=== PATIENT | female | born 1940 | race Caucasian/White ===

== ENCOUNTER → 2017-04-30 | Outpatient (CLI) | payer MEDICARE ==
--- NOTE | 2017-04-30 19:14 | CT ---
EXAMINATION TYPE: CT brain wo con DATE OF EXAM: 04/30/2017 COMPARISON: 01/21/2016 HISTORY: Follow up CVA. CT DLP: 1118 mGycm Automated exposure control for dose reduction was used. FINDINGS: Calvarium intact. No acute hemorrhage. Intracranial atherosclerotic changes are noted. Persistent diffuse abnormal attenuation throughout the right cerebellum. This may be related to previ ous ischemia or a less likely consideration would be an arachnoid cyst. Findings are stable. Nonspecific white matter changes are seen bilaterally. Area of low attenuation in the left occipital parietal junction is seen suggestive of additional focal area of ischemia. IMPRESSION: 1. Nonspecific white matter changes most typical remote microvascular ischemia. 2. Remote infarct involving the left occipital parietal junction and right cerebellum suspected. Arac hnoid cyst less likely consideration regard to the right cerebellar hemisphere. Follow-up with MRI co uld BE obtained as clinically warranted.
== END | disposition home or self-care (01) ==
LOC: RADCTMAIN 17:40
PROVIDERS: ATTEND Family Medicine
DX: G93.0 Cerebral cysts (principal); R90.89 Other abnormal findings on diagnostic imaging of central nervous system
CPT/HCPCS: 70450

== ENCOUNTER → 2017-07-23 | Outpatient (CLI) | payer MEDICARE ==
[~2017-07-23] MED LIST: REGADENOSON 0.4 MG/5 ML SYRINGE IV ONE
--- NOTE | 2017-07-23 09:20 | US ---
EXAMINATION TYPE: US carotid duplex BILAT DATE OF EXAM: 07/23/2017 COMPARISON: NONE CLINICAL HISTORY: I10.0 hypertension. Stroke EXAM MEASUREMENTS: RIGHT: Peak Systolic Velocity (PSV) cm/sec ----- Right CCA: 57.5 ----- Right ICA: 71.5 ----- Right ECA: 68.5 ICA/CCA ratio: 1.2 RIGHT: End Diastole cm/sec ----- Right CCA: 17.6 ----- Right ICA: 23.9 ----- Right ECA: 12.4 LEFT: Peak Systolic Velocity (PSV) cm/sec ----- Left CCA: 44.2 ----- Left ICA: 98.0 ----- Left ECA: 47.9 ICA/CCA ratio: 2.2 LEFT: End Diastole cm/sec ----- Left CCA: 17.6 ----- Left ICA: 28.4 ----- Left ECA: 8.6 VERTEBRALS (direction of flow): Right Vertebral: Antegrade Left Vertebral: Antegrade Rhythm: Normal Technically difficult study due to patient heavy breathing Bilateral intimal thickening, no elevated velocities but left ICA/CCA ratio of 2.2. This is likely du e to the slightly low velocity within the left common carotid artery. IMPRESSION: Mild degree of grayscale atheromatous plaquing with no sonographically evident hemodynam ically significant stenosis within either visualized carotid arterial system.
--- NOTE | 2017-07-23 15:59 | NM ---
EXAMINATION TYPE: NM stress lexiscan cardiolite DATE OF EXAM: 07/23/2017 COMPARISON: NONE HISTORY: Hypertension, chest pain, dizziness TECHNIQUE: After the intravenous administration of 10.61 mCi Tc 99m Sestamibi - Cardiolite resting S PECT images acquired 50 minutes post injection. The patient received 0.4mg Lexiscan, 25 mCi Tc 99m Sestamibi - Stress images obtained 30 minutes post injection FINDINGS: No fixed or reversible perfusion defects are evident. Polar maps suggests an apex defect wh ich is not identified on the SPECT images. Ejection fraction is 71% which is normal. Gated wall motion appears normal IMPRESSION: 1. No stress-induced ischemic changes.
--- NOTE | 2017-07-24 11:34 | EST ---
EXERCISE STRESS DATE OF SERVICE: 07/23/2017 TYPE OF REPORT: Lexiscan Cardiolite INDICATIONS: Chest pain. BASELINE HEART RATE: 61 BASELINE BLOOD PRESSURE: 125/77 MAXIMUM HEART RATE: 75 MAXIMUM BLOOD PRESSURE: 140/81 85% MPHR 124 100% MPHR 146 METs MAX STAGE REACHED: TOTAL EXERCISE TIME: CLINICAL INFORMATION: RESULTS: Patient was given Lexiscan injection over a period of 15 seconds. Peak heart rate of 75, was achieved. Maximum blood pressure 140/81 mmHg was noted. The resting EKG shows normal sinus rhythm with normal WA interval and QRS duration and normal ST-T waves. No ST-segment depression suggestive of ischemia is noted. The results of the nuclear study will follow. MMODL / IJN: [id number] /
== END | disposition home or self-care (01) ==
LOC: RADUSWWP 08:04
PROVIDERS: ATTEND Family Medicine
DX: I65.23 Occlusion and stenosis of bilateral carotid arteries (principal); I10 Essential (primary) hypertension
CPT/HCPCS: 93017; 93880; 78452; A9500; J2785

== ENCOUNTER 2017-09-02 12:20 | Emergency (ER) | payer MEDICARE ==
[2017-09-02 12:34] VITALS: TEMP 98.3
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
--- NOTE | 2017-09-02 13:38 | XR ---
EXAMINATION TYPE: XR knee complete RT DATE OF EXAM: 09/02/2017 CLINICAL HISTORY: Right knee pain after fall TECHNIQUE: Three views of the right knee are obtained. COMPARISON: None. FINDINGS: There is no acute fracture/dislocation evident in right knee. The tri-compartment joint s paces are symmetric. Very small marginal osteophytes are seen of the distal femoral condyles. No susp icious osseous lesion. Incidentally noted fabella. The overlying soft tissue appears unremarkable. IMPRESSION: There is no acute fracture or dislocation in the right knee.
--- NOTE | 2017-09-02 13:51 | CT ---
EXAMINATION TYPE: CT brain gypsy wo con DATE OF EXAM: 09/02/2017 COMPARISON: Brain 04/30/2017 HISTORY: 76-year-old female with Fall, head and shoulder injury CT DLP: Head (1716.60) and Body (358.90) mGycm Automated exposure control for dose reduction was used. Technique: Examination of the head was done in axial plane without intravenous contrast. Coronal and sagittal reconstructions performed. CT of the cervical spine was obtained in axial plane without intravenous injection of contrast mater ial. Coronal and sagittal reformatted images were obtained from the axial views for evaluation of f ractures, spinal alignment and canal. FINDINGS: Head: There is no evidence of acute intracranial hemorrhage, acute ischemic changes, mass, mass-effect, or extra-axial fluid collection. There is no effacement of cerebral sulci or basal subarachnoid cister ns. There is no hydrocephalus. There is no midline shift. Ivan-white matter distinction is preserv ed. Stable CSF space inferior right cerebellar hemisphere and small area of encephalomalacia posterior le ft occipital lobe. Stable moderate to severe patchy white matter hypodensities in both cerebral hemispheres. Mastoid air cells well pneumatized. Orbits and globes appear intact. No calvarial fracture seen. Cervical spine: No craniocervical junction abnormality, predental space widening, or prevertebral soft tissue swellin g. Reversal of the normal cervical lordosis with moderate disc/endplate degenerative change mid to lower cervical spine. Facet and uncovertebral joint arthropathy is present with grade 1 retrolisthesis at C5-C6 and grade 1 anterolisthesis at C7-T1 and T1-T2. Discussed by complexes at C4-C5 and C5-C6 mildly narrowing the spinal canal encroaching onto the left paracentral region. Variable mild to moderate neuroforaminal narrowing mid to lower cervical spine. No acute fracture seen. Degenerative changes at the TMJs. Sagittal and coronal reformatted images confirm above findings. COMBINED IMPRESSION: Head: 1. No acute intracranial abnormality seen. 2. Stable old infarct posterior left occipital lobe and large CSF space inferior right cerebellar hem isphere either due to old PICA infarct or underlying arachnoid cyst with the former being favored. Mo derate to severe patchy white matter changes are also unchanged and likely relate to chronic small ve ssel ischemic disease. Cervical spine: 3. No acute fracture of the cervical spine. Moderate spondylotic change with reversal of the normal c ervical lordosis. Degenerative grade 1 spondylolisthesis at a few levels.
--- NOTE | 2017-09-02 13:56 | CT ---
EXAMINATION TYPE: CT facial bones wo con DATE OF EXAM: 09/02/2017 COMPARISON: None HISTORY: 76-year-old female with pain after fall, head and shoulder injury TECHNIQUE: Contiguous axial scanning of the facial bones without IV contrast. Coronal reconstructions performed. CT DLP: Head (1716.60) and Body (358.90) mGycm Automated exposure control for dose reduction was used. FINDINGS: There is mild contusion along the left frontal region. Orbits and globes appear intact. Leftward nasal septal deviation. No nasal bone fracture. The zygomat ic arches and pterygoid plates remain intact. The inferior most aspects of the maxillary are outside the field of view and a greater portion includ ed after a rescan from the mid orbits down. Degenerative changes at the TMJs IMPRESSION: NO ACUTE FACIAL BONE FRACTURE SEEN. MILD LEFT FRONTAL SCALP CONTUSION.
--- NOTE | 2017-09-02 14:06 | XR ---
EXAMINATION TYPE: XR shoulder complete RT DATE OF EXAM: 09/02/2017 CLINICAL HISTORY: Fall with subsequent right shoulder pain TECHNIQUE: Three views of the right shoulder are obtained. COMPARISON: None. FINDINGS: There is no acute fracture/dislocation evident in the right shoulder. The acromioclavicul ar and glenohumeral joint spaces appear within normal limits. The visualized ribs are intact and unr emarkable. Multiple metallic densities are seen external to the patient. IMPRESSION: There is no acute fracture or dislocation in the right shoulder.
[2017-09-02 14:43] VITALS: BP 128/74; PULSE 74; RESP 16
== END 2017-09-02 14:40 | disposition home or self-care (01) ==
LOC: EC 12:20
DX: S43.401A Unspecified sprain of right shoulder joint, initial encounter (principal); S00.12XA Contusion of left eyelid and periocular area, initial encounter; S80.01XA Contusion of right knee, initial encounter; M25.511 Pain in right shoulder; R90.82 White matter disease, unspecified; M47.812 Spondylosis without myelopathy or radiculopathy, cervical region; M43.8X2 Other specified deforming dorsopathies, cervical region; E78.5 Hyperlipidemia, unspecified; E07.9 Disorder of thyroid, unspecified; F41.9 Anxiety disorder, unspecified; Z79.02 Long term (current) use of antithrombotics/antiplatelets; Z79.899 Other long term (current) drug therapy; Z86.718 Personal history of other venous thrombosis and embolism; W18.09XA Striking against other object with subsequent fall, initial encounter; Y92.015 Private garage of single-family (private) house as the place of occurrence of the external cause
CPT/HCPCS: 70450; 70486; 72125; 99284

== ENCOUNTER → 2018-07-21 | Outpatient (CLI) | payer MEDICARE ==
--- NOTE | 2018-07-21 14:32 | US ---
EXAMINATION TYPE: US carotid duplex BILAT DATE OF EXAM: 07/21/2018 COMPARISON: NONE CLINICAL HISTORY: In10 hypertension. h/o stroke, hypertension EXAM MEASUREMENTS: RIGHT: Peak Systolic Velocity (PSV) cm/sec ----- Right CCA: 99.3 ----- Right ICA: 65.1 ----- Right ECA: 109.5 ICA/CCA ratio: 0.7 RIGHT: End Diastole cm/sec ----- Right CCA: 22.3 ----- Right ICA: 14.5 ----- Right ECA: 25.4 LEFT: Peak Systolic Velocity (PSV) cm/sec ----- Left CCA: 57.9 ----- Left ICA: 69.0 ----- Left ECA: 11.7 ICA/CCA ratio: 1.2 LEFT: End Diastole cm/sec ----- Left CCA: 16.6 ----- Left ICA: 27.3 ----- Left ECA: 11.7 VERTEBRALS (direction of flow): Right Vertebral: Antegrade Left Vertebral: Antegrade Rhythm: Normal Challenging study due to heavy breathing. Mild heterogeneous plaque seen with no significant stenosis . IMPRESSION: Mild degree of grayscale atheromatous plaquing with no sonographically evident hemodynam ically significant stenosis within either visualized carotid arterial system. Criteria for Assigning % of Stenosis / Diameter reduction (Estimation based on the indirect measurements of the internal carotid artery velocities (ICA PSV). 1. Normal (no stenosis)=ICA PSV < 125 cm/s: ratio < 2.0: ICA EDV<40 cm/s. 2. Less than 50% stenosis=ICA PSV < 125 cm/s: ratio < 2.0: ICA EDV<40 cm/s. 3. 50 to 69% stenosis=ICA PSV of 125 to 230 cm/s: ration 2.0 ? 4.0: ICA EDV 40-100 cm/s. 4. Greater than 70% stenosis to near occlusion= ICA PSV > 230 cm/s: ratio > 4.0: ICA EDV > 100 cm/s. 5. Near occlusion= ICA PSV velocities may be low or undetectable: variable ratio and ICA EDV. 6. Total occlusion=unable to detect flow.
--- NOTE | 2018-07-21 19:08 | ECHOF ---
Referral Reason:In10 hypertension MEASUREMENTS -------- HEIGHT: 165.1 cm WEIGHT: 73.0 kg BP: IVSd: 0.9 cm (0.6 - 1.1) LVIDd: 4.1 cm (3.9 - 5.3) LVPWd: 1.0 cm (0.6 - 1.1) IVSs: 1.3 cm LVIDs: 2.8 cm LVPWs: 1.6 cm LAESV Index (A-L): 23.99 ml/m Ao Diam: 3.5 cm (2.0 - 3.7) AV Cusp: 2.7 cm (1.5 - 2.6) LA Diam: 2.1 cm (2.7 - 3.8) MV EXCURSION: 21.866 mm (> 18.000) MV EF SLOPE: 108 mm/s (70 - 150) EPSS: 1.7 cm MV E Bradly: 0.93 m/s MV DecT: 159 ms MV A Bradly: 1.01 m/s MV E/A Ratio: 0.92 AV maxP.04 mmHg AV meanP.82 mmHg AR PHT: 485 ms RAP: 15.00 mmHg RVSP: 35.19 mmHg FINDINGS -------- Sinus rhythm. This was a technically good study. The left ventricular size is normal. Left ventricular wall thickness is normal. Overall left vent ricular systolic function is low-normal with, an EF between 50 - 55 %. The right ventricle is normal in size. Normal LA size by volume 22+/-6 ml/m2. The right atrial size is normal. Interatrial and interventricular septum intact. Aortic valve is trileaflet and is mildly thickened. There is mild aortic valve sclerosis. There i s moderate aortic regurgitation. Peak/mean gradient across the Aortic Valve is 12.04mmHg / 4.82mmHg . The mitral valve leaflets are mildly thickened. Mild mitral annular calcification present. Mild m itral regurgitation is present. Mild tricuspid regurgitation present. There is no evidence of pulmonary hypertension. The right v entricular systolic pressure, as measured by Doppler, is 35.19mmHg. There is no pulmonic regurgitation present. The aortic root size is normal. The inferior vena cava is mildly dilated. There is no pericardial effusion. CONCLUSIONS -------- 1. Sinus rhythm. 2. This was a technically good study. 3. The left ventricular size is normal. 4. Left ventricular wall thickness is normal. 5. Overall left ventricular systolic function is low-normal with, an EF between 50 - 55 %. 6. The right ventricle is normal in size. 7. Normal LA size by volume 22+/-6 ml/m2. 8. The right atrial size is normal. 9. Interatrial and interventricular septum intact. 10. Aortic valve is trileaflet and is mildly thickened. 11. There is mild aortic valve sclerosis. 12. There is moderate aortic regurgitation. 13. Peak/mean gradient across the Aortic Valve is 12.04mmHg / 4.82mmHg. 14. The mitral valve leaflets are mildly thickened. 15. Mild mitral annular calcification present. 16. Mild mitral regurgitation is present. 17. Mild tricuspid regurgitation present. 18. There is no evidence of pulmonary hypertension. 19. The right ventricular systolic pressure, as measured by Doppler, is 35.19mmHg. 20. There is no pulmonic regurgitation present. 21. The aortic root size is normal. 22. The inferior vena cava is mildly dilated. 23. There is no pericardial effusion. DISASTER RECOVERY ANALYST: Nancy Greer RDCS
== END | disposition home or self-care (01) ==
LOC: RADECHMAIN 13:17
PROVIDERS: ATTEND Family Medicine
DX: I65.23 Occlusion and stenosis of bilateral carotid arteries (principal); I10 Essential (primary) hypertension
CPT/HCPCS: 93306; 93880

== ENCOUNTER 2018-07-27 08:23 | Day surgery (SDC) | payer MEDICARE ==
[2018-07-22 09:12] VITALS: BMI 26.8
[~2018-07-27 08:23] MED LIST changes: +LACTATED RINGERS 1,000 ML IV SCH; +LIDOCAINE 1% 20 ML VIAL (10MG/ML) FOR IV START INTRADERMA PRN; -REGADENOSON 0.4 MG/5 ML SYRINGE IV ONE; +TETRACAINE 0.5% OPHTH (PF) DROPS 4 ML BTL OP ONE
[2018-07-27 09:00] VITALS: TEMP 98.1
[2018-07-27] MEDS: PILOCARPINE 2% OPHTH DROPS 15 ML BTL OP ONE ×3 (09:08→09:28)
[2018-07-27] MEDS ORDERED: MIDAZOLAM 2 MG/2 ML VIAL ONE (09:53)
[2018-07-27] MEDS ORDERED: fentaNYL (PF) 50 MCG/ML 2 ML AMP ONE (09:53)
[2018-07-27] MEDS ORDERED: BALANCED SALT IRRIG SOLN COMB2 15 ML IRRIG.SOLN INTRAOCULA ONE (10:11)
[2018-07-27] MEDS ORDERED: BALANCED SALT IRRIG SOLN COMB2 500 ML IRRIGATION ONE (10:12)
[2018-07-27] MEDS ORDERED: TRYPAN BLUE 0.06% SYRINGE 0.5 ML SYRINGE INTRAOCULA ONE (10:12)
[2018-07-27] MEDS ORDERED: ATROPINE OPHTH SOLN 1% 2 ML BTL RIGHT EYE ONE (10:19)
[2018-07-27] MEDS ORDERED: TIMOLOL 0.5% OPHTH SOLN (PF) 0.2 ML DROPERETTE RIGHT EYE ONE (10:20)
[2018-07-27] MEDS ORDERED: LIDOCAINE 1% (PF) 10 MG/ML (30 ML SDV) INTRAARTIC ONE (10:20)
[2018-07-27] MEDS ORDERED: MOXIFLOXACIN HCL 0.5% DROPS 3 ML BTL RIGHT EYE ONE (10:22)
--- NOTE | 2018-07-27 11:08 | P.OP ---
Date of Procedure: 07/27/18 Preoperative Diagnosis: Fuch's dystrophy Postoperative Diagnosis: same Procedure(s) Performed: DMEK Implants: none Anesthesia: MAC Surgeon: Adama Toribio Estimated Blood Loss (ml): 0 Pathology: other Condition: stable Disposition: same day Indications for Procedure: blurring vision Operative Findings: No complications
[2018-07-27 11:30] VITALS: RESP 16
[2018-07-27 12:30] VITALS: BP 153/84; PULSE 66
--- NOTE | 2018-07-27 15:20 | OP ---
OPERATIVE REPORT DATE OF SURGERY: 07/27/2018 PROCEDURE: Descemet's membrane and endothelial keratoplasty of the right eye. 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 SURGEON: Dr. Adama Toribio. ANESTHESIA: Topical. ESTIMATED BLOOD LOSS: None. SPECIMEN TAKEN: None. After obtaining the appropriate consent, the patient was brought to the operating room. There she was placed under cardiac monitoring, prepped and draped in the usual sterile manner. She was approached from her right temporal side and 4 paracenteses were placed in each of the diagonal quadrants with an MVR blade. This was followed by installation of lidocaine MPF 50-50 mix with balanced salt solution into the anterior chamber. Once this was accomplished, Tri san blue was used to stain the tissues of the anterior chamber and was left in place for 3 minutes. Once irrigated away. The anterior chamber was then stabilized with Amvisc, an 8 mm keratome was placed on the patient's cornea and lightly indented into the epithelium. Gentian eduardo was then used to outline the layton of this ring. At the 9 o'clock position a 2.5 mm keratome was used to create a self-sealing corneal flap incision which was enlarged slightly to accommodate a Razo tube opening. A Abound Solarskey hook was introduced into the anterior chamber and used in the outline and placed on the patient's corneal epithelium. A quartz valley was identified using the Descemet's stripper. The epithelium from the center area of the cornea was removed in its entirety. Once the tissue was removed, all the remaining viscoelastic was removed under irrigation aspiration, leaving behind nothing more than balanced salt solution in the patient's anterior chamber. The anterior chamber was deflated slightly to accommodate the donor tissue. The donor tissue as identified as [id number], the [id number]. As cornea an ophthalmology yes, lamellar posterior layer only. This was brought to the field after removal from its transport container and prepared for patient delivery. The tissue was delivered without any problem into the patient's anterior chamber and a temporal incision was closed in a single 10-0 nylon suture. Once the incision was closed, the tissue was manipulated to orient it in the correct anterior-posterior orientation. An "S" layton had been placed on the donor tissue which helped identify the proper orientation. Once the tissue was reasonably well centered, a small amount of air was used to buoy it against the patient's corneal stroma with a little bit of minor manipulation to further center the donor tissue. Once this was accomplished, a 20% SF6 was injected into the patient's anterior chamber, which was left in place for approximately 20 minutes. The patient remained capable of seeing light through the entire hypertensive phase of the procedure and at the end of the 20 minutes time, a small amount of SF 6 was removed and balanced salt solution was used to replace it leaving the eye approximately 40% filled with SF6 gas. The patient was then returned to the recovery area where she remained supine for an additional hour and a half. At the end of that time, she was examined under slit lamp, corneal tissue appeared to be in good position. The patient was comfortable and was then sent to be released from recovery to home. There were no complications from this procedure. She tolerated the procedure well. ERIKA / KT: [id number] /
== END 2018-07-27 13:03 | disposition home or self-care (01) ==
LOC: OR 08:23
PROVIDERS: ATTEND Ophthalmology
DX: H18.51 Endothelial corneal dystrophy (principal); H26.492 Other secondary cataract, left eye; Z98.42 Cataract extraction status, left eye; Z98.41 Cataract extraction status, right eye; Z94.7 Corneal transplant status; Z96.1 Presence of intraocular lens; I11.9 Hypertensive heart disease without heart failure; E07.9 Disorder of thyroid, unspecified; Z87.891 Personal history of nicotine dependence; E78.5 Hyperlipidemia, unspecified; I69.393 Ataxia following cerebral infarction; M19.90 Unspecified osteoarthritis, unspecified site; J45.909 Unspecified asthma, uncomplicated; Z79.02 Long term (current) use of antithrombotics/antiplatelets; Z79.890 Hormone replacement therapy; Z79.899 Other long term (current) drug therapy
CPT/HCPCS: 87070; 87205; 87075; 65756; 65757; V2785; J2250; J2001; J3010

== ENCOUNTER → 2018-10-04 | Outpatient (CLI) | payer MEDICARE ==
--- NOTE | 2018-10-05 10:34 | MR ---
EXAMINATION TYPE: MR brain wo/w con DATE OF EXAM: 10/04/2018 COMPARISON: CT brain 09/02/2017 HISTORY: 77-year-old female CVA, dizziness, bilateral arm tingling TECHNIQUE: Fast brain protocol was utilized as the patient was having difficulty holding still. Mult iplanar, multisequence images of the brain and brainstem is performed without and with IV contrast, u tilizing 7.5 mL intravenous Gadavist . Diffusion-weighted imaging is performed. FINDINGS: Absence of the inferior left cerebellar hemisphere suspected be secondary to prior large infarct. Diffusion weighted images demonstrate no evidence of a recent infarct or other diffusion abnormality. There is no extra-axial fluid collection collection. Mild generalized supratentorial volume loss. T2/FLAIR weighted sequences show severe patchy burden of right white matter change in both cerebral h emispheres located within the subcortical, deep, and periventricular region of both cerebral hemisphe res. Additional T2 bright gliosis is present along the encephalomalacia margin in the right cerebella r hemisphere. The ventricular system and cisternal spaces are normal in size and appearance. The brain volume is a ge appropriate. Midline structures demonstrate normal morphology. The craniocervical junction appears within normal limits. Post contrast images demonstrate no abnormal enhancement. The dural venous sinuses appear patent. The visualized sinuses are clear and the globes are intact. Leftward nasal septal deviation. IMPRESSION: 1. Absence/encephalomalacia involving the inferior aspect of the right cerebellar hemisphere suggesti ng prior large infarct. Clinically correlate. 2. Extensive patchy T2 bright white matter change suggesting severe burden of chronic small vessel is chemic disease. 3. No acute intracranial abnormality seen. 4. No enhancing lesions.
== END | disposition home or self-care (01) ==
LOC: RADMRIMAIN 13:56
PROVIDERS: ATTEND Family Medicine
DX: G93.89 Other specified disorders of brain (principal); I67.9 Cerebrovascular disease, unspecified
CPT/HCPCS: 70553; A9585

== ENCOUNTER 2019-09-04 16:03 | Inpatient (IN) | payer MEDICARE ==
[2019-09-04] MEDS ORDERED: hydrALAZINE HCL 20 MG/ML 1 ML VIAL IVP PRN (18:24)
[2019-09-04] MEDS ORDERED: MECLIZINE 25 MG TAB PO PRN (18:26)
[2019-09-04 19:16] LABS: ALT 14 U/L (4-34); AST 25 U/L (14-36); African American GFR (CKD) >90 (>60 ml/min/1.73 sqM); Albumin 4.2 g/dL (3.5-5.0); Alkaline Phosphatase 42 U/L (38-126); Anion Gap 9 mmol/L; Blood Urea Nitrogen 14 mg/dL (7-17); Carbon Dioxide 28 mmol/L (22-30); Chloride 104 mmol/L (98-107); Glucose 104 mg/dL (74-99); Non-African American GFR(CKD) 82 (>60 ml/min/1.73 sqM); Potassium 3.5 mmol/L (3.5-5.1); Sodium 141 mmol/L (137-145); Total Bilirubin 0.4 mg/dL (0.2-1.3); Total Protein 6.6 g/dL (6.3-8.2)
[2019-09-04 19:26] LABS: Basophils # (A) 0.1 k/uL (0-0.2); Basophils % (A) 1 %; Eosinophils # (A) 0.2 k/uL (0-0.7); Eosinophils % (A) 2 %; HCT 36.9 % (34.0-46.0); HGB 12.1 gm/dL (11.4-16.0); Lymphocytes # (A) 1.8 k/uL (1.0-4.8); Lymphocytes % (A) 22 %; MCH 28.5 pg (25.0-35.0); MCHC 32.9 g/dL (31.0-37.0); MCV 86.6 fL (80.0-100.0); Mean Platelet Volume 8.2; Monocytes # (A) 0.5 k/uL (0-1.0); Monocytes % (A) 6 %; Neutrophils # (A) 5.8 k/uL (1.3-7.7); Neutrophils % (A) 68 %; Platelet Count 248 k/uL (150-450); RBC 4.25 m/uL (3.80-5.40); RDW 14.5 % (11.5-15.5); WBC 8.5 k/uL (3.8-10.6)
[2019-09-04 20:20] LABS: Appearance,Urine Clear (Clear); Bilirubin,Urine Negative (Negative); Blood,Urine Negative (Negative); Color,Urine Yellow; Glucose,Urine (UA) Negative (Negative); Ketones,Urine Negative (Negative); Leukocyte Esterase,Urine Moderate (Negative); Mucus,Urine Few /hpf; Nitrite,Urine Negative (Negative); PH, Urine 5.5 (5.0-8.0); Protein,Urine Negative (Negative); RBC,Urine 2 /hpf (0-5); Specific Gravity,Urine 1.014 (1.001-1.035); Urobilinogen,Urine <2.0 mg/dL (<2.0); WBC,Urine 12 /hpf (0-5)
[2019-09-04] MEDS ORDERED: ACETAMINOPHEN TAB 325 MG TAB PO STA (20:40)
[2019-09-05 04:12] LABS: Hemoglobin A1C 5.8 % (4.0-6.0)
[2019-09-05] MEDS ORDERED: ACETAMINOPHEN TAB 325 MG TAB PO STA ×2 (05:12→15:44)
[2019-09-05] MEDS: LEVOTHYROXINE 75 MCG TAB PO SCH (06:34)
[2019-09-05 06:52] LABS: Basophils % (A) 1 %; Eosinophils # (A) 0.2 k/uL (0-0.7); Eosinophils % (A) 2 %; HCT 35.3 % (34.0-46.0); HGB 11.5 gm/dL (11.4-16.0); Lymphocytes # (A) 1.7 k/uL (1.0-4.8); Lymphocytes % (A) 22 %; MCH 28.2 pg (25.0-35.0); MCHC 32.6 g/dL (31.0-37.0); MCV 86.6 fL (80.0-100.0); Mean Platelet Volume 8.4; Monocytes # (A) 0.5 k/uL (0-1.0); Monocytes % (A) 6 %; Neutrophils # (A) 5.2 k/uL (1.3-7.7); Neutrophils % (A) 67 %; Platelet Count 235 k/uL (150-450); RBC 4.08 m/uL (3.80-5.40); RDW 14.5 % (11.5-15.5); WBC 7.8 k/uL (3.8-10.6)
[2019-09-05 07:02] LABS: ALT 13 U/L (4-34); AST 24 U/L (14-36); African American GFR (CKD) >90 (>60 ml/min/1.73 sqM); Albumin 3.7 g/dL (3.5-5.0); Alkaline Phosphatase 43 U/L (38-126); Anion Gap 5 mmol/L; Blood Urea Nitrogen 12 mg/dL (7-17); Calcium 8.8 mg/dL (8.4-10.2); Carbon Dioxide 28 mmol/L (22-30); Chloride 105 mmol/L (98-107); Glucose 95 mg/dL (74-99); Non-African American GFR(CKD) 84 (>60 ml/min/1.73 sqM); Potassium 3.5 mmol/L (3.5-5.1); Sodium 138 mmol/L (137-145); Total Bilirubin 0.5 mg/dL (0.2-1.3); Total Protein 6.2 g/dL (6.3-8.2)
[2019-09-05] MEDS: FENOFIBRATE 160 MG TAB PO SCH (08:06)
[2019-09-05] MEDS: ASPIRIN 81 MG PO SCH (08:06)
[2019-09-05] MEDS: CITALOPRAM HYDROBROMIDE 20 MG TAB PO SCH (08:06)
[2019-09-05] MEDS: ATORVASTATIN 10 MG TAB PO SCH (08:06)
[2019-09-05] MEDS: DILTIAZEM CD 240 MG CAP.ER.24H PO SCH (08:06)
[2019-09-05] MEDS ORDERED: CLOPIDOGREL 75 MG TAB PO SCH (09:00)
--- NOTE | 2019-09-05 09:20 | MR ---
EXAMINATION TYPE: MR brain wo/w con DATE OF EXAM: 09/05/2019 COMPARISON: 10/04/2018 HISTORY: cva/tia, Headaches, Preasure in head behind eyes, hx of prior stroke TECHNIQUE: Multiplanar, multisequence images of the brain and brainstem is performed without and with IV contras t, utilizing 7.5 mL intravenous Gadavist . FINDINGS: Diffusion weighted images demonstrate a 5 mm area of high signal in the left occipital lobe image 11. No remaining areas of abnormal signal on diffusion. There is mild generalized degenerative change with diffuse confluent and numerous focal areas of abno rmal signal throughout the white matter bilaterally a pattern most typical remote ischemia. Abnormal signal noted in the left occipital lobe and within the right cerebellum compatible with previous infa rction and encephalomalacia. No midline shift or mass effect. No enhancing mass. Midline structures demonstrate normal morphology. The craniocervical junction appears within normal limits. Post contrast images demonstrate no abnormal enhancement. The dural venous sinuses appear pa tent. Changes of chronic sinusitis and nasal septal deviation noted. Orbits are symmetric. There is s ome ectasia of the optic nerve which is a nonspecific finding. IMPRESSION: 1. Findings are compatible with a small and left occipital lobe 5 mm area of acute to subacute ischem ia left occipital lobe. 2. Degenerative and diffuse nonspecific white matter changes most typical remote ischemia. 3. Remote areas of infarction
--- NOTE | 2019-09-05 11:58 | P.CRDCN ---
History of Present Illness History of present illness: HISTORY OF PRESENTING ILLNESS This is a pleasant 78-year-old female past medical history significant for hypertension, dyslipidemia and prior CVA. 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 She used to see Dr. Sloan last visit was 2013. We have been asked to see in consultation for hypertension. She was sent in as a direct admit from her primary care physician secondary to persistent headache and elevated blood pressures. She states she has a full sensation in her face. She had been attributing this to sinus congestion. Her primary care physician attempted to initiate losartan however she states she cannot tolerate. She tried taking that on 3 separate occasions and a cause significant tremors. She denies symptoms of chest pain, shortness of breath, dizziness or palpitations. She underwent an MRI this mo rning revealing small left occipital lobe 5 mm area of acute to subacute ischemia. Blood pressure on arrival was 172/75 and 168/92. Repeat this morning 135/76 with a heart rate of 65. She underwent an echocardiogram July 2018 revealing preserved LV systolic function with ejection fraction 50-55% with mild aortic stenosis with a mean gradient of 4 mmHg. Lexiscan stress test performed in 2017 was negative for stress-induced reversible ischemia. Currently maintained on aspirin 81 mg daily, Plavix 75 mg daily, diltiazem 240 mg daily, chlorthalidone 25 mg every other day and rosuvastatin 5 mg daily. No acute EKG changes. REVIEW OF SYSTEMS At the time of my exam: CONSTITUTIONAL: Denies fever or chills. CARDIOVASCULAR: Denies chest pain, shortness of breath, orthopnea, PND or palpitations. RESPIRATORY: Denies cough. GASTROINTESTINAL: Denies abdominal pain, diarrhea, constipation, nausea or vomiting. MUSCULOSKELETAL: Denies myalgias. NEUROLOGIC: Denies numbness, tingling or weakness. ENDOCRINE: Denies fatigue, weight change, polydipsia or polyurina. GENITOURINARY: Denies burning, hematuria or urgency with micturation. HEMATOLOGIC: Denies history of anemia or bleeding. PHYSICAL EXAMINATION CONSTITUTIONAL: No apparent distress. HEENT: Head is normocephalic. Pupils are equal, round. Sclerae anicteric. Mucous membranes of the mouth are moist. No JVD. No carotid bruit. CHEST EXAMINATION: Lungs are clear to auscultation. No chest wall tenderness is noted on palpation or with deep breathing. HEART EXAMINATION: Regular rate and rhythm. S1, S2 heard. No murmurs, gallops or rub. ABDOMEN: Soft, nontender. Positive bowel sounds. EXTREMITIES: 2+ peripheral pulses, no lower extremity edema and no calf tenderness. NEUROLOGIC EXAMINATION: Patient is awake, alert and oriented x3. ASSESSMENT Possible subacute intracranial infarct awaiting neurology evaluation Hypertension Dyslipidemia PLAN Continue current medical regimen. Await neurologic evaluation. Blood pressures this morning were well-controlled with no changes to her medication profile. Thank you kindly for this consultation. Nurse Practitioner note has been reviewed, I agree with a documented findings and plan of care. Patient was seen and examined. Past Medical History Past Medical History: CVA/TIA, Hyperlipidemia, Hypertension, Osteoarthritis (OA), Thyroid Disorder Additional Past Medical History / Comment(s): EGD History of Any Multi-Drug Resistant Organisms: None Reported Past Surgical History: Cholecystectomy, Tubal Ligation Additional Past Surgical History / Comment(s): LEFT KNEE SURGERY Past Anesthesia/Blood Transfusion Reactions: Blood Transfusion Reaction, Motion Sickness Additional Past Anesthesia/Blood Transfusion Reaction / Comment(s): "'LOSS OF CONSCIOUSNESS WITH A BLODD TRANSFUSION REACTION -CAN TAKE PLASMA SHOTS" PER PATIENT Past Psychological History: Anxiety Smoking Status: Former smoker Past Alcohol Use History: Rare Additional Past Alcohol Use History / Comment(s): STARTED SMOKING AT AGE 15 QUIT AT AGE 54 SMOKED 1PPD Past Drug Use History: None Reported - Past Family History Mother Family Medical History: Blood Disorder, CVA/TIA, Hypertension, Myocardial Infarction (OR) Additional Family Medical History / Comment(s): MASSIVE OR Father Family Medical History: Cancer Additional Family Medical History / Comment(s): COLON CA Medications and Allergies Home Medications Medication Instructions Recorded Confirmed Type Clopidogrel [Plavix] 75 mg PO DAILY 09/04/15 09/04/19 History Levothyroxine Sodium [Synthroid] 75 mcg PO DAILY 09/04/15 09/04/19 History Citalopram Hydrobromide [CeleXA] 20 mg PO DAILY 09/02/17 09/04/19 History Diltiazem HCl [Diltiazem ER] 240 mg PO DAILY 09/02/17 09/04/19 History Fenofibrate 160 mg PO DAILY 09/02/17 09/04/19 History Aspirin EC [Ecotrin Low Dose] 81 mg PO DAILY 07/22/18 09/04/19 History Chlorthalidone [Hygroton] 25 mg PO Q48H 09/04/19 09/04/19 History Meclizine [Antivert] 25 mg PO DAILY PRN 09/04/19 09/04/19 History Rosuvastatin Calcium 5 mg PO DAILY 09/04/19 09/04/19 History Allergies Allergy/AdvReac Type Severity Reaction Status Date / Time losartan AdvReac shaking Verified 09/04/19 16:55 hands/headache Physical Exam Vitals: Vital Signs Temp Pulse Pulse Resp BP Pulse Ox 09/05/19 09:35 97.8 F 73 16 166/97 09/05/19 07:34 98.1 F 65 18 135/76 95 09/05/19 04:30 97.8 F 67 16 137/68 93 L 09/05/19 04:00 67 16 09/04/19 23:30 67 16 09/04/19 22:30 98.7 F 66 15 147/86 95 09/04/19 19:35 98.7 F 67 16 167/87 95 09/04/19 19:30 67 16 09/04/19 17:27 66 168/92 09/04/19 16:55 98.1 F 79 18 172/75 97 Intake and Output 09/04/19 09/05/19 09/05/19 22:59 06:59 14:59 Intake Total 240 Balance 240 Intake: Oral 240 Other: # Voids 1 1 1 Weight 75.5 kg Results 09/05/19 06:20 09/05/19 06:20 Cardiac Enzymes 09/04/19 09/04/19 09/05/19 Range/Units 18:44 18:44 00:35 AST 25 (14-36) U/L Troponin I <0.012 <0.012 (0.000-0.034) ng/mL 09/05/19 09/05/19 Range/Units 06:20 06:20 AST 24 (14-36) U/L Troponin I <0.012 (0.000-0.034) ng/mL CBC 09/04/19 09/05/19 Range/Units 18:45 06:20 WBC 8.5 7.8 (3.8-10.6) k/uL RBC 4.25 4.08 (3.80-5.40) m/uL Hgb 12.1 11.5 (11.4-16.0) gm/dL Hct 36.9 35.3 (34.0-46.0) % Plt Count 248 235 (150-450) k/uL Comprehensive Metabolic Panel 09/04/19 09/05/19 Range/Units 18:44 06:20 Sodium 141 138 (137-145) mmol/L Potassium 3.5 3.5 (3.5-5.1) mmol/L Chloride 104 105 (98-107) mmol/L Carbon Dioxide 28 28 (22-30) mmol/L BUN 14 12 (7-17) mg/dL Creatinine 0.72 0.70 (0.52-1.04) mg/dL Glucose 104 H 95 (74-99) mg/dL Calcium 9.0 8.8 (8.4-10.2) mg/dL AST 25 24 (14-36) U/L ALT 14 13 (4-34) U/L Alkaline Phosphatase 42 43 (38-126) U/L Total Protein 6.6 6.2 L (6.3-8.2) g/dL Albumin 4.2 3.7 (3.5-5.0) g/dL Current Medications Generic Name Dose Route Start Last Admin Trade Name Freq PRN Reason Stop Dose Admin Aspirin 81 mg 09/05/19 09:00 09/05/19 08:06 Aspirin PO 81 mg DAILY WENDY Administration Atorvastatin Calcium 10 mg 09/05/19 09:00 09/05/19 08:06 Lipitor PO 10 mg DAILY WENDY Administration Citalopram Hydrobromide 20 mg 09/05/19 09:00 09/05/19 08:06 Celexa PO 20 mg DAILY WENDY Administration Clopidogrel Bisulfate 75 mg 09/05/19 21:00 Plavix PO HS WENDY Diltiazem HCl 240 mg 09/05/19 09:00 09/05/19 08:06 Cardizem Cd PO 240 mg DAILY WENDY Administration Fenofibrate 160 mg 09/05/19 09:00 09/05/19 08:06 Lofibra PO 160 mg DAILY WENDY Administration Hydralazine HCl 10 mg 09/04/19 18:24 Apresoline IVP Q6HR PRN Blood Pressure - High Ceftriaxone Sodium 1 gm/ 50 mls @ 100 mls/hr 09/04/19 22:30 09/04/19 23:37 Sodium Chloride IVPB 100 mls/hr Q24H WENDY Administration Levothyroxine Sodium 75 mcg 09/05/19 06:30 09/05/19 06:34 Synthroid PO 75 mcg DAILY@0630 WENDY Administration Meclizine HCl 25 mg 09/04/19 18:26 Antivert PO DAILY PRN Vertigo Intake and Output 09/04/19 09/05/19 09/05/19 22:59 06:59 14:59 Intake Total 240 Balance 240 Intake: Oral 240 Other: # Voids 1 1 1 Weight 75.5 kg 09/05/19 06:20 09/05/19 06:20
--- NOTE | 2019-09-05 13:19 | HP ---
HISTORY AND PHYSICAL 78-year-old white female admitted to hospital for severe headaches, hypertension acceleration and possible CVA/TIA due to dizziness and not feeling good. She was sent for an MRI which showed remote ischemia and ischemia in the left occipital lobe within the right cerebellum compatible with previous infarction encephalomalacia. MRI shows compatible with a small and left occipital lobe 5 mm area of acute subacute ischemia in the left occipital lobe which could be a defect in her vision, remote areas of infarction. She is admitted for Cardiology, neurology consults and workup. Blood pressure will be treated if it is up over 180 systolic. HOME MEDICATIONS: Are going to be continued: Diltiazem CD 240 daily, Plavix 75 daily, Celexa 20 daily, 160 daily, hydralazine p.r.n. as mentioned, Synthroid 75 mcg daily, Antivert 25 mg p.r.n., Acetaminophen p.r.n., aspirin 81 mg daily. REVIEW OF SYSTEMS: Fourteen-point review of systems negative except for mentioned in HPI. PHYSICAL EXAMINATION: Temp 97.8, blood pressure is 130s to 160s over 97, O2 is 95 on room air, pulse 60s to 70s. CARDIOVASCULAR S1, S2. LUNGS: Clear. PSYCH: Very anxious, nervous. OPHTHALMOLOGIC: Pupils equal, round, react. GI soft, nontender. HEMATOLOGY: Negative Homans. MUSCULOSKELETAL: Range of motion full x4. ASSESSMENT: 1. Transient ischemic attack versus acute cerebrovascular accident. 2. Hypertension acceleration. 3. Chronic dizziness, migraines and cephalgias due to hypertension acceleration. 4. Hypothyroidism. Neuro and cardiology consult. Continue on Plavix and aspirin. Prognosis guarded. Risk factor modification. MMODL / IJN: [id number] /
--- NOTE | 2019-09-05 15:32 | P.CNNES ---
History of Present Illness Consult date: 09/05/19 Requesting physician: Ottoniel Garcia Reason for Consult: Hypertension History of Present Illness: Patient is a 78-year-old female who has history of hypertension, came to the hospital because of headache and uncontrolled blood pressure. Patient states that she has history of hypertension since she was in her 30s, but it was well controlled. In the last 1-1/2 months, her blood pressure has been running more erratic. She also started having headaches pointing to bilateral eyes, bilateral temporal region. She would take medication and it will go away but then comes back. The headache may go up to 10/10. At present it is 6/10. Patient was seen by her primary physician, and her blood pressure was noted to be 178/90, therefore was transferred to the hospital for further management. Her vital signs on arrival was blood pressure 172/75, pulse rate 79, temperature 98.1. Patient denies any numbness tingling focal weakness. Denies any slurred speech, loss of vision or any strokelike symptoms. Denies double vision. Patient planes of some nausea but no vomiting. She is sensitive to light but not to the noise. Patient had an MRI of the brain performed today, which revealed findings compatible with a small left occipital lobe, 5 mm area of acute to subacute ischemia. Degenerative and diffuse nonspecific white matter changes most typical of remote ischemia. Evidence of old encephalomalacia in the left occipital lobe and the right cerebellum. Patient had a carotid Doppler on 07/21/2018, which revealed mild degree of grayscale atheromatous plaquing with no sonographically evident hemodynamically significant stenosis within either visualized carotid arterial system. Antegrade flow in both vertebral arteries. Patient also had a 2-D echo on 07/21/2018, which revealed normal left ventricular size and left-ventricular wall thickness. EF is 50-55%. Normal left atrial size. Interatrial and interventricular septum intact. Mild aortic valve sclerosis, moderate aortic regurgitation. Patient's CBC, Chem-20 is normal. Hemoglobin A1c 5.8. Lipid panel pending. UA showed moderate mucositis Estrace and 12 WBC. Patient has history of a right cerebellar stroke 9 years ago, in which she stat es she was in a "coma for 8-9 days". She went to rehab and had to learn to walk. She has residual deficits of problems with equilibrium from the stroke but otherwise she can function well. Patient has been on Plavix 75 mg and aspirin 81 mg, and rosuvastatin 5 mg daily prior to arrival. Patient states that about 5 weeks ago, she had stopped Plavix for a week, for anticipation of some eye procedure. However she has been back on Plavix for last 1 month. She is compliant. Patient has history of smoking 1 pack per day from age [age]. She quit 24 years ago. She has hypertension for since she was in her 30s. Patient states she has history of sinus headaches off and on for years. She would take Benadryl and it goes away. Her headaches have nausea but no vomiting. She is sensitive to light but no noise. Patient states her current headache is almost the same but not going away. Review of Systems As per HPI in detail. All other 14 point review of systems were reviewed and unremarkable. Past Medical History Past Medical History: CVA/TIA, Hyperlipidemia, Hypertension, Osteoarthritis (OA), Thyroid Disorder Additional Past Medical History / Comment(s): EGD History of Any Multi-Drug Resistant Organisms: None Reported Past Surgical History: Cholecystectomy, Tubal Ligation Additional Past Surgical History / Comment(s): LEFT KNEE SURGERY Past Anesthesia/Blood Transfusion Reactions: Blood Transfusion Reaction, Motion Sickness Additional Past Anesthesia/Blood Transfusion Reaction / Comment(s): "'LOSS OF CONSCIOUSNESS WITH A BLODD TRANSFUSION REACTION -CAN TAKE PLASMA SHOTS" PER PATIENT Past Psychological History: Anxiety Smoking Status: Former smoker Past Alcohol Use History: Rare Additional Past Alcohol Use History / Comment(s): STARTED SMOKING AT AGE 15 QUIT AT AGE 54 SMOKED 1PPD Past Drug Use History: None Reported - Past Family History Mother Family Medical History: Blood Disorder, CVA/TIA, Hypertension, Myocardial Infarction (SC) Additional Family Medical History / Comment(s): MASSIVE [place] Father Family Medical History: Cancer Additional Family Medical History / Comment(s): COLON CA Medications and Allergies Home Medications Medication Instructions Recorded Confirmed Type Clopidogrel [Plavix] 75 mg PO DAILY 09/04/15 09/04/19 History Levothyroxine Sodium [Synthroid] 75 mcg PO DAILY 09/04/15 09/04/19 History Citalopram Hydrobromide [CeleXA] 20 mg PO DAILY 09/02/17 09/04/19 History Diltiazem HCl [Diltiazem ER] 240 mg PO DAILY 09/02/17 09/04/19 History Fenofibrate 160 mg PO DAILY 09/02/17 09/04/19 History Aspirin EC [Ecotrin Low Dose] 81 mg PO DAILY 07/22/18 09/04/19 History Chlorthalidone [Hygroton] 25 mg PO Q48H 09/04/19 09/04/19 History Meclizine [Antivert] 25 mg PO DAILY PRN 09/04/19 09/04/19 History Rosuvastatin Calcium 5 mg PO DAILY 09/04/19 09/04/19 History Allergies Allergy/AdvReac Type Severity Reaction Status Date / Time losartan AdvReac shaking Verified 09/04/19 16:55 hands/headache Physical Examination - Vital Signs Vital Signs: Vital Signs Temp Pulse Pulse Resp BP Pulse Ox 09/05/19 09:35 97.8 F 73 16 166/97 09/05/19 07:34 98.1 F 65 18 135/76 95 09/05/19 04:30 97.8 F 67 16 137/68 93 L 09/05/19 04:00 67 16 09/04/19 23:30 67 16 09/04/19 22:30 98.7 F 66 15 147/86 95 09/04/19 19:35 98.7 F 67 16 167/87 95 09/04/19 19:30 67 16 09/04/19 17:27 66 168/92 09/04/19 16:55 98.1 F 79 18 172/75 97 Intake and Output 09/04/19 09/05/19 09/05/19 22:59 06:59 14:59 Intake Total 240 Balance 240 Intake: Oral 240 Other: # Voids 1 1 1 Weight 75.5 kg On examination patient is an elderly female, very pleasant in no acute distress. Patient is alert and awake oriented to time place and person. Speech and language functions are normal. Attention and concentration fund of knowledge is adequate. On cranial examination pupils are round and reactive to light, visual burr are full on confrontation with no neglect. Extraocular muscles are intact with no nystagmus. Face is symmetric, tongue protrudes the midline. Palatal elevation and sensation normal. Hearing and shoulder shrug normal. On muscle strength testing there is no pronator drift and the strength is normal in arms and legs distally and proximally. Reflexes are 1+ and patient has Babinski only on the right side. Sensory touch is equal with no neglect. She is slightly ataxic for lbkeys-[id number] and jpfb-ck-ubjr on the right. Tone and bulk of muscles normal. Gait deferred. There is no carotid bruit, S1 and S2 audible. Peripheral pulses present. No edema. Abdomen soft nontender. Chest clear. Results - Laboratory Findings CBC and BMP: 09/05/19 06:20 09/05/19 06:20 Abnormal Lab Findings: Abnormal Labs 09/04/19 09/04/19 09/05/19 18:44 19:12 06:20 Glucose 104 H Total Protein 6.2 L Ur Leukocyte Esterase Moderate H Urine WBC 12 H Urine Mucus Few H Assessment and Plan Assessment: * 78-year-old female admitted for headaches and uncontrolled blood pressure for the last 1-1/2 months. Patient's MRI of the brain revealed a very small area of acute ischemic infarction in the left occipital region, likely from small vessel disease. Patient is clinically asymptomatic. * Cephalalgia, uncertain related to sinus disease, uncontrolled blood pressure, rule out temporal arteritis. * History of right cerebellar infarct 9 years ago. * Hypertension * X tobacco use. Plan: * Continue dual antiplatelet medications and statins. * Optimize control of blood pressure. * We will check ESR and CRP to rule out temporal arteritis. * We will check CTA of head and neck to rule out intracranial atherosclerotic stenosis, rule out cerebral aneurysm. * Neurology will follow.
--- NOTE | 2019-09-05 18:30 | CT ---
EXAMINATION TYPE: CT angio head neck DATE OF EXAM: 09/05/2019 COMPARISON: None HISTORY: BURGESS CT DLP: 390 mGycm Automated exposure control for dose reduction was used. CONTRAST: Performed with IV Contrast, patient injected with 65 mL of Isovue 370. Multiple axial sections were obtained from the level of the aortic arch to the vertex of the brain wi th IV contrast and 3-D post processed images. FINDINGS: There is atheromatous change in the aortic arch. There is bilateral arterial flow in the subclavian a rteries. There is normal branching pattern of the great vessels on the aortic arch. There is bilatera l arterial flow in the common internal and external carotid arteries bilaterally. There is no signifi cant plaque formation. Lumen narrowing is less than 5%. There is bilateral arterial flow in the verte bral arteries which are fairly symmetric. There is arterial flow in the vertebrobasilar artery system . There is no evidence of carotid or vertebral artery aneurysm or dissection. There is arterial flow in the anterior middle and posterior cerebral arteries. There is no evidence o f intracranial aneurysm or neovascularity. There is no mass effect. I see no evidence of intracranial arterial stenosis. There is normal contrast opacification of the venous sinuses. IMPRESSION: Normal CT angiogram of the neck and brain for the patient's age.
[2019-09-05] MEDS ORDERED: Acetaminophen-Codeine 300-30mg TAB PO PRN (18:51)
[2019-09-05] MEDS ORDERED: LORATADINE-PSEUDOEPH 5-120 MG 1 EACH TAB.ER.12H PO PRN (19:04)
[2019-09-05] MEDS ORDERED: ONDANSETRON 4 MG/2 ML VIAL IVP PRN (20:58)
[2019-09-05] MEDS: CLOPIDOGREL 75 MG TAB PO SCH (21:19)
[2019-09-06] MEDS: HYDROcodone/APAP 5-325MG 1 EACH TAB PO PRN ×3 (01:45→20:18)
[2019-09-06 03:43] LABS: Cholesterol 110 mg/dL (<200); HDL Cholesterol 36 mg/dL (40-60); LDL Cholesterol,Calculated 36 mg/dL (0-99); Triglycerides 192 mg/dL (<150)
[2019-09-06] MEDS: LEVOTHYROXINE 75 MCG TAB PO SCH (06:22)
[2019-09-06] MEDS: ASPIRIN 81 MG PO SCH (08:00)
[2019-09-06] MEDS: FENOFIBRATE 160 MG TAB PO SCH (08:00)
[2019-09-06] MEDS: ATORVASTATIN 10 MG TAB PO SCH (08:00)
[2019-09-06] MEDS: DILTIAZEM CD 240 MG CAP.ER.24H PO SCH (08:00)
[2019-09-06] MEDS: CITALOPRAM HYDROBROMIDE 20 MG TAB PO SCH (08:03)
--- NOTE | 2019-09-06 12:56 | P.PN ---
Subjective This is Pita Saunders PA-C dictating a progress note on this patient The patient was interviewed and examined by me as well as by Dr. Moody Case discussed with Dr. Moody and he agrees with the plan of care HPI/interval history Patient is a 78-year-old female with a history of hypertension, dyslipidemia, and prior CVA who presented with complaints of headache and elevated blood pressures. MRI revealed small left occipital lobe 5 mm area of acute to subacute ischemia. Neurology following. Patient seen and examined sitting up in bed. Continues to complain of severe headache and eye pain. Denies any chest pain or shortness of breath. No palpitations. EXAMINATION Temperature 97.7F, pulse 71, respirations 16, blood pressure 155/77, oxygen saturation 94% on room air He should seen and examined sitting up in bed, gripping her head, looks uncomfortable Lungs are clear to auscultation bilaterally Heart is regular, no audible murmurs No carotid bruits appreciated REVIEW OF LABS, ECG WBC 7.8, hemoglobin 11.5, platelets 235, potassium 3.5, BUN 12, creatinine 0.7 Troponin negative LDL 36 CT angiogram of the neck and brain was normal Previous carotid Dopplers showed no hemodynamically significant stenosis IMPRESSION / ASSESSMENT: #1 subacute intracranial ischemia, neurology following #2 hypertension, blood pressure has improved #3 dyslipidemia, well controlled on Crestor #4 previous CVA 9 years ago #5 headaches, neurology following PLAN: Add Dyazide for hypertension management Obtain 2-D echocardiogram and Doppler studies with bubble study Discussed with patient workup for stroke including looking for silent atrial fibrillation as a cause of her recurrent strokes Consider implantation of a loop monitor Management of headaches per neurology Objective - Vital Signs Vital signs: Vital Signs Temp 97.7 F 09/06/19 11:11 Pulse 71 09/06/19 11:11 Resp 16 09/06/19 11:11 BP 155/77 09/06/19 11:11 Pulse Ox 94 L 09/06/19 11:11 Intake & Output 09/05/19 09/06/19 09/06/19 18:59 06:59 18:59 Intake Total 250 Output Total 180 Balance 250 -180 Intake: Oral 250 Output: Urine 180 Other: # Voids 1 1 0 - Labs CBC & Chem 7: 09/05/19 06:20 09/05/19 06:20 Labs: Abnormal Lab Results - Last 24 Hours (Table) 09/05/19 Range/Units 06:20 Triglycerides 192 H (<150) mg/dL HDL Cholesterol 36 L (40-60) mg/dL Microbiology - Last 24 Hours (Table) 09/04/19 19:12 Urine Culture - Final Urine,Voided
[2019-09-06] MEDS: BUTALB/APAP/CAFF 50-325-40MG TAB PO PRN ×3 (14:13→21:54)
--- NOTE | 2019-09-06 14:28 | P.PN ---
Subjective Progress Note Date: 09/06/19 Patient continues to have headache pointing to bifrontal temporal region, as well as in the eyeballs. She rates it 7/10 at this time. She is feeling nauseous, sometimes vomit. She always is light sensitive, but denies any noise sensitivity. Patient states that she has these headaches before, but this is more intense this time. Patient was given Brightwood, which relieves the headache for 4-5 hours but then it comes back. Objective - Vital Signs Vital signs: Vital Signs Temp 97.7 F 09/06/19 11:11 Pulse 71 09/06/19 11:11 Resp 16 09/06/19 11:11 BP 155/77 09/06/19 11:11 Pulse Ox 94 L 09/06/19 11:11 Intake & Output 09/05/19 09/06/19 09/06/19 18:59 06:59 18:59 Intake Total 250 240 Output Total 180 Balance 250 -180 240 Intake: Oral 250 240 Output: Urine 180 Other: # Voids 1 1 0 - Exam Patient's mental status, speech and language functions are normal. Muscle strength is normal. Cranial nerves normal. Appears to be in [id number]-lzzkihhr distress because of headache. - Labs CBC & Chem 7: 09/05/19 06:20 09/05/19 06:20 Labs: Abnormal Lab Results - Last 24 Hours (Table) 09/05/19 Range/Units 06:20 Triglycerides 192 H (<150) mg/dL HDL Cholesterol 36 L (40-60) mg/dL Microbiology - Last 24 Hours (Table) 09/04/19 19:12 Urine Culture - Final Urine,Voided Assessment and Plan Assessment: * 78-year-old female admitted for headaches and uncontrolled blood pressure for the last 1-1/2 months. Patient's MRI of the brain revealed a very small area of acute ischemic infarction in the left occipital region, likely from small vessel disease. Patient is clinically asymptomatic. * Cephalalgia, uncertain related to sinus disease, uncontrolled blood pressure, rule out temporal arteritis. * History of right cerebellar infarct 9 years ago. * Hypertension * X tobacco use. Plan: * Continue dual antiplatelet medications and statins. * Optimize control of blood pressure. * ESR 8 and CRP 7.0, both normal. This probably rules out temporal arteritis. * CTA of head and neck was negative for any stenosis, occlusion or aneurysm. * Try Fioricet as needed. * May follow-up with network development coordinator to rule out glaucoma or other ocular process. Patient denies any blurred vision however.
[2019-09-06] MEDS: TRIAMTERENE-HCTZ 37.5-25MG 1 EACH CAP PO SCH (14:48)
[2019-09-06] MEDS: CLOPIDOGREL 75 MG TAB PO SCH (20:18)
--- NOTE | 2019-09-06 21:28 | CT ---
EXAMINATION TYPE: CT chest wo con DATE OF EXAM: 09/06/2019 COMPARISON: None HISTORY: SOB, hypoxemia CT DLP: 334.9 mGycm Automated exposure control for dose reduction was used. Images obtained from the thoracic inlet to the diaphragm with no contrast. The lungs are clear of consolidation. There is no evidence of a pulmonary mass. There is some linear density right lung base consistent with scarring and atelectasis. There is small hiatal hernia. Heart size is normal. There are surgical clips at the gastroesophageal junction. There is no pericardial e ffusion. There is coronary artery calcification. There are no hilar masses. There is no mediastinal a denopathy. There is 4.2 cm aneurysm of the ascending aorta. Thoracic spine is intact. There is no compression fracture. There is mild upper thoracic levoscoliosi s. The sternum is intact. The ribs appear intact. IMPRESSION: Minimal scarring or subsegmental atelectasis right lung base. 4.2 cm aneurysm of the ascending aorta. No suspicious pulmonary density.
--- NOTE | 2019-09-06 23:25 | PN ---
PROGRESS NOTE This patient is a 78-year-old white female who was given Fioricet for migraines today, as she did not tolerate Tylenol 3 or Traver. Hopefully this will work. Her blood pressure medications will have to be readjusted prior to discharge tomorrow. Her blood pressure has been 130s to 150s over 60s to 70s. She is 94% on room air. Temperature 97.6, pulse 71. ASSESSMENT: 1. Ischemia of the brain; transient ischemic attack versus cerebrovascular accident. 2. Hypertension acceleration. 3. Severe anxiety. 4. Hypoxemia. 5. Hypertension. Once we get better control of her hypertension, possibly sent her home with medicine if she is better in the morning, as she was vomiting all day. Neurology recommendations. Continue on statins. Current blood pressure medications Plavix and aspirin. Possible discharge home in a.m. ERIKA / KT: [id number] /
[2019-09-07] MEDS: LEVOTHYROXINE 75 MCG TAB PO SCH (06:07)
[2019-09-07] MEDS: BUTALB/APAP/CAFF 50-325-40MG TAB PO PRN ×4 (06:08→22:38)
[2019-09-07] MEDS: TRIAMTERENE-HCTZ 37.5-25MG 1 EACH CAP PO SCH (08:37)
[2019-09-07] MEDS: ASPIRIN 81 MG PO SCH (08:38)
[2019-09-07] MEDS: CITALOPRAM HYDROBROMIDE 20 MG TAB PO SCH (08:38)
[2019-09-07] MEDS: FENOFIBRATE 160 MG TAB PO SCH (08:38)
[2019-09-07] MEDS: DILTIAZEM CD 240 MG CAP.ER.24H PO SCH (08:38)
[2019-09-07] MEDS: ATORVASTATIN 10 MG TAB PO SCH (08:38)
--- NOTE | 2019-09-07 10:58 | ECHOF ---
Referral Reason:cva MEASUREMENTS -------- HEIGHT: 165.1 cm WEIGHT: 75.3 kg BP: 155/77 RVIDd: 3.6 cm (< 3.3) IVSd: 1.4 cm (0.6 - 1.1) LVIDd: 4.0 cm (3.9 - 5.3) LVPWd: 1.4 cm (0.6 - 1.1) IVSs: 1.8 cm LVIDs: 2.3 cm LVPWs: 1.5 cm LAESV Index (A-L): 42.73 ml/m Ao Diam: 3.2 cm (2.0 - 3.7) AV Cusp: 2.0 cm (1.5 - 2.6) MV EXCURSION: 15.856 mm (> 18.000) MV EF SLOPE: 99 mm/s (70 - 150) EPSS: 1.6 cm MV E Bradly: 0.72 m/s MV DecT: 218 ms MV A Bradly: 0.85 m/s MV E/A Ratio: 0.85 AR PHT: 437 ms RAP: 5.00 mmHg RVSP: 34.35 mmHg FINDINGS -------- This was a technically adequate study. The left ventricular size is normal. There is moderate concentric left ventricular hypertrophy. O verall left ventricular systolic function is normal with, an EF between 55 - 60 %. The diastolic fi lling pattern is normal for the age of the patient 8.95. The right ventricle is mildly enlarged. LA is moderately dilated 34-39 ml/m2 The right atrium is mildly enlarged. Contrast study was performed with 2 iv injections of 8 ccs of agitated normal saline, at rest, and wi th cough. Interatrial and interventricular septum intact. Negative agitated saline study There is dixs-fw-kjiubvuo aortic regurgitation. There is no evidence of aortic stenosis. Mild mitral regurgitation is present. Mild tricuspid regurgitation present. There is borderline pulmonary artery hypertension. The righ t ventricular systolic pressure, as measured by Doppler, is 34.35mmHg. There is no pulmonic regurgitation present. The aortic root size is normal. IVC Not well visulized. There is no pericardial effusion. CONCLUSIONS -------- 1. The left ventricular size is normal. 2. There is moderate concentric left ventricular hypertrophy. 3. Overall left ventricular systolic function is normal with, an EF between 55 - 60 %. 4. The diastolic filling pattern is normal for the age of the patient 8.95 5. The right ventricle is mildly enlarged. 6. LA is moderately dilated 34-39 ml/m2 7. The right atrium is mildly enlarged. 8. Interatrial and interventricular septum intact. 9. Negative agitated saline study 10. There is cdrp-qc-juipzfxi aortic regurgitation. 11. Mild mitral regurgitation is present. 12. Mild tricuspid regurgitation present. 13. There is borderline pulmonary artery hypertension. 14. The right ventricular systolic pressure, as measured by Doppler, is 34.35mmHg. BUSINESS ASST: Ashley Akins RDCS
[2019-09-07 11:20] LABS: African American GFR (CKD) >90 (>60 ml/min/1.73 sqM); Anion Gap 8 mmol/L; Blood Urea Nitrogen 14 mg/dL (7-17); Calcium 9.4 mg/dL (8.4-10.2); Carbon Dioxide 28 mmol/L (22-30); Chloride 99 mmol/L (98-107); Glucose 86 mg/dL (74-99); Non-African American GFR(CKD) 85 (>60 ml/min/1.73 sqM); Potassium 3.6 mmol/L (3.5-5.1); Sodium 135 mmol/L (137-145)
--- NOTE | 2019-09-07 14:41 | P.PN ---
Subjective Progress Note Date: 09/07/19 Patient states headache is completely gone. Patient responded very well to Fioricet. Objective - Vital Signs Vital signs: Vital Signs Temp 97.5 F L 09/07/19 08:00 Pulse 72 09/07/19 12:00 Resp 18 09/07/19 12:00 BP 140/84 09/07/19 12:00 Pulse Ox 94 L 09/07/19 12:00 Intake & Output 09/06/19 09/07/19 09/07/19 18:59 06:59 18:59 Intake Total 240 100 200 Balance 240 100 200 Weight 74.9 kg Intake: Intake, IV Titration 100 Amount cefTRIAXone 1 gm In 100 Sodium Chloride 0.9% 50 ml @ 100 mls/hr IVPB Q24H [facility]END[facility] Rx#:[id number] Oral 240 200 Other: # Voids 1 2 1 - Exam Patient's mental status, speech and language functions are normal. Muscle strength is normal. Cranial nerves normal. Appears much more animated, pleasant. - Labs CBC & Chem 7: 09/05/19 06:20 09/07/19 10:46 Labs: Abnormal Lab Results - Last 24 Hours (Table) 09/07/19 Range/Units 10:46 Sodium 135 L (137-145) mmol/L Assessment and Plan Assessment: * 78-year-old female admitted for headaches and uncontrolled blood pressure for the last 1-1/2 months. Patient's MRI of the brain revealed a very small area of acute ischemic infarction in the left occipital region, likely from small vessel disease. Patient is clinically asymptomatic. * Cephalalgia, possible migraine, now resolved. * History of right cerebellar infarct 9 years ago. * Hypertension * X tobacco use. Plan: * Continue dual antiplatelet medications and statins. * Optimize control of blood pressure. * ESR 8 and CRP 7.0, both normal. This probably rules out temporal arteritis. * CTA of head and neck was negative for any stenosis, occlusion or aneurysm. * Patient's headache now has completely resolved with Fioricet. Clear for d ricki from neurology point. May give prescription of Fioricet to be taken as needed.
[2019-09-07] MEDS ORDERED: SODIUM CHLORIDE 0.9% 1,000 ML IV SCH (15:30)
--- NOTE | 2019-09-07 15:52 | P.PN ---
Subjective This is Pita Saunders PA-C dictating a progress note on this patient The patient was interviewed and examined by me as well as by Dr. Moody Case discussed with Dr. Moody and he agrees with the plan of care HPI/interval history Patient is a 78-year-old female with a history of hypertension, dyslipidemia, and prior CVA who presented with complaints of headache and elevated blood pressures. MRI revealed small left occipital lobe 5 mm area of acute to subacute ischemia. Yesterday we added Dyazide to her antihypertensive regimen and her blood pressure control has improved. Patient seen and examined sitting in bed. States her headaches have improved and she is feeling much better. No chest pain or shortness of breath. EXAMINATION Patient is afebrile, pulse in the 70s, respirations 18, blood pressure 140/84, oxygen saturation 94% on room air Patient seen and examined sitting in bed, in no acute distress Lungs clear to auscultation bilaterally Heart is regular, no audible murmurs REVIEW OF LABS, ECG Echocardiogram showed EF 55-60%, intra-atrial and intraventricular septum intact, mild to moderate AR Chest CT showed 4.2 cm ascending aortic aneurysm Potassium 3.6, BUN 14, creatinine 0.68 IMPRESSION / ASSESSMENT: #1 subacute intracranial ischemia, neurology following #2 hypertension, blood pressure has improved #3 dyslipidemia, well controlled on Crestor #4 previous CVA 9 years ago #5 headaches, improved, neurology following #6 ascending aortic aneurysm PLAN: Continue statins and antihypertensive regimen aspirin and Plavix per neurology Proceed with loop monitor implant to look for silent atrial fibrillation as a cause of her recurrent strokes Objective - Vital Signs Vital signs: Vital Signs Temp 97.5 F L 09/07/19 08:00 Pulse 72 09/07/19 12:00 Resp 18 09/07/19 12:00 BP 140/84 09/07/19 12:00 Pulse Ox 94 L 09/07/19 12:00 Intake & Output 09/06/19 09/07/19 09/07/19 18:59 06:59 18:59 Intake Total 240 100 200 Balance 240 100 200 Weight 74.9 kg Intake: Intake, IV Titration 100 Amount cefTRIAXone 1 gm In 100 Sodium Chloride 0.9% 50 ml @ 100 mls/hr IVPB Q24H WENDY Rx#:[id number] Oral 240 200 Other: # Voids 1 2 1 - Labs CBC & Chem 7: 07/21/20 06:20 09/07/19 10:46 Labs: Abnormal Lab Results - Last 24 Hours (Table) 09/07/19 Range/Units 10:46 Sodium 135 L (137-145) mmol/L
[2019-09-07] MEDS: SODIUM CHLORIDE 0.9% 1,000 ML IV SCH (16:05)
[2019-09-07] MEDS ORDERED: SODIUM CHLORIDE 0.9% 250 ML IV ONE (18:05)
[2019-09-07] MEDS ORDERED: MIDAZOLAM 2 MG/2 ML VIAL IV ONE (18:29)
[2019-09-07] MEDS ORDERED: LIDOCAINE 1% INJ 10MG/ML (20 ML MDV) SQ ONE (18:29)
--- NOTE | 2019-09-07 18:36 | P.PCN ---
Preoperative Diagnosis: Loop monitor implant Primary physicians: Dr. Garcia Intelligent Systems Engineer: Dr. Moody Indication: History of CVA, likely embolic Patient was brought to the EP lab in a fasting state. Written informed consent was obtained prior to the procedure. The left pectoral area was prepped and draped per protocol. Intravenous antibiotic was administered preoperatively. A subcutaneous Loop monitor was implanted successfully and the wound was closed per protocol. The device was programmed to detect significant brannon- arrhythmic and tachy-arrhythmic events, per protocol. Device and programming details: A. fib protocol Patient underwent EP procedure under conscious sedation/moderate sedation, monitoring of the level of consciousness and physiologic parameters including but not limited to vital signs and oxygenation. Patient tolerated the procedure well without any acute complications. Start time: 1827 Stop time:1834
[2019-09-07] MEDS: CLOPIDOGREL 75 MG TAB PO SCH (20:19)
--- NOTE | 2019-09-07 23:42 | PN ---
PROGRESS NOTE A 78-year-old white female whose migraine has greatly improved with Fioricet, but we are looking for a source for the stroke. She was supposed to have a SHANTE performed today and a loop monitor was placed to check for possible atrial fibrillation long-term for bradyarrhythmia or tachyarrhythmia. Possible discharge home tomorrow on Plavix, aspirin, and maybe increase statin dose and increase blood pressure doses. Migraines are better. Anxiety is better. Hypertension is better. Everything is better. Possible discharge home in the morning. MMODL / IJN: [id number] /
[2019-09-08] MEDS: LEVOTHYROXINE 75 MCG TAB PO SCH (06:41)
[2019-09-08] MEDS: ASPIRIN 81 MG PO SCH (08:31)
[2019-09-08] MEDS: ATORVASTATIN 10 MG TAB PO SCH (08:31)
[2019-09-08] MEDS: TRIAMTERENE-HCTZ 37.5-25MG 1 EACH CAP PO SCH (08:32)
[2019-09-08] MEDS: DILTIAZEM CD 240 MG CAP.ER.24H PO SCH (08:32)
[2019-09-08] MEDS: FENOFIBRATE 160 MG TAB PO SCH (08:32)
[2019-09-08] MEDS: CITALOPRAM HYDROBROMIDE 20 MG TAB PO SCH (08:32)
[2019-09-08] MEDS: BUTALB/APAP/CAFF 50-325-40MG TAB PO PRN (08:32)
[2019-09-08 12:03] VITALS: RESP 16
[2019-09-08 13:55] VITALS: PULSE 73; TEMP 98.4
[2019-09-08] MEDS: SODIUM CHLORIDE 0.9% 1,000 ML IV SCH (14:41)
[2019-09-08 14:42] VITALS: BP 132/79
--- NOTE | 2019-09-08 17:00 | P.PN ---
Subjective This is Pita Saunders PA-C dictating a progress note on this patient The patient was interviewed and examined by me as well as by Dr. Moody Case discussed with Dr. Moody and he agrees with the plan of care HPI/interval history Patient is a 78-year-old female with a history of hypertension, dyslipidemia, and prior CVA who presented with complaints of headache and elevated blood pressures. MRI revealed small left occipital lobe 5 mm area of acute to subacute ischemia. we added Dyazide to her antihypertensive regimen and her blood pressure control has improved. Yesterday she underwent implantation of a loop monitor to look for silent atrial fibrillation as a cause of her recurrent strokes. She is doing well postprocedure. Patient seen and examined sitting in the chair. States her headaches have improved. Denies chest pain or shortness of breath. EXAMINATION Patient is afebrile, pulse in the 70s, respirations 16, blood pressure 132/79, oxygen saturation 94% on room air Patient seen and examined sitting up in the chair in no acute distress Lungs clear to auscultation bilaterally Is regular, no audible murmurs REVIEW OF LABS, ECG Sodium 135, potassium 3.6, BUN 14, creatinine 0.68 Echocardiogram revealed EF 55-60%, negative bubble study IMPRESSION / ASSESSMENT: #1 subacute intracranial ischemia, neurology following #2 hypertension, blood pressure has improved #3 dyslipidemia, well controlled on Crestor #4 previous CVA 9 years ago #5 headaches, improved, neurology following #6 ascending aortic aneurysm PLAN: Continue current medication regimen From a cardiac standpoint she may be discharged home on her current antihypertensive regimen Outpatient follow-up for reevaluation of blood pressure Objective - Vital Signs Vital signs: Vital Signs Temp 98.4 F 09/08/19 12:00 Pulse 73 09/08/19 12:00 Resp 16 09/08/19 12:00 BP 132/79 09/08/19 14:30 Pulse Ox 94 L 09/08/19 12:00 Intake & Output 09/07/19 09/08/19 09/08/19 18:59 06:59 18:59 Intake Total 540 560 Balance 540 560 Weight 73.8 kg Intake: IV 100 Intake, IV Titration 200 Amount ceFAZolin 2 gm In Sodium 200 Chloride 0.9% 50 ml @ 100 mls/hr IVPB ONCE ONE Rx# :[id number] Oral 440 360 Other: # Voids 2 1 3 - Labs CBC & Chem 7: 09/05/19 06:20 09/07/19 10:46
--- NOTE | 2019-09-10 11:59 | CDI ---
Documentation Clarification Form Date: 09/10/19 From: Soheila Mcknight CCS Phone: If you have a question about this query, please contact Chayo Morales, Medical Technologist Chief at [phone] between 8am and 5pm. Admit Date: 09/05/19 Discharge Date: 09/08/19 Patient Name: Lynsey Hudson Visit Number: [id number] ATTENTION: The Clinical Documentation Specialists (CDI) and [facility] Coding Staff appreciate your assistance in clarifying documentation. Please respond to the clarification below the line at the bottom and electronically sign. The CDI & [facility] Coding staff will review the response and follow-up if needed. Please note: Queries are made part of the Legal Health Record. If you have any questions, please contact the author of this message via ITS. Dear Dr. Garcia, The patient presented with the following CVA. Uncontrolled/accelerated blood pressure is documented in the PNs, Consult, H&P. BP on 09/03: 175/75, 168/92, 167/87, 147/86 History/Risk Factors: CVA, Valve disease, Migraine Clinical Indicators: Uncontrolled/accelerated HTN Vital Signs: BP 172/75, RR 18, NC 79, O2 Sat 97 Treatment: Apresoline 10 mg IVP Q6HR PRN, Diazide 37.5 mg PO daily, Consults: Severiano In your professional opinion, can you please clarify uncontrolled/accelerated hypertension? Hypertensive urgency Hypertensive emergency Other, please specify Unable to determine MTDD
--- NOTE | 2019-09-11 07:31 | DS ---
DISCHARGE SUMMARY Please add to discharge dictation: Hypertensive urgency. MMODL / IJN: [id number] /
--- NOTE | 2019-09-11 12:26 | P.DS ---
Providers Date of admission: 09/05/19 10:31 Expected date of discharge: 09/08/19 Attending physician: Ottoniel Garcia Consults: 09/04/19 17:17 Consult Physician Routine Consulting Provider: Ora Witt Consult Reason/Comments: hypertension Do you want consulting provider notified?: Yes 09/04/19 17:18 Consult Physician Routine Consulting Provider: Emily Carty Consult Reason/Comments: hypertension Do you want consulting provider notified?: Yes Primary care physician: [facility] Course: Final Diagnoses: Cephalagia, possibly migraines, improved. MRI reported Small, 5 mm area acute to subacute ischemia left occipital lobe, remote areas of infarction, degenerative and diffuse nonspecific white matter changes most typical remote ischemia, in a patient with history of right cerebellar infarct 9 years ago. Status post loop monitor implantation. Patient to follow-up with her own neurologist outpatient within 2 weeks. Accelerated hypertension Nicotine dependence Dyslipidemia Ascending aortic aneurysm, 4.2 cm Hospital course: This is a 78-year-old female admitted with multiple medical issues including headaches, uncontrolled hypertension. Headaches improved on Fioricet. Blood pressure better controlled with current antihypertensive regimen. Evaluated by neurology, cardiology. Neuro workup completed. Maintained on dual antiplatelets and statin. Blood pressure optimized. Workup for recurrent strokes, including possible silent atrial fibrillation, status post loop monitor implantation. Tolerated procedure well. Significant clinical improvement. Cleared by both cardiology and neurology for discharge. Patient being discharged home today in stable condition with guarded prognosis. Patient has been advised to follow-up with own neurologist within the next 2 weeks as well as cardiology as advised. The impression and plan of care has been dictated as directed. : I performed a history and examination of this patient, discussed the same with the dictator. I agree with the dictator's note ,documented as a scribe. Any additional findings or plans will be noted. Patient Condition at Discharge: Stable Plan - Discharge Summary Discharge Rx Participant: No New Discharge Prescriptions: New Loratadine-Pseudoeph 5-120 mg [Claritin-D 12 Hour] 1 each PO Q12HR PRN tab.er.12h PRN Reason: Allergy Symptoms Triamterene-Hctz 37.5-25Mg [Dyazide 37.5-25 Capsule] 1 each PO DAILY #30 cap Butalb/APAP/Caff 50-325-40Mg [Fioricet 50-325-40] 1 each PO Q4HR PRN #18 tab PRN Reason: Headache Continue Clopidogrel [Plavix] 75 mg PO DAILY Levothyroxine Sodium [Synthroid] 75 mcg PO DAILY Citalopram Hydrobromide [CeleXA] 20 mg PO DAILY Fenofibrate 160 mg PO DAILY Diltiazem HCl [Diltiazem HCl 24Hr ER (LA)] 240 mg PO DAILY Aspirin EC [Ecotrin Low Dose] 81 mg PO DAILY Meclizine [Antivert] 25 mg PO DAILY PRN PRN Reason: Vertigo Rosuvastatin Calcium 5 mg PO DAILY Discontinued Chlorthalidone [Hygroton] 25 mg PO Q48H Discharge Medication List Clopidogrel [Plavix] 75 mg PO DAILY 09/04/15 [History] Levothyroxine Sodium [Synthroid] 75 mcg PO DAILY 09/04/15 [History] Citalopram Hydrobromide [CeleXA] 20 mg PO DAILY 09/02/17 [History] Diltiazem HCl [Diltiazem HCl 24Hr ER (LA)] 240 mg PO DAILY 09/02/17 [History] Fenofibrate 160 mg PO DAILY 09/02/17 [History] Aspirin EC [Ecotrin Low Dose] 81 mg PO DAILY 07/22/18 [History] Meclizine [Antivert] 25 mg PO DAILY PRN 09/04/19 [History] Rosuvastatin Calcium 5 mg PO DAILY 09/04/19 [History] Butalb/APAP/Caff 50-325-40Mg [Fioricet 50-325-40] 1 each PO Q4HR PRN #18 tab 09/08/19 [Rx] Loratadine-Pseudoeph 5-120 mg [Claritin-D 12 Hour] 1 each PO Q12HR PRN tab.er.12h 09/08/19 [Rx] Triamterene-Hctz 37.5-25Mg [Dyazide 37.5-25 Capsule] 1 each PO DAILY #30 cap 09/08/19 [Rx] Follow up Appointment(s)/Referral(s): Sarmad Moody MD [STAFF PHYSICIAN] - 2 Weeks (September 17, 10:00 sutures out September 21 9:45 ) Ottoniel Garcia MD [Primary Care Provider] - 1 Week (September 13 9:15) Patient Instructions/Handouts: Hypertension in the Older Adult (DC), Cardiac Loop Recorder Insertion (DC) Activity/Diet/Wound Care/Special Instructions: Follow-up with patient's own neurologist . heart healthy diet activity as tolerated Discharge Disposition: HOME SELF-CARE
== END 2019-09-08 14:38 | disposition home or self-care (01) | DRG 42 ==
LOC: 1SOBS 16:25 → OBSVTOIN 09-05 10:31 → 3SCARD 09-05 13:15
PROVIDERS: ADMIT Family Medicine; ATTEND Family Medicine
PROC: 0JH602Z Insertion of Monitoring Device into Chest Subcutaneous Tissue and Fascia, Open Approach (ICD-10-PCS; principal; 2019-09-07 13:35)
DX: I63.81 Other cerebral infarction due to occlusion or stenosis of small artery (principal); Z11.59 Encounter for screening for other viral diseases; G93.89 Other specified disorders of brain; I71.2 Thoracic aortic aneurysm, without rupture; I48.91 Unspecified atrial fibrillation; E03.9 Hypothyroidism, unspecified; I16.0 Hypertensive urgency; I10 Essential (primary) hypertension; G43.909 Migraine, unspecified, not intractable, without status migrainosus; E78.5 Hyperlipidemia, unspecified; I35.1 Nonrheumatic aortic (valve) insufficiency; M19.90 Unspecified osteoarthritis, unspecified site; F41.9 Anxiety disorder, unspecified; I69.398 Other sequelae of cerebral infarction; R09.02 Hypoxemia; J32.9 Chronic sinusitis, unspecified; Z79.02 Long term (current) use of antithrombotics/antiplatelets; Z79.82 Long term (current) use of aspirin; Z79.890 Hormone replacement therapy; Z79.899 Other long term (current) drug therapy; Z90.49 Acquired absence of other specified parts of digestive tract; Z98.51 Tubal ligation status; Z87.891 Personal history of nicotine dependence; Z88.8 Allergy status to other drugs, medicaments and biological substances; Z82.49 Family history of ischemic heart disease and other diseases of the circulatory system; Z80.0 Family history of malignant neoplasm of digestive organs; Z82.3 Family history of stroke; Z83.2 Family history of diseases of the blood and blood-forming organs and certain disorders involving the immune mechanism
CPT/HCPCS: 33285; 70496; 70498; 70553; 71250; 80048; 80053; 80061; 81001; 83036; 84484; 85025; 85652; 86140; 87086; 93306

== ENCOUNTER → 2020-05-01 | Outpatient (CLI) | payer MEDICARE ==
--- NOTE | 2020-05-01 08:09 | CT ---
EXAMINATION TYPE: CT brain wo con DATE OF EXAM: 05/01/2020 HISTORY: Headache, history of prior stroke. CT DLP: 1105.1 mGycm. Automated Exposure Control for Dose Reduction was Utilized. TECHNIQUE: CT scan of the head is performed without contrast. COMPARISON: CT brain September 02, 2017 and older studies. MRI brain September 05, 2019 FINDINGS: There is no acute intracranial hemorrhage or midline shift identified. There is mild-to- moderate diffuse ventricular and sulcal prominence consistent with diffuse cerebral atrophy. There i s severe low-attenuation in the periventricular white matter consistent with chronic small vessel isc hemic change redemonstrated. Prominent CSF in the right posterior fossa consistent with old infarct o r large arachnoid cyst is again seen. The globes are intact and the visualized sinuses remain clear. IMPRESSION: No acute intracranial hemorrhage or midline shift. There is mild to moderate diffuse ag e-related cerebral atrophy and advanced chronic small vessel ischemic change redemonstrated. No sign ificant interval change from most recent MRI. Right-sided posterior fossa findings unchanged consis tent with old infarct versus large arachnoid cyst. This is unchanged back through 2014 CT.
== END ==
LOC: RADCTMAIN 07:04
PROVIDERS: ATTEND Family Medicine
DX: I67.82 Cerebral ischemia (principal)
CPT/HCPCS: 70450

== ENCOUNTER 2020-10-20 13:22 | Inpatient (IN) | payer MEDICARE ==
[2020-10-20] MEDS ORDERED: SODIUM CHLORIDE 0.9% 500 ML 500 ML IV ONE (13:55)
[2020-10-20] MEDS ORDERED: SODIUM CHLORIDE 0.9% 1,000 ML IV ONE ×2 (13:55→15:01)
--- NOTE | 2020-10-20 13:59 | ED ---
General Adult HPI - General Chief complaint: Syncope Stated complaint: hypertension, nausea Time Seen by Provider: 10/20/20 13:40 Source: patient, RN notes reviewed, old records reviewed Mode of arrival: wheelchair Limitations: no limitations - History of Present Illness Initial comments: This is a 79-year-old female presents emergency Department with a past medical history significant for hypertension. Patient comes in today because she has had a five-day history of nausea vomiting and now she is just nauseated. Patient states she also has had diarrhea for about 4 days but that is subsided. Patient denies any pain. Patient denies any fever chills. Patient states she was on 120 mg of Cardizem and was recently changed to 240. Patient states her blood pressure was elevated earlier today so she took an extra 120 mg. Patient states she was lying in bed was nauseated thought she might have to vomit so she sat up quickly and then passed out and fell back onto the bed she states she was only out for a couple of seconds. Patient states she waited to her symptoms improved a little bit and drove herself to the emergency department. Patient states she has a very mild headache she denies any numbness weakness. Patient has any visual disturbance. Patient denies any chest pain palpitations difficulty breathing or shortness of breath per patient denies any abdominal pain. Patient states she remains nauseated - Related Data Home Medications Medication Instructions Recorded Confirmed Clopidogrel [Plavix] 75 mg PO DAILY 09/04/15 09/04/19 Levothyroxine Sodium [Synthroid] 75 mcg PO DAILY 09/04/15 09/04/19 Citalopram Hydrobromide [CeleXA] 20 mg PO DAILY 09/02/17 09/04/19 Diltiazem HCl [Diltiazem HCl 24Hr 240 mg PO DAILY 09/02/17 09/04/19 ER (LA)] Fenofibrate 160 mg PO DAILY 09/02/17 09/04/19 Aspirin EC [Ecotrin Low Dose] 81 mg PO DAILY 07/22/18 09/04/19 Meclizine [Antivert] 25 mg PO DAILY PRN 09/04/19 09/04/19 Rosuvastatin Calcium 5 mg PO DAILY 09/04/19 09/04/19 Previous Rx's Medication Instructions Recorded Butalb/APAP/Caff 50-325-40Mg 1 each PO Q4HR PRN #18 tab 07/24/20 [Fioricet 50-325-40] Loratadine-Pseudoeph 5-120 mg 1 each PO Q12HR PRN tab.er.12h 09/08/19 [Claritin-D 12 Hour] Triamterene-Hctz 37.5-25Mg 1 each PO DAILY #30 cap 09/08/19 [Dyazide 37.5-25 Capsule] Allergies Allergy/AdvReac Type Severity Reaction Status Date / Time losartan AdvReac shaking Verified 10/20/20 13:36 hands/headache Review of Systems ROS Statement: Those systems with pertinent positive or pertinent negative responses have been documented in the HPI. ROS Other: All systems not noted in ROS Statement are negative. Past Medical History Past Medical History: CVA/TIA, Hyperlipidemia, Hypertension, Osteoarthritis (OA), Thyroid Disorder Additional Past Medical History / Comment(s): EGD History of Any Multi-Drug Resistant Organisms: None Reported Past Surgical History: Cholecystectomy, Tubal Ligation Additional Past Surgical History / Comment(s): LEFT KNEE SURGERY Past Anesthesia/Blood Transfusion Reactions: Blood Transfusion Reaction, Motion Sickness Additional Past Anesthesia/Blood Transfusion Reaction / Comment(s): "'LOSS OF CO NSCIOUSNESS WITH A BLODD TRANSFUSION REACTION -CAN TAKE PLASMA SHOTS" PER PATIENT Past Psychological History: Anxiety Smoking Status: Former smoker Past Alcohol Use History: Rare Past Drug Use History: None Reported - Past Family History Mother Family Medical History: Blood Disorder, CVA/TIA, Hypertension, Myocardial Infarction (AR) Additional Family Medical History / Comment(s): MASSIVE AR Father Family Medical History: Cancer Additional Family Medical History / Comment(s): COLON CA General Exam - General Exam Comments Initial Comments: GENERAL: Patient is well-developed and well-nourished. Patient is nontoxic and well- hydrated and is in mild distress. ENT: Neck is soft and supple. No significant lymphadenopathy is noted. Oropharynx is clear. Moist mucous membranes. Neck has full range of motion without eliciting any pain. EYES: The sclera were anicteric and conjunctiva were pink and moist. Extraocular movements were intact and pupils were equal round and reactive to light. Eyelids were unremarkable. PULMONARY: Unlabored respirations. Good breath sounds bilaterally. No audible rales rhonchi or wheezing was noted. CARDIOVASCULAR: Patient is bradycardic at about 55 bpm ABDOMEN: Soft and nontender with normal bowel sounds. SKIN: Skin is clear with no lesions or rashes and otherwise unremarkable. NEUROLOGIC: Patient is alert and oriented x3. Cranial nerves II through XII are grossly intact. Motor and sensory are also intact. Normal speech, volume and content. Symmetrical smile. MUSCULOSKELETAL: Normal extremities with adequate strength and full range of motion. No lower extremity swelling or edema. No calf tenderness. LYMPHATICS: No significant lymphadenopathy is noted PSYCHIATRIC: Normal psychiatric evaluation. Limitations: no limitations Course Vital Signs 10/20/20 10/20/20 13:36 14:56 Temperature 98.2 F Pulse Rate 50 L Pulse Rate [ 54 L Sitting] Pulse Rate [ 52 L Standing] Pulse Rate [ 52 L Supine] Respiratory 18 Rate Blood Pressure 151/79 Blood Pressure 155/77 [Sitting] Blood Pressure 160/74 [Standing] Blood Pressure 140/76 [Supine] O2 Sat by Pulse 95 Oximetry Medical Decision Making - Medical Decision Making EKG shows sinus bradycardia 53 bpm CA interval 292 QRS is 90 QT interval 460 QTC is 431. Patient's EKG shows no ST segment elevation or depression. Chest x-ray shows no acute normalities. I went back into reevaluate the patient after she received a liter and half of fluid and she was complaining that her headache considerably worse at this point time I ordered a CAT scan. I spoke with Dr. Garcia he agreed to admit the patient admitted the patient wrote admitting orders. - Lab Data Result diagrams: 10/20/20 14:04 10/20/20 14:04 Lab Results 10/20/20 10/20/20 10/20/20 Range/Units 14:04 14:04 14:04 WBC 8.4 (3.8-10.6) k/uL RBC 4.14 (3.80-5.40) m/uL Hgb 12.1 (11.4-16.0) gm/dL Hct 36.0 (34.0-46.0) % MCV 87.0 (80.0-100.0) fL MCH 29.2 (25.0-35.0) pg MCHC 33.6 (31.0-37.0) g/dL RDW 15.2 (11.5-15.5) % Plt Count 238 (150-450) k/uL MPV 8.2 Neutrophils % 68 % Lymphocytes % 22 % Monocytes % 5 % Eosinophils % 2 % Basophils % 1 % Neutrophils # 5.7 (1.3-7.7) k/uL Lymphocytes # 1.8 (1.0-4.8) k/uL Monocytes # 0.4 (0-1.0) k/uL Eosinophils # 0.2 (0-0.7) k/uL Basophils # 0.1 (0-0.2) k/uL PT 10.5 (9.0-12.0) sec INR 1.0 (<1.2) APTT 26.5 (22.0-30.0) sec Sodium (137-145) mmol/L Potassium (3.5-5.1) mmol/L Chloride (98-107) mmol/L Carbon Dioxide (22-30) mmol/L Anion Gap mmol/L BUN (7-17) mg/dL Creatinine (0.52-1.04) mg/dL Est GFR (CKD-EPI)AfAm (>60 ml/min/1.73 sqM) Est GFR (CKD-EPI)NonAf (>60 ml/min/1.73 sqM) Glucose (74-99) mg/dL Calcium (8.4-10.2) mg/dL Magnesium (1.6-2.3) mg/dL Total Bilirubin (0.2-1.3) mg/dL AST (14-36) U/L ALT (4-34) U/L Alkaline Phosphatase (38-126) U/L Troponin I (0.000-0.034) ng/mL Total Protein (6.3-8.2) g/dL Albumin (3.5-5.0) g/dL Coronavirus (PCR) Not Detected (Not Detectd) 10/20/20 10/20/20 Range/Units 14:04 14:04 WBC (3.8-10.6) k/uL RBC (3.80-5.40) m/uL Hgb (11.4-16.0) gm/dL Hct (34.0-46.0) % MCV (80.0-100.0) fL MCH (25.0-35.0) pg MCHC (31.0-37.0) g/dL RDW (11.5-15.5) % Plt Count (150-450) k/uL MPV Neutrophils % % Lymphocytes % % Monocytes % % Eosinophils % % Basophils % % Neutrophils # (1.3-7.7) k/uL Lymphocytes # (1.0-4.8) k/uL Monocytes # (0-1.0) k/uL Eosinophils # (0-0.7) k/uL Basophils # (0-0.2) k/uL PT (9.0-12.0) sec INR (<1.2) APTT (22.0-30.0) sec Sodium 137 (137-145) mmol/L Potassium 4.1 (3.5-5.1) mmol/L Chloride 104 (98-107) mmol/L Carbon Dioxide 24 (22-30) mmol/L Anion Gap 9 mmol/L BUN 14 (7-17) mg/dL Creatinine 0.64 (0.52-1.04) mg/dL Est GFR (CKD-EPI)AfAm >90 (>60 ml/min/1.73 sqM) Est GFR (CKD-EPI)NonAf 86 (>60 ml/min/1.73 sqM) Glucose 99 (74-99) mg/dL Calcium 9.4 (8.4-10.2) mg/dL Magnesium 2.0 (1.6-2.3) mg/dL Total Bilirubin 0.7 (0.2-1.3) mg/dL AST 30 (14-36) U/L ALT 18 (4-34) U/L Alkaline Phosphatase 60 (38-126) U/L Troponin I <0.012 (0.000-0.034) ng/mL Total Protein 7.0 (6.3-8.2) g/dL Albumin 4.3 (3.5-5.0) g/dL Coronavirus (PCR) (Not Detectd) Disposition Clinical Impression: Syncope, Nausea and vomiting, Headache, Bradycardia Disposition: ADMITTED IP TO THIS [facility] Referrals: Ottoniel Garcia MD [Primary Care Provider] - 1-2 days Time of Disposition: 15:01
[2020-10-20] MEDS ORDERED: ONDANSETRON 4 MG/2 ML VIAL IVP STA (14:04)
[2020-10-20 14:17] LABS: Basophils # (A) 0.1 k/uL (0-0.2); Basophils % (A) 1 %; Eosinophils # (A) 0.2 k/uL (0-0.7); Eosinophils % (A) 2 %; HGB 12.1 gm/dL (11.4-16.0); Lymphocytes # (A) 1.8 k/uL (1.0-4.8); Lymphocytes % (A) 22 %; MCH 29.2 pg (25.0-35.0); MCHC 33.6 g/dL (31.0-37.0); Mean Platelet Volume 8.2; Monocytes # (A) 0.4 k/uL (0-1.0); Monocytes % (A) 5 %; Neutrophils # (A) 5.7 k/uL (1.3-7.7); Neutrophils % (A) 68 %; Platelet Count 238 k/uL (150-450); RBC 4.14 m/uL (3.80-5.40); RDW 15.2 % (11.5-15.5); WBC 8.4 k/uL (3.8-10.6)
[2020-10-20 14:26] LABS: ALT 18 U/L (4-34); AST 30 U/L (14-36); African American GFR (CKD) >90 (>60 ml/min/1.73 sqM); Albumin 4.3 g/dL (3.5-5.0); Alkaline Phosphatase 60 U/L (38-126); Anion Gap 9 mmol/L; Blood Urea Nitrogen 14 mg/dL (7-17); Calcium 9.4 mg/dL (8.4-10.2); Carbon Dioxide 24 mmol/L (22-30); Chloride 104 mmol/L (98-107); Glucose 99 mg/dL (74-99); Non-African American GFR(CKD) 86 (>60 ml/min/1.73 sqM); Potassium 4.1 mmol/L (3.5-5.1); Sodium 137 mmol/L (137-145); Total Bilirubin 0.7 mg/dL (0.2-1.3)
[2020-10-20] MEDS ORDERED: ACETAMINOPHEN TAB 500 MG TAB PO STA (14:43)
[2020-10-20 14:44] LABS: Partial Thromboplastin Time 26.5 sec (22.0-30.0); Prothrombin Time 10.5 sec (9.0-12.0)
--- NOTE | 2020-10-20 15:30 | XR ---
EXAMINATION TYPE: XR chest 2V DATE OF EXAM: 10/20/2020 COMPARISON: NONE HISTORY: Syncope TECHNIQUE: 2 views FINDINGS: Heart and mediastinum are normal. Lungs are clear of infiltrate. There is no heart failure. There are no hilar masses. Costophrenic angles are clear. Thoracic aorta is atheromatous. There are chest leads. IMPRESSION: No active cardiopulmonary disease. Normal heart.
--- NOTE | 2020-10-20 17:18 | CT ---
EXAMINATION TYPE: CT brain wo con DATE OF EXAM: 10/20/2020 COMPARISON: 05/01/2020 HISTORY: Headache, HTN CT DLP: 1099.4 mGycm Automated exposure control for dose reduction was used. There is cerebral cortical atrophy. There is no mass effect nor midline shift. There is no sign of in tracranial hemorrhage. There is large area of hypodensity right cerebellar hemisphere consistent with old infarct. There is patchy hypodensity in the periventricular white matter. There is 2 cm area of cortical hypodensity right posterior temporal lobe. Calvarium is intact. Skull base is intact there i s normal aeration of the mastoid sinuses. IMPRESSION: Old cortical infarcts involving right cerebellar hemisphere and the right posterior temporal lobe wit hout change. Chronic small vessel ischemia. No acute intracranial abnormality.
[2020-10-20] MEDS ORDERED: ALPRAZolam 0.25 MG TAB PO PRN (17:20)
[2020-10-20] MEDS: ACETAMINOPHEN TAB 325 MG TAB PO PRN (19:58)
[2020-10-20] MEDS: ONDANSETRON 4 MG/2 ML VIAL IVP PRN (19:59)
[2020-10-20] MEDS ORDERED: HYDROmorphone 1 MG/ML 1 ML SYRINGE IVP PRN (21:58)
[2020-10-21] MEDS: ACETAMINOPHEN TAB 325 MG TAB PO PRN ×4 (00:48→17:17)
[2020-10-21] MEDS: ONDANSETRON 4 MG/2 ML VIAL IVP PRN ×2 (06:06→10:44)
[2020-10-21] MEDS: DILTIAZEM CD 240 MG CAP.ER.24H PO SCH (08:39)
[2020-10-21] MEDS: CLOPIDOGREL 75 MG TAB PO SCH (08:39)
[2020-10-21] MEDS: ATORVASTATIN 40 MG TAB PO SCH (08:39)
[2020-10-21] MEDS: CITALOPRAM HYDROBROMIDE 20 MG TAB PO SCH (08:39)
[2020-10-21] MEDS: CYCLOBENZAPRINE 5 MG TAB PO PRN ×2 (09:38→15:38)
--- NOTE | 2020-10-21 11:16 | P.CRDCN ---
History of Present Illness Consult date: 10/21/20 Chief complaint: Abdominal discomfort History of present illness: This is a pleasant 79-year-old female patient with a past medical history signi ficant for hypertension and dyslipidemia and history of stroke who we consulted to see for further evaluation of bradycardia. The patient presented to the hospital with a one-week history of abdominal discomfort associated with nausea and also associated with diarrhea. No fever and no chills. No symptoms of chest pain or chest discomfort nor shortness of breath nor dizziness or lightheadedness or any presyncope or syncope. We consulted to see the patient mainly because of bradycardia. Reviewing the patient's chart revealed that the patient did have multiple episodes of sinus bradycardia with heart rate in the 50s and in the 40s but that was at midnight and after midnight. The patient was sleeping during these episodes. And the patient was asymptomatic from the cardiovascular standpoint of view, therefore she presented to the hospital. The EKG showed sinus rhythm. The troponin came in to be unremarkable. Overall the blood work came in to be unremarkable. Computed tomography scan of the brain was performed and showed only old infarct. The patient was seen by our service in 2019 when she underwent an echocardiogram and that showed normal left ventricular systolic function and also she underwent a loop recorder implantation by Dr. Moody. When she was examined this morning she has abdominal tenderness. Past Medical History Past Medical History: CVA/TIA, Hyperlipidemia, Hypertension, Osteoarthritis (OA), Thyroid Disorder Additional Past Medical History / Comment(s): EGD History of Any Multi-Drug Resistant Organisms: None Reported Past Surgical History: Cholecystectomy, Tubal Ligation Additional Past Surgical History / Comment(s): LEFT KNEE SURGERY Past Anesthesia/Blood Transfusion Reactions: Blood Transfusion Reaction, Motion Sickness Additional Past Anesthesia/Blood Transfusion Reaction / Comment(s): "'LOSS OF CONSCIOUSNESS WITH A BLODD TRANSFUSION REACTION -CAN TAKE PLASMA SHOTS" PER PATIENT Past Psychological History: Anxiety Smoking Status: Former smoker Past Alcohol Use History: Rare Additional Past Alcohol Use History / Comment(s): STARTED SMOKING AT AGE 15 QUIT AT AGE 54 SMOKED 1PPD Past Drug Use History: None Reported - Past Family History Mother Family Medical History: Blood Disorder, CVA/TIA, Hypertension, Myocardial Infarction ([place]) Additional Family Medical History / Comment(s): MASSIVE [place] Father Family Medical History: Cancer Additional Family Medical History / Comment(s): COLON CA Medications and Allergies Home Medications Medication Instructions Recorded Confirmed Type Clopidogrel [Plavix] 75 mg PO DAILY 09/04/15 10/20/20 History Levothyroxine Sodium [Synthroid] 75 mcg PO DAILY 09/04/15 10/20/20 History Citalopram Hydrobromide [CeleXA] 20 mg PO DAILY 09/02/17 10/20/20 History Diltiazem HCl [Diltiazem HCl 24Hr 240 mg PO DAILY 09/02/17 10/20/20 History ER ([place])] Fenofibrate 160 mg PO DAILY 09/02/17 10/20/20 History ALPRAZolam [Xanax] 0.25 mg PO DAILY PRN 10/20/20 10/20/20 History Atorvastatin Calcium [Lipitor] 40 mg PO DAILY 10/20/20 10/20/20 History Memantine [Namenda] 5 mg PO DAILY 10/20/20 10/20/20 History Metoprolol Succinate (ER) [Toprol 25 mg PO DAILY 10/20/20 10/20/20 History Xl] Valsartan [Diovan] 160 mg PO BID 10/20/20 10/20/20 History Vitamin E 400 unit PO DAILY 10/20/20 10/20/20 History Allergies Allergy/AdvReac Type Severity Reaction Status Date / Time losartan AdvReac shaking Verified 10/20/20 15:39 hands/headache Physical Exam Vitals: Vital Signs Temp Pulse Pulse Pulse Pulse Pulse Resp 10/21/20 08:00 98.1 F 68 18 10/21/20 03:45 98.0 F 61 16 10/20/20 23:58 98.0 F 62 16 10/20/20 20:00 97.9 F 60 20 10/20/20 17:10 16 10/20/20 16:30 48 L 20 10/20/20 16:00 57 L 22 10/20/20 15:57 98.2 F 51 L 16 10/20/20 15:30 46 L 22 10/20/20 15:00 51 L 20 10/20/20 14:56 54 L 52 L 52 L 10/20/20 14:30 49 L 18 10/20/20 13:36 98.2 F 50 L 18 BP BP BP BP BP Pulse Ox 10/21/20 08:00 134/86 95 10/21/20 03:45 157/79 97 10/20/20 23:58 139/67 96 10/20/20 20:00 180/88 99 10/20/20 17:10 10/20/20 16:30 151/51 95 10/20/20 16:00 145/70 93 L 10/20/20 15:57 155/71 98 10/20/20 15:30 162/73 96 10/20/20 15:00 146/81 96 10/20/20 14:56 155/77 160/74 140/76 10/20/20 14:30 160/74 96 10/20/20 13:36 151/79 95 Intake and Output 10/20/20 10/21/20 10/21/20 22:59 06:59 14:59 Intake Total 0 Balance 0 Intake: Oral 0 Other: Voiding Method Toilet Toilet # Voids 2 1 Weight 73.482 kg 71.4 kg - Constitutional General appearance: no acute distress - Respiratory Respiratory: bilateral: CTA - Cardiovascular Rhythm: regular Heart sounds: normal: S1, S2 Abnormal Heart Sounds: systolic murmur Results 10/20/20 14:04 10/20/20 14:04 Cardiac Enzymes 10/20/20 10/20/20 Range/Units 14:04 14:04 AST 30 (14-36) U/L Troponin I <0.012 (0.000-0.034) ng/mL Coagulation 10/20/20 Range/Units 14:04 PT 10.5 (9.0-12.0) sec APTT 26.5 (22.0-30.0) sec CBC 10/20/20 Range/Units 14:04 WBC 8.4 (3.8-10.6) k/uL RBC 4.14 (3.80-5.40) m/uL Hgb 12.1 (11.4-16.0) gm/dL Hct 36.0 (34.0-46.0) % Plt Count 238 (150-450) k/uL Comprehensive Metabolic Panel 10/20/20 Range/Units 14:04 Sodium 137 (137-145) mmol/L Potassium 4.1 (3.5-5.1) mmol/L Chloride 104 (98-107) mmol/L Carbon Dioxide 24 (22-30) mmol/L BUN 14 (7-17) mg/dL Creatinine 0.64 (0.52-1.04) mg/dL Glucose 99 (74-99) mg/dL Calcium 9.4 (8.4-10.2) mg/dL AST 30 (14-36) U/L ALT 18 (4-34) U/L Alkaline Phosphatase 60 (38-126) U/L Total Protein 7.0 (6.3-8.2) g/dL Albumin 4.3 (3.5-5.0) g/dL Current Medications Generic Name Dose Route Start Last Admin Trade Name Freq PRN Reason Stop Dose Admin Acetaminophen 650 mg 10/20/20 17:22 10/21/20 10:43 Acetaminophen Tab 325 Mg Tab PO 650 mg Q4HR PRN Administration Fever and/ or Mild Pain Alprazolam 0.25 mg 10/20/20 17:20 Alprazolam 0.25 Mg Tab PO DAILY PRN Anxiety Atorvastatin Calcium 40 mg 10/21/20 09:00 10/21/20 08:39 Atorvastatin 40 Mg Tab PO 40 mg DAILY WENDY Administration Citalopram Hydrobromide 20 mg 10/21/20 09:00 10/21/20 08:39 Citalopram Hydrobromide 20 Mg Tab PO 20 mg DAILY WENDY Administration Clopidogrel Bisulfate 75 mg 10/21/20 09:00 10/21/20 08:39 Clopidogrel 75 Mg Tab PO 75 mg DAILY WENDY Administration Cyclobenzaprine HCl 5 mg 10/21/20 09:26 10/21/20 09:38 Cyclobenzaprine 5 Mg Tab PO 5 mg Q6HR PRN Administration Muscle Pain Diltiazem HCl 240 mg 10/21/20 09:00 10/21/20 08:39 Diltiazem Cd 240 Mg Cap.Er.24h PO 240 mg DAILY WENDY Administration Hydromorphone HCl 1 mg 10/20/20 21:58 Hydromorphone 1 Mg/Ml 1 Ml Syringe IVP Q4HR PRN Pain Ondansetron HCl 4 mg 10/20/20 15:06 10/21/20 10:44 Ondansetron 4 Mg/2 Ml Vial IVP 4 mg Q6HR PRN Administration Nausea And Vomiting Intake and Output 10/20/20 10/21/20 10/21/20 22:59 06:59 14:59 Intake Total 0 Balance 0 Intake: Oral 0 Other: Voiding Method Toilet Toilet # Voids 2 1 Weight 73.482 kg 71.4 kg 10/20/20 14:04 10/20/20 14:04 Assessment and Plan Assessment: Assessment #1 abdominal discomfort associated with nausea and diarrhea #2 asymptomatic sinus bradycardia #3 hypertension #4 dyslipidemia Plan #1 no need for any cardiac workup at this point #2 consider adjusting the dose of beta vaishnavi if she becomes symptomatic from the bradycardia standpoint overview #3 work up on the abdominal discomfort to be done by the primary care team #4 follow-up with the patient on when necessary case
[2020-10-21] MEDS ORDERED: hydrALAZINE HCL 25 MG TAB PO STA (12:24)
--- NOTE | 2020-10-21 13:03 | HP ---
HISTORY AND PHYSICAL HISTORY OF PRESENT ILLNESS: 79-year-old white female who had 1 week presentation of abdominal pain, some nausea, vomiting and nausea with some diarrhea for the past 4 days, unclear etiology. Denies any fever or chills. 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 Her blood pressure went really high. Her blood pressure medicine was evaluated multiple times due to prior strokes. She is on Plavix and aspirin at home. She came to the hospital with uncontrolled headache, which apparently has gotten better with Flexeril that was ordered. History of neck issues with cervical disk disease. Denies any fever, chills or any stroke-like symptoms that she normally has with her strokes. MEDICATIONS: Home medicines: Plavix 75 daily, Synthroid 75 mcg daily, Cardizem 240 daily, Celexa 20 daily, fenofibrate 160 daily, aspirin 81 daily, meclizine 25 daily with Rosuvastatin 5 mg daily. ALLERGIES: LOSARTAN. REVIEW OF SYMPTOMS: 14-point review of systems otherwise negative. PAST MEDICAL HISTORY: CVA, TIA, dyslipidemia, hypertension, osteoarthritis, hypothyroidism, cholecystectomy, tubal ligation, left knee surgery, blood transfusion, motion sickness. FAMILY HISTORY: Father colon cancer. Mother with CVA, TIA, hypertension, myocardial infarction. PHYSICAL EXAMINATION: She appears anxious, nervous, rapid speech. CONSTITUTIONAL: She is alert and oriented. Well hydrated. HEENT within normal limits. Pupils equal, round, reactive. LUNGS: Clear. CARDIOVASCULAR S1, S2. ABDOMEN is mild tenderness to palpation. No guarding. Normal bowel sounds. SKIN no rash excoriation or bruises. NEUROLOGIC: Cranial nerves appear to be intact. MUSCULOSKELETAL: Range of motion full. PSYCH: Anxious, nervous. Pulse is in the 50s. VITAL SIGNS: Temp 98.2, blood pressure is 150s to 130s over 70 to 80. EKG sinus bradycardia. ASSESSMENT AND PLAN: 1. Unrelenting headache which is now better with Flexeril and hypertension control. 2. She has acute abdominal pain for which order a CT scan, possibly EGD will be needed. 3. Maintain blood pressure control. 4. Check stool for C diff. 5. Prognosis guarded. 6. Possibly rehydrate. MMODL / IJN: [id number] /
--- NOTE | 2020-10-21 13:56 | CT ---
EXAMINATION TYPE: CT abdomen pelvis wo con DATE OF EXAM: 10/21/2020 COMPARISON: None HISTORY: Generalized pain CT DLP: 646.6 mGycm Examination of the solid and hollow viscera is limited given the lack of contrast. FINDINGS: LUNG BASES: No evidence for nodule. Small patchy density right lower lobe may reflect developing infi ltrate or atelectasis. Fixed hiatal hernia noted. LIVER/GB: Cholecystectomy clips in place. No space-occupying hepatic lesion. Hepatic Courtney's lobe. PANCREAS: No pancreatic mass identified. No inflammatory process seen. SPLEEN: No evidence for splenomegaly. No intrasplenic lesions seen. ADRENALS: No adrenal nodules identified. No evidence for thickening. KIDNEYS: No evidence for renal mass. No nephrolithiasis. No hydronephrosis. BOWEL: Appendix has a normal appearance. No evidence of bowel obstruction. Mild wall thickening of th e ascending colon may reflect nonspecific colitis. Correlate clinically. Scattered colonic diverticul osis without diverticulitis. Lymph nodes: No evidence for adenopathy greater than 1 cm. Abdominal aorta: Atheromatous changes seen. No evidence for aneurysm. Genital organs: No significant abnormality. Other: No significant abnormality. IMPRESSION: 1.Mild wall thickening of the ascending colon may reflect nonspecific colitis. Correlate clinically. 2. Fixed hiatal hernia.
--- NOTE | 2020-10-21 19:16 | P.GSCN ---
History of Present Illness Consult date: 10/21/20 History of present illness: CHIEF COMPLAINT: Abdominal pain HISTORY OF PRESENT ILLNESS: The patient is a 79 year old female with hypertensive heart disease including coronary artery disease who was admitted for abdominal pain yesterday. She presents with 1 week history of nausea. She also had pre-existing diarrhea for 1 week. She had recent change in her medication for increased heart medication. Her surgical history is significant for cholecystectomy. General surgery is consulted for nausea and abdominal pain. She is trying to tolerate regular diet. She reports last colonoscopy 2 years and reports it was normal. She reports her abdominal pain is stable. PAST MEDICAL HISTORY: See list and reviewed PAST SURGICAL HISTORY: See list and reviewed MEDICATIONS: See list and reviewed ALLERGIES: See list and reviewed SOCIAL HISTORY: See list and reviewed FAMILY HISTORY: See list and reviewed REVIEW OF ORGAN SYSTEMS: CONSTITUTIONAL: No fevers or chills. EYES: Denies any trouble with vision. HEENT: No difficulties with hearing. No nosebleeds. RESPIRATORY: Denies pneumonia. Denies any troubles with breathing or dyspnea on exertion. Remote tobacco abuse disorder CARDIOVASCULAR: Past history of coronary artery disease including hypertensive heart disease. GASTROINTESTINAL: Has nausea including diarrhea GENITOURINARY: Denies any blood in urine or increased urinary frequency. NEUROLOGICAL: Denies any numbness or tingling along the distal extremities. No seizure disorders or headaches. Past history of transit ischemia attack MUSCULOSKELETAL: Denies any back pain, stiffness or joint arthritis. SKIN: No current skin cancer. No rash. PSYCHIATRIC: Denies current depression or suicidal thoughts. Has anxiety disorder. ENDOCRINE: Has hypothyroidism. Denies any blood sugar glucose intolerance. HEME/LYMPHATIC: Denies any lumps and bumps around the neck. No recent deep venous thrombosis. ALLERGY/IMMUNOLOGY: No immunoglobulin therapy. No immune deficiencies. BREAST: Denies current breast lumps, pain or nipple discharge. PHYSICAL EXAM: VITALS: Reviewed CONSTITUTIONAL: Well developed and in no acute distress. EYES: Conjuctivae without sclera icterus. Extraocular movements grossly intact. HEAD, EARS, NOSE, THROAT: Moist buccal mucosa. Head is atraumatic, normocephalic. Hears conversational speech. No nasal drainage. NECK: Supple. No JV distention. No thyroidomegaly. RESPIRATORY: Non-labored respirations and equal bilateral excursions. No gross wheezes. CARDIOVASCULAR: Regular rate and rhythm. Palpable 2+ radial pulses. ABDOMEN: No diffuse peritonitis. Minimal generalized abdominal pain. LYMPH: No neck lymphadenopathy. MUSCULOSKELETAL: No clubbing cyanosis or edema. SKIN: Warm and well perfused with good skin turgor. NEUROLOGIC: Cranial nerves II through XII grossly intact. Sensation upper and e xtremities intact. No focal or lateralizing signs. PSYCH: Appropriate affect. Alert and oriented to person, place and time. Displays appropriate insight. CLINCAL LABS: Reviewed. WBC normal 8.4. Electrolytes normal. IMAGING: Independently reviewed CT of the abdomen and pelvis without contrast demonstrates enlarged liver. Pandiverticulosis with moderate severe sigmoid diverticulosis without acute diverticulitis identified. Wall thickening of the proximal transverse colon including ascending colon. No free air. Diaphragmatic hiatal hernia identified. This is my independent interpretation. RADIOLOGY: Report reviewed of the CT of the abdomen and pelvis demonstrates additional ascending colon wall thickening. Also confirms recurrent hiatal hernia. RECORDS: previous old records reviewed from September 2015 with features of laparoscopic Haris fundoplasty performed as well as prior upper endoscopy in 2016 ASSESSMENT: 1. Abdominal pain 2. Diarrhea 3. Diverticulosis PLAN: 1. May benefit from upper endoscopy for generalized abdominal pain 2. May benefit from colonoscopy for colitis per CT scan. 3. Diet as tolerated. Thank you for this kind consultation. Past Medical History Past Medical History: CVA/TIA, Hyperlipidemia, Hypertension, Osteoarthritis (OA), Thyroid Disorder Additional Past Medical History / Comment(s): EGD History of Any Multi-Drug Resistant Organisms: None Reported Past Surgical History: Cholecystectomy, Tubal Ligation Additional Past Surgical History / Comment(s): LEFT KNEE SURGERY Past Anesthesia/Blood Transfusion Reactions: Blood Transfusion Reaction, Motion Sickness Additional Past Anesthesia/Blood Transfusion Reaction / Comm: "'LOSS OF CONSCIOUSNESS WITH A BLODD TRANSFUSION REACTION -CAN TAKE PLASMA SHOTS" PER PATIENT Past Psychological History: Anxiety Smoking Status: Former smoker Past Alcohol Use History: Rare Additional Past Alcohol Use History / Comment(s): STARTED SMOKING AT AGE 15 QUIT AT AGE 54 SMOKED 1PPD Past Drug Use History: None Reported - Past Family History Mother Family Medical History: Blood Disorder, CVA/TIA, Hypertension, Myocardial Infarc tion ([place]) Additional Family Medical History / Comment(s): MASSIVE [place] Father Family Medical History: Cancer Additional Family Medical History / Comment(s): COLON CA Medications and Allergies Home Medications Medication Instructions Recorded Confirmed Type Clopidogrel [Plavix] 75 mg PO DAILY 09/04/15 10/20/20 History Levothyroxine Sodium [Synthroid] 75 mcg PO DAILY 09/04/15 10/20/20 History Citalopram Hydrobromide [CeleXA] 20 mg PO DAILY 09/02/17 10/20/20 History Diltiazem HCl [Diltiazem HCl 24Hr 240 mg PO DAILY 09/02/17 10/20/20 History ER ([place])] Fenofibrate 160 mg PO DAILY 09/02/17 10/20/20 History ALPRAZolam [Xanax] 0.25 mg PO DAILY PRN 10/20/20 10/20/20 History Atorvastatin Calcium [Lipitor] 40 mg PO DAILY 10/20/20 10/20/20 History Memantine [Namenda] 5 mg PO DAILY 10/20/20 10/20/20 History Metoprolol Succinate (ER) [Toprol 25 mg PO DAILY 10/20/20 10/20/20 History Xl] Valsartan [Diovan] 160 mg PO BID 10/20/20 10/20/20 History Vitamin E 400 unit PO DAILY 10/20/20 10/20/20 History Allergies Allergy/AdvReac Type Severity Reaction Status Date / Time losartan AdvReac shaking Verified 10/20/20 15:39 hands/headache Surgical - Exam Vital Signs Temp Pulse Resp BP Pulse Ox 98.2 F 50 L 18 151/79 95 10/20/20 13:36 10/20/20 13:36 10/20/20 13:36 10/20/20 13:36 10/20/20 13:36 Results - Labs 10/20/20 14:04 10/20/20 14:04 Assessment and Plan (1) Abnormal CT of the abdomen Current Visit: Yes Status: Acute Code(s): R93.5 - ABN FINDINGS ON DX IMAGING OF ABD REGIONS, INC RETROPERITON SNOMED Code(s): 76651161624164730 (2) Colitis Current Visit: Yes Status: Acute Code(s): K52.9 - NONINFECTIVE GASTROENTERITIS AND COLITIS, UNSPECIFIED SNOMED Code(s): 08364036 (3) Diverticulosis Current Visit: Yes Status: Acute Code(s): K57.90 - DVRTCLOS OF INTEST, PART UNSP, W/O PERF OR ABSCESS W/O BLEED SNOMED Code(s): 544033377 (4) Hiatal hernia Current Visit: Yes Status: Acute Code(s): K44.9 - DIAPHRAGMATIC HERNIA WITHOUT OBSTRUCTION OR GANGRENE SNOMED Code(s): 55602023
[2020-10-21] MEDS: hydrALAZINE HCL 50 MG TAB PO SCH (19:52)
[2020-10-21] MEDS ORDERED: hydrALAZINE HCL 25 MG TAB PO SCH (21:00)
[2020-10-22] MEDS: CYCLOBENZAPRINE 5 MG TAB PO PRN ×2 (02:38→18:37)
[2020-10-22] MEDS: ACETAMINOPHEN TAB 325 MG TAB PO PRN ×5 (02:38→18:25)
[2020-10-22] MEDS: CITALOPRAM HYDROBROMIDE 20 MG TAB PO SCH (09:10)
[2020-10-22] MEDS: hydrALAZINE HCL 50 MG TAB PO SCH ×2 (09:10→19:24)
[2020-10-22] MEDS: ATORVASTATIN 40 MG TAB PO SCH (09:10)
[2020-10-22] MEDS: DILTIAZEM CD 240 MG CAP.ER.24H PO SCH (09:10)
[2020-10-22] MEDS: CLOPIDOGREL 75 MG TAB PO SCH (09:11)
--- NOTE | 2020-10-22 14:17 | P.PN ---
Subjective Progress Note Date: 10/22/20 CHIEF COMPLAINT: Abdominal pain HISTORY OF PRESENT ILLNESS: he patient is a 79 year old female with hypertensive heart disease including coronary artery disease who was admitted for abdominal pain. Patient had been having nausea and vomiting with diarrhea for about 1 week. She is no longer having any emesis. Diarrhea has shown improvement. Her computed tomography scan of the abdomen had shown mild wall thickening of the ascending colon correlate for colitis and a fixed hiatal hernia. She is tole rating a regular diet. She is complaining mostly of headache and elevated blood pressure. She reports that her abdominal pain is improving. She is taking Plavix. Afebrile. BP 176/73 No new labs PHYSICAL EXAM: VITAL SIGNS: Reviewed. GENERAL: Well-developed in no acute distress. HEENT: No sclera icterus. Extraocular movements grossly intact. Moist buccal mucosa. Head is atraumatic, normocephalic. ABDOMEN: Soft. Nondistended. Nontender. NEUROLOGIC: Alert and oriented. Cranial nerves II through XII grossly intact. ASSESSMENT: 1. Abdominal pain with nausea vomiting and diarrhea 2. Mild wall thickening of the ascending colon may reflect noncystic colitis noted on CAT scan 3. Fixed hiatal hernia 4. Diverticulosis PLAN: -No surgical intervention planned during this admission -Plan for EGD and colonoscopy outpatient with Dr. mckeon -Patient will need to be off of her Plavix for 5 days prior to EGD and colonoscopy Physician Business Continuity Coordinator note has been reviewed by physician. Signing provider agrees with the documented findings, assessment, and plan of care. Objective - Vital Signs Vital signs: Vital Signs Temp 98.6 F 10/22/20 08:00 Pulse 64 10/22/20 13:55 Resp 16 10/22/20 13:55 BP 176/73 10/22/20 12:00 Pulse Ox 94 L 10/22/20 12:00 Intake & Output 10/21/20 10/22/20 10/22/20 18:59 06:59 18:59 Intake Total 120 240 480 Balance 120 240 480 Weight 71.2 kg Intake: Oral 120 240 480 Other: Voiding Method Toilet Toilet # Voids 1 - Labs CBC & Chem 7: 10/20/20 14:04 10/20/20 14:04
[2020-10-22] MEDS: ONDANSETRON 4 MG/2 ML VIAL IVP PRN (18:30)
[2020-10-22] MEDS ORDERED: traMADol 50 MG TAB PO PRN (19:50)
[2020-10-22] MEDS: amLODIPine 5 MG TAB PO SCH (20:04)
[2020-10-22] MEDS ORDERED: diphenhydrAMINE 50 MG/ML 1 ML VIAL IVP STA (22:22)
[2020-10-22] MEDS ORDERED: ONDANSETRON 4 MG/2 ML VIAL IVP STA (22:22)
[2020-10-22] MEDS ORDERED: KETOROLAC 15 MG/ML 1 ML VIAL IVP STA (22:22)
[2020-10-23] MEDS: ACETAMINOPHEN TAB 325 MG TAB PO PRN ×2 (03:17→10:01)
--- NOTE | 2020-10-23 05:54 | PN ---
PROGRESS NOTE 79-year-old white female with syncope, bradycardia, dehydration, migraine of severe nature and hypertension acceleration. Hydralazine has been increased to 50 t.i.d. Amlodipine 5 mg daily has been added for hypertension. Migraines being treated with migraine cocktail at this time, as Flexeril helped in the past but not lately. Continue current treatment. Follow up in next 24 to 48 hours. Control hypertension. Get neurology consult for persistent migraine. Get a migraine cocktail. MMODL / IJN: [id number] /
[2020-10-23] MEDS: CITALOPRAM HYDROBROMIDE 20 MG TAB PO SCH (10:00)
[2020-10-23] MEDS: ATORVASTATIN 40 MG TAB PO SCH (10:00)
[2020-10-23] MEDS: ONDANSETRON 4 MG/2 ML VIAL IVP PRN (10:00)
[2020-10-23] MEDS: DILTIAZEM CD 240 MG CAP.ER.24H PO SCH (10:01)
[2020-10-23] MEDS: hydrALAZINE HCL 50 MG TAB PO SCH ×2 (10:01→21:41)
[2020-10-23] MEDS: amLODIPine 5 MG TAB PO SCH (10:01)
[2020-10-23] MEDS: SODIUM CHLORIDE 0.9% 1,000 ML IV SCH (10:02)
[2020-10-23] MEDS: CLOPIDOGREL 75 MG TAB PO SCH ×2 (10:09→14:25)
[2020-10-23 11:03] LABS: HCT 35.5 % (34.0-46.0); HGB 11.9 gm/dL (11.4-16.0); MCH 29.4 pg (25.0-35.0); MCHC 33.6 g/dL (31.0-37.0); MCV 87.5 fL (80.0-100.0); Mean Platelet Volume 8.7; Platelet Count 240 k/uL (150-450); RBC 4.06 m/uL (3.80-5.40); RDW 14.9 % (11.5-15.5); WBC 11.2 k/uL (3.8-10.6)
[2020-10-23 11:05] LABS: ALT 19 U/L (4-34); AST 29 U/L (14-36); African American GFR (CKD) >90 (>60 ml/min/1.73 sqM); Albumin 3.8 g/dL (3.5-5.0); Alkaline Phosphatase 62 U/L (38-126); Anion Gap 10 mmol/L; Blood Urea Nitrogen 14 mg/dL (7-17); Calcium 9.2 mg/dL (8.4-10.2); Carbon Dioxide 24 mmol/L (22-30); Chloride 102 mmol/L (98-107); Glucose 106 mg/dL (74-99); Non-African American GFR(CKD) 83 (>60 ml/min/1.73 sqM); Potassium 3.4 mmol/L (3.5-5.1); Sodium 136 mmol/L (137-145); Total Bilirubin 0.5 mg/dL (0.2-1.3); Total Protein 6.4 g/dL (6.3-8.2)
[2020-10-23] MEDS: PANTOPRAZOLE 40 MG/10 ML VIAL IVP SCH (13:21)
[2020-10-23] MEDS ORDERED: POTASSIUM CHLORIDE ER 20 MEQ TAB.ER PO STA (14:18)
--- NOTE | 2020-10-23 14:21 | P.PN ---
Subjective Progress Note Date: 10/23/20 CHIEF COMPLAINT: Abdominal pain HISTORY OF PRESENT ILLNESS: The patient is a 79 year old female with hype rtensive heart disease including coronary artery disease who was admitted for abdominal pain. Patient had been having nausea and vomiting with diarrhea for about 1 week. Patient complaining of more abdominal pain today. It's diffuse nonspecific pain. She's also complaining of headache and shaking in her arms and legs. She reports a decreased appetite. She is having dry heaves no actual emesis. She was able to have a more formed small bowel movement yesterday. Her diarrhea has resolved. Patient being seen by neurology for her headache. Afebrile. WBC 11.2 hemoglobin 11.9 platelets 240 sodium is 136 potassium is 3.4 Patient seen and examined with Dr. mckeon PHYSICAL EXAM: VITAL SIGNS: Reviewed. GENERAL: Well-developed in no acute distress. HEENT: No sclera icterus. Extraocular movements grossly intact. Moist buccal mucosa. Head is atraumatic, normocephalic. ABDOMEN: Soft. Nondistended. Diffuse tenderness NEUROLOGIC: Alert and oriented. Cranial nerves II through XII grossly intact. ASSESSMENT: 1. Abdominal pain with nausea vomiting and diarrhea 2. Mild wall thickening of the ascending colon may reflect noncystic colitis noted on CAT scan 3. Fixed hiatal hernia 4. Diverticulosis PLAN: -Add IV Protonix -Resume IV fluids at normal saline at 50 mL an hour for gentle hydration -Continue antiemetics -No surgical intervention planned during this admission -Plan for EGD and colonoscopy outpatient with Dr. Mckeon -Patient will need to be off of her Plavix for 5 days prior to EGD and colonoscopy -Downgrade diet to full liquids -Patient can remain on her Plavix at this time -Continue neurological and medical workup Physician Calculation Clerk note has been reviewed by physician. Signing provider agrees with the documented findings, assessment, and plan of care. Objective - Vital Signs Vital signs: Vital Signs Temp 97.2 F L 10/23/20 12:00 Pulse 72 10/23/20 12:00 Resp 22 10/23/20 12:00 BP 121/60 10/23/20 12:00 Pulse Ox 96 10/23/20 12:00 Intake & Output 10/22/20 10/23/20 10/23/20 18:59 06:59 18:59 Intake Total 720 Balance 720 Weight 71 kg Intake: Oral 720 Other: Voiding Method Toilet Toilet # Voids 1 - Labs CBC & Chem 7: 10/23/20 10:18 10/23/20 10:18 Labs: Abnormal Lab Results - Last 24 Hours (Table) 10/23/20 10/23/20 Range/Units 10:18 10:18 WBC 11.2 H (3.8-10.6) k/uL Sodium 136 L (137-145) mmol/L Potassium 3.4 L (3.5-5.1) mmol/L Glucose 106 H (74-99) mg/dL
[2020-10-23] MEDS: BUTALB/APAP/CAFF 50-325-40MG TAB PO PRN ×2 (14:25→21:44)
--- NOTE | 2020-10-23 16:41 | P.CNNES ---
History of Present Illness Consult date: 10/23/20 Requesting physician: Ottoniel Garcia Reason for Consult: Migraine History of Present Illness: Patient is a 79-year-old female came to the hospital on 10/20/2020 at 1:22 PM for 5 day history of nausea, vomiting and diarrhea of 4 days duration. No fever or chills. Neurology is consulted for migraines. Patient states that about 7-8 weeks ago, she fell at work. There were buckets of water on the floor, and she tripped over the buckets, fell and banged her head. She did not pass out, did not have any syncope. Since then it messed up her neck and the back. She has been having headaches since the fall. Headache occurs off and on. She also has been having nausea and vomiting, dry heaving, throwing up for the last 6 days. She states she has not eaten anything for last 4-5 days. She feels very shaky although she is not feeling cold. No fever or chills. Patient states that she was taking aspirin, which stops the headache for 1 hour but then it comes back. She denies any previous history of migraines. Patient's vitals on arrival was blood pressure 160/74, pulse rate 49 and temperature 98.2. Patient had orthostatics checked, in which her supine blood pressure was 140/76, pulse rate 52, sitting up was 155/77 and pulse of 54. Standing up was 160/74 with pulse of 52. Orthostatics negative. CT head showed old cortical infarcts involving the right cerebellar hemisphere and the right posterior temporal lobe without change. Chronic small vessel ischemia. No acute process. CT of abdomen and pelvis showed mild wall thickening of the ascending colon may reflect nonspecific colitis. Correlate clinically. Fixed hiatal hernia. Chest x-ray showed no active cardiopulmonary disease. Normal heart. Patient's blood tests shows normal CBC, PT/PTT, normal chem 20. Troponin is negative. Anand virus PCR negative. Her last hemoglobin A1c 5.8 on 09/04/2019. Cholesterol 110, LDL 36. Patient has been seen by myself on 09/05/2019 for headaches and uncontrolled hypertension. Patient has presented with 1-1/2 month history of headaches and uncontrolled hypertension. MRI of the brain at that time revealed small area of acute ischemic infarction in the left occipital region, likely from small vessel disease. Patient's headache at that time responded very well to Fioricet. Her ESR was 8, CRP 7.0, both normal. CTA of head and neck was negative for any stenosis, or occlusion or aneurysm. Patient has smoked half to 1 pack per day for 30 years, quit 30 years ago. Review of Systems Patient denies any double vision, loss of vision. No hoarseness or sore throat. Patient complains of abdominal pain, which she rates 8/10, headaches 6/10. Patient is complaining of stomach hurting. She feels very shaky. Denies any fever. No rash. Patient has arthritis. History of left knee surgery. Past Medical History Past Medical History: CVA/TIA, Hyperlipidemia, Hypertension, Osteoarthritis (OA), Thyroid Disorder Additional Past Medical History / Comment(s): EGD History of Any Multi-Drug Resistant Organisms: None Reported Past Surgical History: Cholecystectomy, Tubal Ligation Additional Past Surgical History / Comment(s): LEFT KNEE SURGERY Past Anesthesia/Blood Transfusion Reactions: Blood Transfusion Reaction, Motion Sickness Additional Past Anesthesia/Blood Transfusion Reaction / Comment(s): "'LOSS OF CONSCIOUSNESS WITH A BLODD TRANSFUSION REACTION -CAN TAKE PLASMA SHOTS" PER PATIENT Past Psychological History: Anxiety Smoking Status: Former smoker Past Alcohol Use History: Rare Additional Past Alcohol Use History / Comment(s): STARTED SMOKING AT AGE 15 QUIT AT AGE 54 SMOKED 1PPD Past Drug Use History: None Reported - Past Family History Mother Family Medical History: Blood Disorder, CVA/TIA, Hypertension, Myocardial Infarction ([place]) Additional Family Medical History / Comment(s): MASSIVE [place] Father Family Medical History: Cancer Additional Family Medical History / Comment(s): COLON [place] Medications and Allergies Home Medications Medication Instructions Recorded Confirmed Type Clopidogrel [Plavix] 75 mg PO DAILY 09/04/15 10/20/20 History Levothyroxine Sodium [Synthroid] 75 mcg PO DAILY 09/04/15 10/20/20 History Citalopram Hydrobromide [CeleXA] 20 mg PO DAILY 09/02/17 10/20/20 History Diltiazem HCl [Diltiazem HCl 24Hr 240 mg PO DAILY 09/02/17 10/20/20 History ER ([place])] Fenofibrate 160 mg PO DAILY 09/02/17 10/20/20 History ALPRAZolam [Xanax] 0.25 mg PO DAILY PRN 10/20/20 10/20/20 History Atorvastatin Calcium [Lipitor] 40 mg PO DAILY 10/20/20 10/20/20 History Memantine [Namenda] 5 mg PO DAILY 10/20/20 10/20/20 History Metoprolol Succinate (ER) [Toprol 25 mg PO DAILY 10/20/20 10/20/20 History Xl] Valsartan [Diovan] 160 mg PO BID 10/20/20 10/20/20 History Vitamin E 400 unit PO DAILY 10/20/20 10/20/20 History Allergies Allergy/AdvReac Type Severity Reaction Status Date / Time losartan AdvReac shaking Verified 10/20/20 15:39 hands/headache Physical Examination - Vital Signs Vital Signs: Vital Signs Temp Pulse Resp BP Pulse Ox 10/23/20 03:15 98 F 60 18 136/69 95 10/22/20 22:55 97.6 F 70 18 168/75 94 L 10/22/20 20:00 140/66 10/22/20 19:20 69 19 170/81 97 10/22/20 16:00 98.3 F 63 16 150/69 96 10/22/20 13:55 64 16 10/22/20 12:00 64 16 176/73 94 L Intake and Output 10/22/20 10/23/20 10/23/20 22:59 06:59 14:59 Intake Total 240 Balance 240 Intake: Oral 240 Other: Voiding Method Toilet Toilet # Voids 1 1 Weight 71 kg Patient is an elderly female, who appears to be sick from nausea, and has a bucket in front of her, although there is no vomitus in. Patient is alert awake oriented to time place and person. Speech and language functions are normal. Attention, concentration and fund of knowledge is adequate. Patient appears slightly anxious. On cranial examination, pupils are equal, round and reacting to light, , no ptosis. Her visual burr are full on confrontation with no neglect on double simultaneous stimulation, extraocular muscles are intact with no nystagmus. Face is symmetric, tongue protrudes to the midline. Palatal elevation and sensation normal, hearing and shoulder shrug normal, facial sensation normal. Shoulder shrug normal. On muscle strength testing, there is no pronator drift and the strength is normal in arms and legs distally and proximally. Deep tendon reflexes ar3 in the upper limbs at biceps and brachioradialis, 2+ in the lower limbs at knees and ankles and plantars downgoing. No clonus. Sensory to touch is equal with no neglect. Cerebellar function showed significant tremulousness in the upper extremity for [id number] testing. Mild ataxia for [id number] on the left, but not on the leg. no ataxia for [id number] testing. No dysdiadochokinesia. Tone and bulk of muscles normal. GaDeferred. On general examination, there is no carotid bruit, mild systolic murmur, S1-S2 audible. Abdomen is soft. Chest is clear. Peripheral pulses are present. No edema. Results - Laboratory Findings CBC and BMP: 10/23/20 10:18 10/23/20 10:18 Assessment and Plan Assessment: * Cephalalgia, since minor closed head injury. Patient has history of similar headaches in the past with previous admission in August 2019, which resolved with Fioricet. Suspect tension headache, possible secondary migraine. Patient's uncontrolled hypertension may be contributing. * Hypertension, not well controlled * History of CVA * Hyperlipidemia * Abdominal pain, nausea vomiting. Surgery on board. Possible colitis. Plan: * Trial of Fioricet as needed for migraines. * Continue antiemetics with Zofran. * Continue her dual antiplatelet medication. Patient also on Lipitor 40 mg. * Continue Protonix 40 mg daily for gastric ulcer prophylaxis. * Optimize control of blood pressure, as uncontrolled blood pressure may be contributing to the headache. * We will follow clinically.
--- NOTE | 2020-10-24 05:00 | PN ---
PROGRESS NOTE 79-year-old female with 5-day history of nausea, vomiting. She came today for worsening abdominal pain, worsening migraines and headaches despite normal blood pressure. She is requesting an MRI of her head before she goes home. CT of the head was negative. Cardiovascular S1-S2. Lungs clear. GI soft. Vital signs stable. Cranial nerves are intact. ASSESSMENT: 1. Cephalgia. 2. Minor closed head injury. 3. Has had similar headaches in the past, resolved with Fioricet, suspect tension headache secondary to migraine. 4. Uncontrolled hypertension which is now well controlled. 5. History of cerebrovascular accident. 6. Dyslipidemia. 7. Colitis. Trial Fioricet, Zofran, consider Lipitor, Plavix and aspirin for prior strokes. Prognosis guarded. MMODL / IJN: [id number] /
[2020-10-24] MEDS: SODIUM CHLORIDE 0.9% 1,000 ML IV SCH (06:19)
[2020-10-24] MEDS: BUTALB/APAP/CAFF 50-325-40MG TAB PO PRN ×2 (09:09→17:27)
[2020-10-24] MEDS: ATORVASTATIN 40 MG TAB PO SCH (09:10)
[2020-10-24] MEDS: CLOPIDOGREL 75 MG TAB PO SCH (09:10)
[2020-10-24] MEDS: CITALOPRAM HYDROBROMIDE 20 MG TAB PO SCH (09:10)
[2020-10-24] MEDS: hydrALAZINE HCL 50 MG TAB PO SCH (09:10)
[2020-10-24] MEDS: DILTIAZEM CD 240 MG CAP.ER.24H PO SCH (09:10)
[2020-10-24] MEDS: amLODIPine 5 MG TAB PO SCH (09:11)
[2020-10-24] MEDS: PANTOPRAZOLE 40 MG/10 ML VIAL IVP SCH (09:11)
[2020-10-24 11:21] LABS: Basophils % (A) 0 %; Eosinophils # (A) 0.1 k/uL (0-0.7); Eosinophils % (A) 1 %; HCT 34.7 % (34.0-46.0); HGB 11.4 gm/dL (11.4-16.0); Lymphocytes # (A) 1.7 k/uL (1.0-4.8); Lymphocytes % (A) 16 %; MCH 29.2 pg (25.0-35.0); MCHC 32.9 g/dL (31.0-37.0); MCV 88.7 fL (80.0-100.0); Monocytes # (A) 0.5 k/uL (0-1.0); Monocytes % (A) 5 %; Neutrophils # (A) 7.8 k/uL (1.3-7.7); Neutrophils % (A) 77 %; Platelet Count 218 k/uL (150-450); RBC 3.92 m/uL (3.80-5.40); RDW 15.1 % (11.5-15.5); WBC 10.2 k/uL (3.8-10.6)
[2020-10-24 11:41] LABS: African American GFR (CKD) >90 (>60 ml/min/1.73 sqM); Anion Gap 8 mmol/L; Blood Urea Nitrogen 18 mg/dL (7-17); Calcium 8.8 mg/dL (8.4-10.2); Carbon Dioxide 23 mmol/L (22-30); Chloride 106 mmol/L (98-107); Glucose 138 mg/dL (74-99); Non-African American GFR(CKD) 84 (>60 ml/min/1.73 sqM); Potassium 3.1 mmol/L (3.5-5.1); Sodium 137 mmol/L (137-145)
[2020-10-24] MEDS ORDERED: POTASSIUM CHLORIDE ER 20 MEQ TAB.ER PO STA (14:37)
--- NOTE | 2020-10-24 14:37 | P.PN ---
Subjective Progress Note Date: 10/24/20 CHIEF COMPLAINT: Abdominal pain HISTORY OF PRESENT ILLNESS: The patient is a 79 year old female with hype rtensive heart disease including coronary artery disease who was admitted for abdominal pain. Patient had been having nausea and vomiting with diarrhea for about 1 week. Patient reports that she is feeling much better today. Neurology gave her Fioricet for her headache. She reports that her headache has improved. Along with that her abdominal discomfort has pretty much resolved. She has had no further episodes of dry heaves. She's denies any drug diarrhea. She is currently on a full liquid diet. She does not like the food in the hospital. She is requesting a pudding to eat nursing has been notified. Afebrile. WBC is 10.2 hemoglobin 11.4 potassium is 3.1 Patient seen and examined with Dr. mckeon PHYSICAL EXAM: VITAL SIGNS: Reviewed. GENERAL: Well-developed in no acute distress. HEENT: No sclera icterus. Extraocular movements grossly intact. Moist buccal mucosa. Head is atraumatic, normocephalic. ABDOMEN: Soft. Nondistended. Nontender NEUROLOGIC: Alert and oriented. Cranial nerves II through XII grossly intact. ASSESSMENT: 1. Abdominal pain with nausea vomiting and diarrhea improved 2. Mild wall thickening of the ascending colon may reflect nonspecific colitis noted on CAT scan 3. Fixed hiatal hernia 4. Diverticulosis PLAN: -No surgical intervention planned during this admission -Plan for EGD and colonoscopy outpatient with Dr. Mckeon -Patient will need to be off of her Plavix for 5 days prior to EGD and colonoscopy -Patient can be discharged from surgical standpoint when cleared medically Physician Hay Baler note has been reviewed by physician. Signing provider agrees with the documented findings, assessment, and plan of care. Objective - Vital Signs Vital signs: Vital Signs Temp 98.6 F 10/24/20 08:00 Pulse 64 10/24/20 08:00 Resp 18 10/24/20 08:00 BP 156/71 10/24/20 08:00 Pulse Ox 94 L 10/24/20 08:00 Intake & Output 10/23/20 10/24/20 10/24/20 18:59 06:59 18:59 Intake Total 480 Balance 480 Weight 71.7 kg Intake: Oral 480 Other: Voiding Method Toilet Toilet # Voids 2 1 1 - Labs CBC & Chem 7: 09/09/21 10:56 10/24/20 10:56 Labs: Abnormal Lab Results - Last 24 Hours (Table) 10/24/20 10/24/20 Range/Units 10:56 10:56 Neutrophils # 7.8 H (1.3-7.7) k/uL Potassium 3.1 L (3.5-5.1) mmol/L BUN 18 H (7-17) mg/dL Glucose 138 H (74-99) mg/dL
[2020-10-24 14:58] VITALS: RESP 17
[2020-10-24 15:52] VITALS: BP 122/77; PULSE 71; TEMP 98
--- NOTE | 2020-10-24 21:29 | P.PN ---
Subjective Progress Note Date: 10/24/20 Patient was seen for a follow-up. Patient states her headaches had resolved. Wants to go home. Objective - Vital Signs Vital signs: Vital Signs Temp 98.0 F 10/24/20 15:52 Pulse 71 10/24/20 15:52 Resp 17 10/24/20 15:52 BP 122/77 10/24/20 15:52 Pulse Ox 94 L 10/24/20 15:52 Intake & Output 10/24/20 10/24/20 10/25/20 06:59 18:59 06:59 Intake Total 1020 Balance 1020 Weight 71.7 kg Intake: Intake, IV Titration 300 Amount Sodium Chloride 0.9% 1, 300 000 ml @ 50 mls/hr IV . Q20H WENDY Rx#:[id number] Oral 720 Other: Voiding Method Toilet Toilet # Voids 1 3 - Exam Nonfocal. - Labs CBC & Chem 7: 10/24/20 10:56 10/24/20 10:56 Labs: Abnormal Lab Results - Last 24 Hours (Table) 10/24/20 10/24/20 Range/Units 10:56 10:56 Neutrophils # 7.8 H (1.3-7.7) k/uL Potassium 3.1 L (3.5-5.1) mmol/L BUN 18 H (7-17) mg/dL Glucose 138 H (74-99) mg/dL Assessment and Plan Assessment: * Cephalalgia, since minor closed head injury. Patient has history of similar headaches in the past with previous admission in August 2019, which resolved with Fioricet. Suspect tension headache, possible secondary migraine. Patient's uncontrolled hypertension may be contributing. * Hypertension, not well controlled * History of CVA * Hyperlipidemia * Abdominal pain, nausea vomiting. Surgery on board. Possible colitis. Plan: * Patient's migraine has resolved with Fioricet. Okay to discharge with prescription of Fioricet to be taken as needed for migraines. * Patient recommended to follow up with a neurologist. * Continue her dual antiplatelet medication. Patient also on Lipitor 40 mg. * Continue Protonix 40 mg daily for gastric ulcer prophylaxis. * Optimize control of blood pressure, as uncontrolled blood pressure may be contributing to the headache. * Neurologically clear for discharge.
[2020-10-25] MEDS ORDERED: POTASSIUM CHLORIDE ER 20 MEQ TAB.ER PO SCH (09:00)
== END 2020-10-24 18:06 | disposition home or self-care (01) | DRG 392 ==
LOC: EC 13:22 → 3SCARD 15:05
PROVIDERS: ADMIT Family Medicine; ATTEND Family Medicine
DX: K52.9 Noninfective gastroenteritis and colitis, unspecified (principal); E03.9 Hypothyroidism, unspecified; E78.5 Hyperlipidemia, unspecified; E86.0 Dehydration; G43.909 Migraine, unspecified, not intractable, without status migrainosus; I11.9 Hypertensive heart disease without heart failure; I25.10 Atherosclerotic heart disease of native coronary artery without angina pectoris; I73.9 Peripheral vascular disease, unspecified; K44.9 Diaphragmatic hernia without obstruction or gangrene; Z79.02 Long term (current) use of antithrombotics/antiplatelets; Z79.82 Long term (current) use of aspirin; Z79.890 Hormone replacement therapy; Z79.899 Other long term (current) drug therapy; M19.90 Unspecified osteoarthritis, unspecified site; F41.9 Anxiety disorder, unspecified; Z82.49 Family history of ischemic heart disease and other diseases of the circulatory system; Z86.73 Personal history of transient ischemic attack (TIA), and cerebral infarction without residual deficits; Z87.891 Personal history of nicotine dependence; Z82.3 Family history of stroke; Z80.0 Family history of malignant neoplasm of digestive organs
CPT/HCPCS: 36415; 70450; 71046; 74176; 80048; 80053; 82607; 82746; 83735; 84484; 85025; 85027; 85610; 85730; 87635; 93005

== ENCOUNTER 2020-10-27 13:38 | Inpatient (IN) | payer MEDICARE ==
--- NOTE | 2020-10-27 14:25 | ED ---
Headache HPI - General Chief Complaint: Headache Stated Complaint: High BP Mode of arrival: EMS Limitations: no limitations - History of Present Illness Initial Comments: 79-year-old female with history of hypertension presents to the emergency department with a chief complaint of a headache. Patient states she was discharged from the emergency department 2 days ago for the headache nausea vomiting and hypertension. States she was started on a new antihypertensive medication which she has been taking regularly. States she was also discharged with an oral tablet for her headaches. Patient reports her symptoms have not improved, if anything they have worsened. She states the headache is mostly located in the frontal region of her head without any radiation. States the pain can be 9 or 10/10. She does report photophobia and nausea with multiple episodes of nonbilious and nonbloody vomiting. She denies any one-sided weakness or paresthesias or any visual changes. Denies any chest pain or shortness of breath. - Related Data Home Medications Medication Instructions Recorded Confirmed Clopidogrel [Plavix] 75 mg PO DAILY 09/04/15 10/27/20 Levothyroxine Sodium [Synthroid] 75 mcg PO DAILY 09/04/15 10/27/20 Citalopram Hydrobromide [CeleXA] 20 mg PO DAILY 09/02/17 10/27/20 Diltiazem HCl [Diltiazem HCl 24Hr 240 mg PO DAILY 09/02/17 10/27/20 ER ([place])] Fenofibrate 160 mg PO DAILY 09/02/17 10/27/20 Atorvastatin Calcium [Lipitor] 40 mg PO DAILY 10/20/20 10/27/20 Vitamin E 400 unit PO DAILY 10/20/20 10/27/20 Butalb/APAP/Caff 50-325-40Mg 1 tab PO Q4HR PRN 10/27/20 10/27/20 [Fioricet 50-325-40] Previous Rx's Medication Instructions Recorded ALPRAZolam [Xanax] 0.25 mg PO DAILY PRN tab 10/24/20 Acetaminophen Tab [Tylenol] 650 mg PO Q4HR PRN tab 10/24/20 Potassium Chloride ER [K-Dur 20] 20 meq PO DAILY 90 Days #90 tablet 10/24/20 amLODIPine [Norvasc] 5 mg PO DAILY 90 Days #90 tab 10/24/20 hydrALAZINE HCL [Apresoline] 100 mg PO BID 90 Days #180 tab 10/24/20 Allergies Allergy/AdvReac Type Severity Reaction Status Date / Time losartan AdvReac shaking Verified 10/27/20 16:03 hands/headache Review of Systems ROS Statement: Those systems with pertinent positive or pertinent negative responses have been documented in the HPI. ROS Other: All systems not noted in ROS Statement are negative. Past Medical History Past Medical History: CVA/TIA, Hyperlipidemia, Hypertension, Osteoarthritis (OA), Thyroid Disorder Additional Past Medical History / Comment(s): EGD History of Any Multi-Drug Resistant Organisms: None Reported Past Surgical History: Cholecystectomy, Tubal Ligation Additional Past Surgical History / Comment(s): LEFT KNEE SURGERY Past Anesthesia/Blood Transfusion Reactions: Blood Transfusion Reaction, Motion Sickness Additional Past Anesthesia/Blood Transfusion Reaction / Comment(s): "'LOSS OF CONSCIOUSNESS WITH A BLODD TRANSFUSION REACTION -CAN TAKE PLASMA SHOTS" PER PATIENT Past Psychological History: Anxiety Smoking Status: Former smoker Past Alcohol Use History: Rare Past Drug Use History: None Reported - Past Family History Mother Family Medical History: Blood Disorder, CVA/TIA, Hypertension, Myocardial Infarction ([place]) Additional Family Medical History / Comment(s): MASSIVE [place] Father Family Medical History: Cancer Additional Family Medical History / Comment(s): COLON [place] General Exam Limitations: no limitations General appearance: alert, in no apparent distress Head exam: Present: atraumatic, normocephalic, normal inspection Eye exam: Present: normal appearance Pupils: Present: normal accommodation ENT exam: Present: normal exam, normal oropharynx, mucous membranes moist Neck exam: Present: normal inspection, full ROM. Absent: tenderness Respiratory exam: Present: normal lung sounds bilaterally. Absent: respiratory distress, wheezes, rales, rhonchi, stridor, chest wall tenderness, accessory muscle use Cardiovascular Exam: Present: regular rate, normal rhythm, normal heart sounds. Absent: systolic murmur GI/Abdominal exam: Present: soft. Absent: distended, tenderness, guarding, rebound, rigid Extremities exam: Present: normal inspection, full ROM, normal capillary refill. Absent: tenderness, pedal edema, joint swelling Back exam: Present: normal inspection, full ROM. Absent: tenderness, CVA tenderness (R), CVA tenderness (L), muscle spasm Neurological exam: Present: alert, oriented X3, CN II-XII intact, normal gait Psychiatric exam: Present: normal affect, normal mood Skin exam: Present: warm, dry, intact, normal color Course Vital Signs 10/27/20 10/27/20 10/27/20 13:42 16:30 16:55 Temperature 97.6 F Pulse Rate 61 58 L 60 Respiratory 16 16 16 Rate Blood Pressure 170/85 183/86 159/75 O2 Sat by Pulse 99 93 L 94 L Oximetry Medical Decision Making - Medical Decision Making 79-year-old female with history of hypertension presents to the emergency department with a chief complaint of a headache. On physical examination, no focal deficits but she continues to complain of a severe headache. Patient was given IV fluids, antiemetics. On reevaluation she reports the headache is getting slightly worse. At this time, a decision was made to repeat a CT of the head which did not show any acute processes. CBC CMP UA unremarkable. She did have an elevated troponin of 0.060. Patient will be started on aspirin. On reevaluation, she reports improvement in the headache after receiving a dose of Dilaudid. Patient was also started on magnesium sulfate. I spoke to Dr. Garcia will admit the patient for further medical management. Case discussed with Dr. Carlson. Neurology on consult Cardiology consult - Lab Data Result diagrams: 10/27/20 14:41 10/27/20 14:41 Lab Results 10/27/20 10/27/20 10/27/20 Range/Units 14:41 14:41 14:41 WBC 7.8 (3.8-10.6) k/uL RBC 3.93 (3.80-5.40) m/uL Hgb 11.8 (11.4-16.0) gm/dL Hct 34.4 (34.0-46.0) % MCV 87.7 (80.0-100.0) fL MCH 29.9 (25.0-35.0) pg MCHC 34.1 (31.0-37.0) g/dL RDW 15.3 (11.5-15.5) % Plt Count 190 (150-450) k/uL MPV 8.8 Neutrophils % 69 % Lymphocytes % 22 % Monocytes % 5 % Eosinophils % 1 % Basophils % 0 % Neutrophils # 5.4 (1.3-7.7) k/uL Lymphocytes # 1.7 (1.0-4.8) k/uL Monocytes # 0.4 (0-1.0) k/uL Eosinophils # 0.1 (0-0.7) k/uL Basophils # 0.0 (0-0.2) k/uL PT 10.2 (9.0-12.0) sec INR 0.9 (<1.2) APTT 25.6 (22.0-30.0) sec Sodium (137-145) mmol/L Potassium (3.5-5.1) mmol/L Chloride (98-107) mmol/L Carbon Dioxide (22-30) mmol/L Anion Gap mmol/L BUN (7-17) mg/dL Creatinine (0.52-1.04) mg/dL Est GFR (CKD-EPI)AfAm (>60 ml/min/1.73 sqM) Est GFR (CKD-EPI)NonAf (>60 ml/min/1.73 sqM) Glucose (74-99) mg/dL Calcium (8.4-10.2) mg/dL Total Bilirubin (0.2-1.3) mg/dL AST (14-36) U/L ALT (4-34) U/L Alkaline Phosphatase (38-126) U/L Troponin I (0.000-0.034) ng/mL Total Protein (6.3-8.2) g/dL Albumin (3.5-5.0) g/dL Urine Color Light Yellow Urine Appearance Clear (Clear) Urine pH 7.5 (5.0-8.0) Ur Specific Carlin 1.013 (1.001-1.035) Urine Protein Negative (Negative) Urine Glucose (UA) Negative (Negative) Urine Ketones Negative (Negative) Urine Blood Negative (Negative) Urine Nitrite Negative (Negative) Urine Bilirubin Negative (Negative) Urine Urobilinogen <2.0 (<2.0) mg/dL Ur Leukocyte Esterase Negative (Negative) 10/27/20 10/27/20 Range/Units 14:41 14:41 WBC (3.8-10.6) k/uL RBC (3.80-5.40) m/uL Hgb (11.4-16.0) gm/dL Hct (34.0-46.0) % MCV (80.0-100.0) fL MCH (25.0-35.0) pg MCHC (31.0-37.0) g/dL RDW (11.5-15.5) % Plt Count (150-450) k/uL MPV Neutrophils % % Lymphocytes % % Monocytes % % Eosinophils % % Basophils % % Neutrophils # (1.3-7.7) k/uL Lymphocytes # (1.0-4.8) k/uL Monocytes # (0-1.0) k/uL Eosinophils # (0-0.7) k/uL Basophils # (0-0.2) k/uL PT (9.0-12.0) sec INR (<1.2) APTT (22.0-30.0) sec Sodium 136 L (137-145) mmol/L Potassium 3.8 (3.5-5.1) mmol/L Chloride 106 (98-107) mmol/L Carbon Dioxide 22 (22-30) mmol/L Anion Gap 8 mmol/L BUN 16 (7-17) mg/dL Creatinine 0.64 (0.52-1.04) mg/dL Est GFR (CKD-EPI)AfAm >90 (>60 ml/min/1.73 sqM) Est GFR (CKD-EPI)NonAf 86 (>60 ml/min/1.73 sqM) Glucose 97 (74-99) mg/dL Calcium 8.9 (8.4-10.2) mg/dL Total Bilirubin 0.6 (0.2-1.3) mg/dL AST 31 (14-36) U/L ALT 20 (4-34) U/L Alkaline Phosphatase 68 (38-126) U/L Troponin I 0.060 H* (0.000-0.034) ng/mL Total Protein 6.3 (6.3-8.2) g/dL Albumin 3.7 (3.5-5.0) g/dL Urine Color Urine Appearance (Clear) Urine pH (5.0-8.0) Ur Specific Carlin (1.001-1.035) Urine Protein (Negative) Urine Glucose (UA) (Negative) Urine Ketones (Negative) Urine Blood (Negative) Urine Nitrite (Negative) Urine Bilirubin (Negative) Urine Urobilinogen (<2.0) mg/dL Ur Leukocyte Esterase (Negative) Disposition Clinical Impression: Headache, Elevated troponin Disposition: ADMITTED IP TO THIS [facility] Condition: Stable Instructions (If sedation given, give patient instructions): Acute Headache (ED) Is patient prescribed a controlled substance at d/c from ED?: No Referrals: Ottoniel Garcia MD [Primary Care Provider] - 1-2 days Time of Disposition: 17:17
[2020-10-27] MEDS ORDERED: METOCLOPRAMIDE 5 MG/ML 2 ML VIAL IVP STA (14:31)
[2020-10-27] MEDS ORDERED: SODIUM CHLORIDE 0.9% 1,000 ML IV STA (14:31)
[2020-10-27] MEDS ORDERED: diphenhydrAMINE 50 MG/ML 1 ML VIAL IVP STA (14:31)
[2020-10-27 14:57] LABS: Basophils % (A) 0 %; Eosinophils # (A) 0.1 k/uL (0-0.7); Eosinophils % (A) 1 %; HCT 34.4 % (34.0-46.0); HGB 11.8 gm/dL (11.4-16.0); Lymphocytes # (A) 1.7 k/uL (1.0-4.8); Lymphocytes % (A) 22 %; MCH 29.9 pg (25.0-35.0); MCHC 34.1 g/dL (31.0-37.0); MCV 87.7 fL (80.0-100.0); Mean Platelet Volume 8.8; Monocytes # (A) 0.4 k/uL (0-1.0); Monocytes % (A) 5 %; Neutrophils # (A) 5.4 k/uL (1.3-7.7); Neutrophils % (A) 69 %; Platelet Count 190 k/uL (150-450); RBC 3.93 m/uL (3.80-5.40); RDW 15.3 % (11.5-15.5); WBC 7.8 k/uL (3.8-10.6)
[2020-10-27 15:05] LABS: INR 0.9 (<1.2); Partial Thromboplastin Time 25.6 sec (22.0-30.0); Prothrombin Time 10.2 sec (9.0-12.0)
[2020-10-27 15:10] LABS: ALT 20 U/L (4-34); AST 31 U/L (14-36); African American GFR (CKD) >90 (>60 ml/min/1.73 sqM); Albumin 3.7 g/dL (3.5-5.0); Alkaline Phosphatase 68 U/L (38-126); Anion Gap 8 mmol/L; Blood Urea Nitrogen 16 mg/dL (7-17); Calcium 8.9 mg/dL (8.4-10.2); Carbon Dioxide 22 mmol/L (22-30); Chloride 106 mmol/L (98-107); Glucose 97 mg/dL (74-99); Non-African American GFR(CKD) 86 (>60 ml/min/1.73 sqM); Potassium 3.8 mmol/L (3.5-5.1); Sodium 136 mmol/L (137-145); Total Bilirubin 0.6 mg/dL (0.2-1.3); Total Protein 6.3 g/dL (6.3-8.2)
[2020-10-27] MEDS ORDERED: HYDROmorphone 0.5 MG/0.5 ML SYRINGE IVP STA (15:45)
[2020-10-27] MEDS ORDERED: MAGNESIUM SULFATE-D5W PMX 1 GM in DEXTROSE/WATER 1 100ML.BAG IVPB ONE (15:46)
[2020-10-27] MEDS ORDERED: hydrALAZINE HCL 20 MG/ML 1 ML VIAL IVP STA (16:20)
[2020-10-27 16:43] LABS: Appearance,Urine Clear (Clear); Bilirubin,Urine Negative (Negative); Blood,Urine Negative (Negative); Color,Urine Light Yellow; Glucose,Urine (UA) Negative (Negative); Ketones,Urine Negative (Negative); Leukocyte Esterase,Urine Negative (Negative); Nitrite,Urine Negative (Negative); PH, Urine 7.5 (5.0-8.0); Protein,Urine Negative (Negative); Specific Gravity,Urine 1.013 (1.001-1.035); Urobilinogen,Urine <2.0 mg/dL (<2.0)
--- NOTE | 2020-10-27 16:54 | CT ---
EXAMINATION TYPE: CT brain wo con DATE OF EXAM: 10/27/2020 COMPARISON: Head CTs most recently dated 10/20/2020 HISTORY: ams, high BP CT DLP: 1106.4 mGycm. Automated Exposure Control for Dose Reduction was Utilized. TECHNIQUE: Multiple contiguous axial CT images of the head were performed from the skull base through the vertex without the administration of intravenous contrast. 2-D sagittal and coronal reformats we re obtained. FINDINGS: No acute intracranial hemorrhage, mass effect, or midline shift. The ventricles and sulci are within normal limits in size. Encephalomalacia of the right cerebellum, right parietal lobe, and medial left occipital lobe; otherwise, the cabral-white differentiation is preserved. Advanced burden of decreased attenuation within the bilateral cerebral white matter likely chronic small vessel ischemic change. No CT evidence of acute large vessel territorial ischemia. Calvarium appears intact. The globes are i ntact and the visualized sinuses are clear. IMPRESSION: No acute intracranial process.
[2020-10-27] MEDS ORDERED: NALOXONE 0.4 MG/ML 1 ML VIAL IV PRN (17:14)
[2020-10-27] MEDS ORDERED: ASPIRIN 81 MG PO STA (17:16)
[2020-10-27] MEDS: SODIUM CHLORIDE 0.9% 1,000 ML IV SCH (18:24)
[2020-10-27] MEDS: HYDROmorphone 0.5 MG/0.5 ML SYRINGE IVP PRN (20:04)
[2020-10-28] MEDS: HYDROmorphone 0.5 MG/0.5 ML SYRINGE IVP PRN ×4 (00:25→22:36)
[2020-10-28] MEDS: ONDANSETRON 4 MG/2 ML VIAL IVP PRN ×2 (00:26→06:55)
[2020-10-28] MEDS: SODIUM CHLORIDE 0.9% 1,000 ML IV SCH (09:53)
[2020-10-28] MEDS ORDERED: amLODIPine 5 MG TAB PO SCH (10:00)
[2020-10-28] MEDS ORDERED: CLOPIDOGREL 75 MG TAB PO SCH (10:00)
--- NOTE | 2020-10-28 10:14 | P.CNNES ---
History of Present Illness Consult date: 10/28/20 Requesting physician: Thanh Kelley Reason for Consult: hypertensive headache History of Present Illness: This is a 79-year-old woman with medical history of stroke, cephalgia (suspected tension) and uncontrolled hypertension, minor closed head injury, hyperlipidemia who presented emergency department on 10/27/2020 with a complaint of headache. eurology consulted for headache. She was evaluated by Dr. Carty (Neuro-Hospitalist) on your 10/24/2020 and he stated that the patient has headache and he felt he suspected that tension headache and possible secondary migraine as well as patient has uncontrolled hypertension that be contributing to the headache. In his note he stated the hypertension is not well controlled. Per the patient her blood pressure continues to be uncontrolled at home. She stated that for headache over the bilateral frontal anterior temporal region that radiates throughout the head, at the throbbing headache, she does have photophobia denies photophobia but does have nausea and denies any vomiting. Denies any visual disturbance associated with this. The headache can last at least 34 hours and she has to take something for it but can Tell Me What Medication. The Headaches Usually Occur at Night. As Stated Earlier Her Blood Pressure Continues to Be Uncontrolled and She Said She Does Not Know Why. She Was Not Seen by Any Neurologist As an Outpatient since She Was Just Recently Discharged. Patient stated that she is on aspirin 81, Plavix 75 and the Lipitor 40 mg daily. Also per Dr. Carty's note, he recommended for the patient the out to be on discharged on Fioricet and to follow up with a neurologist. A [place] for the patient that to be the continued on dual antiplatelet medication and to continue Lipitor 40 mg daily. Please refer to his note for further details. According to patient she had 3 different strokes in the past and the first was about 12 years ago. Some of the patient on medication consist of hydralazine 100 mg a tablet twice a day, amlodipine 5 mg daily, fenofibrate's 160 daily, Diltiazem, Plavix 75 mg daily, Lipitor 40 mg daily, Celexa, acetaminophen, Xanax 0.25 mg daily when necessary. Some of the workup in the hospital consisted of: On presentation the patient presented with a blood pressure of 170/85 and a got as high as 183/86. CBC with differential is unremarkable. Chemistry panel the only thing that was remarkable is elevated troponin of 0.060 than its 0.052 and the rates the last ones 0.059 otherwise the rest of the Spinal is unremarkable. Basic coagulation study is normal. Serum georges virus PCR was not detected. CT of the head is reported as no acute intracranial process. Nobody reported it is mentioned the patient has encephalomalacia over the right cerebellum, right parietal lobe and medial left occipital lobe as well as advance burden of decreased attenuation within the bilateral cerebral white matter likely chronic small vessel change. The patient CT of the head on the 2020 it is reported the patient had right sided posterior fossa finding unchanged consistent with old infarct versus large arachnoid cyst and it's unchanged as since [address] findings are the same as in the 2020 findings. Review of Systems Review of system: The 12 point system was reviewed and apparent positive and negative per HPI. Past Medical History Past Medical History: CVA/TIA, Hyperlipidemia, Hypertension, Osteoarthritis (OA), Thyroid Disorder Additional Past Medical History / Comment(s): EGD History of Any Multi-Drug Resistant Organisms: None Reported Past Surgical History: Cholecystectomy, Tubal Ligation Additional Past Surgical History / Comment(s): LEFT KNEE SURGERY Past Anesthesia/Blood Transfusion Reactions: Blood Transfusion Reaction, Motion Sickness Additional Past Anesthesia/Blood Transfusion Reaction / Comment(s): "'LOSS OF CONSCIOUSNESS WITH A BLODD TRANSFUSION REACTION -CAN TAKE PLASMA SHOTS" PER PATIENT Past Psychological History: Anxiety Smoking Status: Former smoker Past Alcohol Use History: Rare Past Drug Use History: None Reported - Past Family History Mother Family Medical History: Blood Disorder, CVA/TIA, Hypertension, Myocardial Infarction ([place]) Additional Family Medical History / Comment(s): MASSIVE [place] Father Family Medical History: Cancer Additional Family Medical History / Comment(s): COLON CA Medications and Allergies Home Medications Medication Instructions Recorded Confirmed Type Clopidogrel [Plavix] 75 mg PO DAILY 09/04/15 10/27/20 History Levothyroxine Sodium [Synthroid] 75 mcg PO DAILY 09/04/15 10/27/20 History Citalopram Hydrobromide [CeleXA] 20 mg PO DAILY 09/02/17 10/27/20 History Diltiazem HCl [Diltiazem HCl 24Hr 240 mg PO DAILY 09/02/17 10/27/20 History ER ([place])] Fenofibrate 160 mg PO DAILY 09/02/17 10/27/20 History Atorvastatin Calcium [Lipitor] 40 mg PO DAILY 10/20/20 10/27/20 History Vitamin E 400 unit PO DAILY 10/20/20 10/27/20 History ALPRAZolam [Xanax] 0.25 mg PO DAILY PRN tab 10/24/20 10/27/20 Rx Acetaminophen Tab [Tylenol] 650 mg PO Q4HR PRN tab 10/24/20 10/27/20 Rx Potassium Chloride ER [K-Dur 20] 20 meq PO DAILY 90 Days #90 tablet 10/24/20 10/27/20 Rx amLODIPine [Norvasc] 5 mg PO DAILY 90 Days #90 tab 10/24/20 10/27/20 Rx hydrALAZINE HCL [Apresoline] 100 mg PO BID 90 Days #180 tab 10/24/20 10/27/20 Rx Butalb/APAP/Caff 50-325-40Mg 1 tab PO Q4HR PRN 10/27/20 10/27/20 History [Fioricet 50-325-40] Allergies Allergy/AdvReac Type Severity Reaction Status Date / Time losartan AdvReac shaking Verified 10/27/20 16:03 hands/headache Physical Examination - Vital Signs Vital Signs: Vital Signs Temp Pulse Pulse Resp BP BP Pulse Ox 10/28/20 04:00 98.6 F 72 18 170/82 97 10/28/20 02:00 72 18 10/28/20 00:00 98.3 F 58 L 18 160/83 96 10/27/20 22:33 97.9 F 81 20 161/88 94 L 10/27/20 18:00 66 16 142/66 95 10/27/20 16:55 60 16 159/75 94 L 10/27/20 16:30 58 L 16 183/86 93 L 10/27/20 13:42 97.6 F 61 16 170/85 99 Intake and Output 10/27/20 10/28/20 10/28/20 22:59 06:59 14:59 Other: Voiding Method Bedside Commode GENERAL: The patient is lying in bed and is moderate acute distress. CHEST: The heart rate is regular rate rhythm. No murmurs to auscultation. No carotid bruit bilaterally. LUNG: Clear to auscultation bilaterally no wheezing noted throughout. Not labored breathing. ABDOMEN/GI: Bowel sounds present in all 4 quadrants. No tenderness to palpation throughout. NEUROLOGICAL: Higher mental function: The patient is awake, alert, oriented to self, place and time. Patient is following commands. No aphasia and no neglect. Cranial nerves: The pupils are round, equal and reactive to light and a ccommodation. Visual burr are full to confrontation throughout. Extraocular movement is intact no nystagmus is noted. Facial sensation is normal to touch throughout. The facial strength is normal throughout. Hearing is mildly decreased bilaterally to hand rub. Tongue is midline and moved [id number] without any difficulty. No dysarthria is noted. Shoulder shrug is normal bilaterally. Motor: Gait is deferred. The strength is 5 over 5 throughout. Normal tone and bulk. Cerebellum: Normal finger to nose heel to escobar bilaterally. Sensation: Sensation is normal to touch throughout. Reflexes (right/left): 3+ over bilateral brachioradialis. Otherwise the rest of uppers are 2-3+. Lowers 2+ throughout. Plantars are mute bilaterally (initially was upgoing on the left but repeated was mute). Results - Laboratory Findings CBC and BMP: 10/27/20 14:41 10/27/20 14:41 Abnormal Lab Findings: Abnormal Labs 10/27/20 10/27/20 10/27/20 14:41 14:41 21:38 Sodium 136 L Troponin I 0.060 H* 0.052 H* 10/28/20 00:20 Sodium Troponin I 0.059 H* Assessment and Plan Assessment: Cephaglia: Seems component of uncontrolled hypertension and migraine headache. History of stroke (on imaging patient has old left medial occipital, right parietal). 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 Low normal Vitamin B12 (319) Hypertensive urgency. Elevated troponin History of minor closed head injury Hyperlipidemia Plan: * Started the patient on Propanolol 30mg bid (for blood pressure control and has effect on migraine prophylaxis). For migraine abortive, ordered Gabapentin 100mg 1 tab bid PRN. * Recommend better control of her hypertension which can have an effect on her headaches. Will defer management to the primary team. * Ordered MRI of the brain and MRA of the head to rule out any new acute ischemia and any aneurysm. * Restarted the patient dual antiplatelets as was recommended the by Dr. Scott's note on 10/24/2020 (Plavix 75mg and ASA 81mg daily). Recommend continuing lipitor 40mg qhs. * Every 4 hours neuro checks * Because of low normal vitamin B12 I placed the patient on the vitamin B12 1000 g daily. * On cardiac monitoring * Cardiology is consulted for elevated troponin. * Will Defer the rest of the medical management to the primary team. * Upon discharge the patient needs to follow-up with a neurologist as an outpatient within 1-2 weeks. The plan is discussed with the patient's nurse. Thank you for the consultation. UPDATE: * MRI of the brain is reported as 2 tiny acute lacunar infarct in the right parietal lobe on current study. The background mild to moderate diffuse cerebral atrophy and moderate to advanced chronic small vessel ischemic changes redemonstrated. Background stable prominent CSF posterior aspect right posterior fossa favoring an arachnoid cyst over old encephalomalacia. I spoke with the reading radiologist (dR. Benitez) and he stated that he also saw another lesion over the left occipital region. * Thererefore acute ischemic stroke over bilateral hemisphere. Rule out cardioemboli. * Patient NIH stroke scale was a 0 on examination and did not get IV TPA since the she did not present with strokelike symptoms. * I stopped Plavix and I started the patient on Brilinta, 90 mg 1 tablet twice a day. Patient to continue aspirin 81mg daily * I'll ask cardiology to get SHANTE to rule out cardioemboli. * Recommend loop recorder as outpatient if possible. * Ordered carotid duplex lipid panel hemoglobin A1c. Jose Yanez MD Neuro-Hospitalist. Time with Patient: Greater than 30
[2020-10-28] MEDS: GABAPENTIN 100 MG CAP PO PRN ×2 (10:21→20:23)
[2020-10-28] MEDS: ASPIRIN 81 MG PO SCH (10:21)
[2020-10-28] MEDS: hydrALAZINE HCL 50 MG TAB PO SCH ×2 (10:21→20:23)
[2020-10-28] MEDS: ATORVASTATIN 40 MG TAB PO SCH (10:21)
[2020-10-28] MEDS: FENOFIBRATE 160 MG TAB PO SCH (10:22)
[2020-10-28] MEDS: DILTIAZEM CD 240 MG CAP.ER.24H PO SCH (10:27)
[2020-10-28] MEDS: PROPRANOLOL 10 MG TAB PO SCH ×2 (10:27→22:39)
[2020-10-28] MEDS ORDERED: ALPRAZolam 0.25 MG TAB PO PRN ×2 (10:45→23:04)
--- NOTE | 2020-10-28 12:49 | ECHOF ---
Referral Reason:LV function MEASUREMENTS -------- HEIGHT: 165.1 cm WEIGHT: 68.0 kg BP: 143/86 RVIDd: 2.9 cm (< 3.3) IVSd: 1.2 cm (0.6 - 1.1) LVIDd: 3.9 cm (3.9 - 5.3) LVPWd: 1.3 cm (0.6 - 1.1) IVSs: 1.6 cm LVIDs: 2.4 cm LVPWs: 1.1 cm LAESV Index (A-L): 21.71 ml/m MV E Bradly: 0.90 m/s MV DecT: 203 ms MV A Bradly: 0.64 m/s MV E/A Ratio: 1.41 AR PHT: 462 ms RAP: 5.00 mmHg RVSP: 29.40 mmHg FINDINGS -------- Sinus rhythm. This was a technically adequate study. The left ventricular size is normal. There is mild concentric left ventricular hypertrophy. Overa ll left ventricular systolic function is normal with, an EF between 55 - 60 %. The diastolic fillin g pattern is normal for the age of the patient 10.75. The right ventricle is normal in size. Normal LA size by volume 22+/-6 ml/m2. The right atrial size is normal. Interatrial and interventricular septum intact. There is mild aortic regurgitation. There is no evidence of aortic stenosis. Mild mitral regurgitation is present. Mild tricuspid regurgitation present. There is no evidence of pulmonary hypertension. The right v entricular systolic pressure, as measured by Doppler, is 29.40mmHg. There is no pulmonic regurgitation present. The aortic root size is normal. IVC Not well visulized. There is no pericardial effusion. CONCLUSIONS -------- 1. The left ventricular size is normal. 2. There is mild concentric left ventricular hypertrophy. 3. Overall left ventricular systolic function is normal with, an EF between 55 - 60 %. 4. The diastolic filling pattern is normal for the age of the patient 10.75 5. There is mild aortic regurgitation. 6. Mild mitral regurgitation is present. 7. Mild tricuspid regurgitation present. ESTATE AGENT: Ashley Akins [facility]
[2020-10-28] MEDS ORDERED: ONDANSETRON 4 MG/2 ML VIAL IVP PRN (13:03)
--- NOTE | 2020-10-28 13:53 | MR ---
EXAMINATION TYPE: MR angio head wo con DATE OF EXAM: 10/28/2020 COMPARISON: CTA head September 05, 2019 HISTORY: Hypertensive headaches. TECHNIQUE: Time of flight images focusing on the [place] of [place] were performed without contrast.. 2-D and 3-D postprocessing imaging is performed on independent workstation.. FINDINGS: There is a codominant portable artery is patent to basilar junction. No significant focal s tenosis or aneurysmal change in the posterior circulation. Small caliber but patent bilateral posteri or communicating arteries are identified. Anterior circulation shows patent anterior communicating artery without significant focal stenosis or aneurysm. There is persistent CSF prominence suspect prominent right inferior posterior fossa arachnoid cyst wi th local mass effect. IMPRESSION: No aneurysm at the level of the [place] de[place] of [place]. No significant change from prior CTA st udy.
--- NOTE | 2020-10-28 14:10 | MR ---
"EXAMINATION TYPE: MR brain wo/w con DATE OF EXAM: 10/28/2020 COMPARISON: CT brain from yesterday. MRI brain September 05, 2019 HISTORY: Hypertensive headaches. Rule out CVA versus mass. TECHNIQUE: Multiplanar, multisequence images of the brain and brainstem is performed without and with IV contras t, utilizing 7 mL intravenous Gadavist . FINDINGS: Diffusion weighted images demonstrate 2 punctate foci of increased signal on diffusion weig hted images with diminished signal ADC mapping in the right parietal lobe image 252 series 408 suspic ious for acute lacunar infarcts. There is background [id number] diffuse cerebral atrophy with moderate to severe focal and confl uent areas of T2 hyperintensity throughout the white matter greatest in the deep and periventricular levels redemonstrated. Persistent prominent CSF involving the posterior 1/2-2/3 of the right posterio r fossa suspicious for large arachnoid cyst, local mass effect is present. Midline structures demonstrate normal morphology. The craniocervical junction appears within normal limits. Post contrast images demonstrate no abnormal enhancement. The dural venous sinuses appear pa tent. The visualized sinuses are clear and the globes are intact. Nasal septum remains slightly devia sanjay to the left of midline. IMPRESSION: 1. Two tiny acute lacunar infarcts in the right parietal lobe on current study. 2. Background [id number] diffuse cerebral atrophy and moderate to advanced chronic small vessel ischemic changes redemonstrated. Background stable prominent CSF posterior aspect right posterior fo ssa favoring an arachnoid cyst over old encephalomalacia. A Yellow level critical message alert has been initiated for Ottoniel Garcia MD via the [employer] 0 | Critical Results System on 10/28/2020 2:07 PM. This message alert has been sent to Ottoniel Garcia MD via the preferences provided by the clinician for the receipt of Radiology Critical Findings. [facility] ID [id number]."
--- NOTE | 2020-10-28 14:31 | P.CRDCN ---
History of Present Illness History of present illness: This is a 79 year old female with a past medical history significant for prior CVA, hypertension, dyslipidemia, aortic aneurysm and headaches, loop recorder placed in 08/2019. She follows in the office with Dr. Moody. We are consulted for elevated troponins and elevated blood pressure. Patient presents to the emergency department with headache. She states she has been having a throbbing bilateral frontal and temporal region headache and photophobia for about 23 days. She endorses nausea, no vomiting, having dry heaves. Per the patient her blood pressure continues to be uncontrolled at home. She recently presented to the emergency department on 10/21/2020, cardiology evaluated her for sinus bradycardia. At that time she presented to the hospital with a one-week history of abdominal discomfort associated with nausea and also associated with diarrhea. She states that time her blood pressure was elevated and her medications were recently changed by her PCP. She denies any chest pain, palpitations, shortness of breath, lower extremity edema, fatigue, weakness, lightheadedness, syncope. She does endorse not watching her salt intake at home. And her BP at home is usually in the 120s systolic. On admission patient's blood pressure 170/85, heart rate 61, afebrile, maintaining oxygen saturations on room air. DIAGNOSTICS EKG reveals sinus bradycardia, heart rate 59, no significant ST-T wave abnormalities. Echocardiogram revealed an EF of 5560 percent, mild mitral regurgitation, mild tricuspid regurgitation. Most recent stress test Lexiscan 10/2019- Negative for stress induced ischemia Loop Recorder check in office April 2020- no arrhythmias noted Telemetry tracings indicate sinus mechanism CT of the brain revealed no acute intracranial process. MRI of the brain report revealed 2 tiny acute lacunar infarcts in the right parietal lobe. Mild to moderate diffuse cerebral atrophy and moderate to advanced chronic small vessel ischemic changes redemonstrated. Background stable prominent see us at posterior aspect right posterior fossa favoring arachnoid cyst over old encephalomalacia Laboratory reviewCBC UNREMARKABLE, SODIUM 136, POTASSIUM 3.8, BUN 16, serum creatinine 0.6, Troponin 0.06, 0.05, 0.05 REVIEW OF SYSTEMS At the time of my exam: CONSTITUTIONAL: Denies fever or chills. CARDIOVASCULAR: Denies chest pain, shortness of breath, orthopnea, PND or palpitations. RESPIRATORY: Denies cough. GASTROINTESTINAL: Denies abdominal pain, diarrhea, constipation, nausea or vomiting. MUSCULOSKELETAL: Denies myalgias. NEUROLOGIC: +headache +photophobia Denies numbness, tingling, weakness. ENDOCRINE: Denies fatigue, weight change, polydipsia or polyurina. GENITOURINARY: Denies burning, hematuria or urgency with micturation. HEMATOLOGIC: Denies history of anemia or bleeding. PHYSICAL EXAMINATION Blood pressure 170/82 heart rate 66 afebrile and maintaining oxygen saturation on room air . CONSTITUTIONAL: No apparent distress. HEENT: Head is normocephalic. Pupils are equal, round. Sclerae anicteric. Mucous membranes of the mouth are moist. No JVD. No carotid bruit. CHEST EXAMINATION: Lungs are clear to auscultation. No chest wall tenderness is noted on palpation or with deep breathing. HEART EXAMINATION: Regular rate and rhythm. S1, S2 heard. No murmurs, gallops or rub. ABDOMEN: Soft, nontender. Positive bowel sounds. EXTREMITIES: 2+ peripheral pulses, no lower extremity edema and no calf tenderness. SKIN: dry, intact NEUROLOGIC EXAMINATION: Patient is awake, alert and oriented x3. Sensitivity to light ASSESSMENT Headache MRI Report revealed 2 tiny acute lacunar infarcts in the right parietal lobe Elevated troponin, not indicative of acute coronary syndrome, no EKG evidence of ischemia, patient without chest pain, normal echocardiogram Hypertensive Urgency History of CVA Dyslipidemia History of aortic aneurysm PLAN Neuro following Stop amlodipine, patient is on cardizem 240mg daily Continue patient's home medication statin and plavix, imdur, hydralazine Restart Valsartan 160mg BID Echocardiogram obtained and reviewed Monitor patient's blood pressure Further recommendations based on clinical course Nurse Practitioner note has been reviewed, I agree with a documented findings and plan of care. Patient was seen and examined. Past Medical History Past Medical History: CVA/TIA, Hyperlipidemia, Hypertension, Osteoarthritis (OA), Thyroid Disorder Additional Past Medical History / Comment(s): EGD History of Any Multi-Drug Resistant Organisms: None Reported Past Surgical History: Cholecystectomy, Tubal Ligation Additional Past Surgical History / Comment(s): LEFT KNEE SURGERY Past Anesthesia/Blood Transfusion Reactions: Blood Transfusion Reaction, Motion Sickness Additional Past Anesthesia/Blood Transfusion Reaction / Comment(s): "'LOSS OF CONSCIOUSNESS WITH A BLODD TRANSFUSION REACTION -CAN TAKE PLASMA SHOTS" PER PATIENT Past Psychological History: Anxiety Smoking Status: Former smoker Past Alcohol Use History: Rare Past Drug Use History: None Reported - Past Family History Mother Family Medical History: Blood Disorder, CVA/TIA, Hypertension, Myocardial Infarction ([place]) Additional Family Medical History / Comment(s): MASSIVE [place] Father Family Medical History: Cancer Additional Family Medical History / Comment(s): COLON [place] Medications and Allergies Home Medications Medication Instructions Recorded Confirmed Type Clopidogrel [Plavix] 75 mg PO DAILY 09/04/15 10/27/20 History Levothyroxine Sodium [Synthroid] 75 mcg PO DAILY 09/04/15 10/27/20 History Citalopram Hydrobromide [CeleXA] 20 mg PO DAILY 09/02/17 10/27/20 History Diltiazem HCl [Diltiazem HCl 24Hr 240 mg PO DAILY 09/02/17 10/27/20 History ER ([place])] Fenofibrate 160 mg PO DAILY 09/02/17 10/27/20 History Atorvastatin Calcium [Lipitor] 40 mg PO DAILY 10/20/20 10/27/20 History Vitamin E 400 unit PO DAILY 10/20/20 10/27/20 History ALPRAZolam [Xanax] 0.25 mg PO DAILY PRN tab 10/24/20 10/27/20 Rx Acetaminophen Tab [Tylenol] 650 mg PO Q4HR PRN tab 10/24/20 10/27/20 Rx Potassium Chloride ER [K-Dur 20] 20 meq PO DAILY 90 Days #90 tablet 10/24/20 10/27/20 Rx amLODIPine [Norvasc] 5 mg PO DAILY 90 Days #90 tab 10/24/20 10/27/20 Rx hydrALAZINE HCL [Apresoline] 100 mg PO BID 90 Days #180 tab 10/24/20 10/27/20 Rx Butalb/APAP/Caff 50-325-40Mg 1 tab PO Q4HR PRN 10/27/20 10/27/20 History [Fioricet 50-325-40] Allergies Allergy/AdvReac Type Severity Reaction Status Date / Time losartan AdvReac shaking Verified 10/27/20 16:03 hands/headache Physical Exam Vitals: Vital Signs Temp Pulse Pulse Resp BP BP Pulse Ox 10/28/20 04:00 98.6 F 72 18 170/82 97 10/28/20 02:00 72 18 10/28/20 00:00 98.3 F 58 L 18 160/83 96 10/27/20 22:33 97.9 F 81 20 161/88 94 L 10/27/20 18:00 66 16 142/66 95 10/27/20 16:55 60 16 159/75 94 L 10/27/20 16:30 58 L 16 183/86 93 L 10/27/20 13:42 97.6 F 61 16 170/85 99 Intake and Output 10/27/20 10/28/20 10/28/20 22:59 06:59 14:59 Other: Voiding Method Bedside Commode Results 10/27/20 14:41 10/27/20 14:41 Cardiac Enzymes 10/27/20 10/27/20 10/27/20 Range/Units 14:41 14:41 21:38 AST 31 (14-36) U/L Troponin I 0.060 H* 0.052 H* (0.000-0.034) ng/mL 10/28/20 Range/Units 00:20 AST (14-36) U/L Troponin I 0.059 H* (0.000-0.034) ng/mL Coagulation 10/27/20 Range/Units 14:41 PT 10.2 (9.0-12.0) sec APTT 25.6 (22.0-30.0) sec CBC 10/27/20 Range/Units 14:41 WBC 7.8 (3.8-10.6) k/uL RBC 3.93 (3.80-5.40) m/uL Hgb 11.8 (11.4-16.0) gm/dL Hct 34.4 (34.0-46.0) % Plt Count 190 (150-450) k/uL Comprehensive Metabolic Panel 10/27/20 Range/Units 14:41 Sodium 136 L (137-145) mmol/L Potassium 3.8 (3.5-5.1) mmol/L Chloride 106 (98-107) mmol/L Carbon Dioxide 22 (22-30) mmol/L BUN 16 (7-17) mg/dL Creatinine 0.64 (0.52-1.04) mg/dL Glucose 97 (74-99) mg/dL Calcium 8.9 (8.4-10.2) mg/dL AST 31 (14-36) U/L ALT 20 (4-34) U/L Alkaline Phosphatase 68 (38-126) U/L Total Protein 6.3 (6.3-8.2) g/dL Albumin 3.7 (3.5-5.0) g/dL Current Medications Generic Name Dose Route Start Last Admin Trade Name Freq PRN Reason Stop Dose Admin Hydromorphone HCl 0.5 mg 10/27/20 17:14 10/28/20 06:54 Hydromorphone 0.5 Mg/0.5 Ml Syringe IVP 0.5 mg Q3HR PRN Administration Moderate Pain Sodium Chloride 1,000 mls @ 75 mls/hr 10/27/20 17:15 10/27/20 18:24 Saline 0.9% IV 75 mls/hr .[id number] [id number] Administration Naloxone HCl 0.2 mg 10/27/20 17:14 Naloxone 0.4 Mg/Ml 1 Ml Vial IV Q2M PRN Opioid Reversal Ondansetron HCl 4 mg 10/27/20 17:14 10/28/20 06:55 Ondansetron 4 Mg/2 Ml Vial IVP 4 mg Q8HR PRN Administration Nausea And Vomiting Intake and Output 10/27/20 10/28/20 10/28/20 22:59 06:59 14:59 Other: Voiding Method Bedside Commode 10/27/20 14:41 10/27/20 14:41
[2020-10-28 17:03] LABS: Appearance,Urine Turbid (Clear); Bilirubin,Urine Negative (Negative); Blood,Urine Large (Negative); Color,Urine Light Orange; Glucose,Urine (UA) Negative (Negative); Ketones,Urine Negative (Negative); Leukocyte Esterase,Urine Large (Negative); Mucus,Urine Rare /hpf; Nitrite,Urine Negative (Negative); PH, Urine 6.5 (5.0-8.0); Protein,Urine 1+ (Negative); RBC,Urine >182 /hpf (0-5); Specific Gravity,Urine 1.021 (1.001-1.035); Urobilinogen,Urine <2.0 mg/dL (<2.0); WBC,Urine >182 /hpf (0-5)
--- NOTE | 2020-10-28 17:10 | US ---
EXAMINATION TYPE: US carotid duplex BILAT DATE OF EXAM: 10/28/2020 COMPARISON: CT, US CLINICAL HISTORY: stroke. Stroke per order. Previous smoker. Hypertension, hyperlipidemia. EXAM MEASUREMENTS: RIGHT: Peak Systolic Velocity (PSV) cm/sec ----- Right CCA: 64.4 ----- Right ICA: 77.6 ----- Right ECA: 96.5 ICA/CCA ratio: 1.2 RIGHT: End Diastole cm/sec ----- Right CCA: 12.8 ----- Right ICA: 17.1 ----- Right ECA: 7.2 LEFT: Peak Systolic Velocity (PSV) cm/sec ----- Left CCA: 53.4 ----- Left ICA: 90.5 ----- Left ECA: 139.2 ICA/CCA ratio: 1.7 LEFT: End Diastole cm/sec ----- Left CCA: 11.7 ----- Left ICA: 28.9 ----- Left ECA: 0.0 VERTEBRALS (direction of flow): Right Vertebral: Antegrade Left Vertebral: Antegrade Rhythm: Arrhythmia Exam is very difficult and limited due to constant patient movement. Elevated velocity within left EC A. Plaque seen bilateral bulbs and bilateral ICA. IMPRESSION: There is antegrade flow in the vertebral arteries. The images and measurements suggest less than 50% stenosis in both internal carotid arteries. There is bilateral plaque formation. NASCET criteria was used in interpretation of this exam? Criteria for Assigning % of Stenosis / Diameter reduction (Estimation based on the indirect measurements of the internal carotid artery velocities (ICA PSV). 1. Normal (no stenosis)=ICA PSV < 125 cm/s: ratio < 2.0: ICA EDV<40 cm/s. 2. Less than 50% stenosis=ICA PSV < 125 cm/s: ratio < 2.0: ICA EDV<40 cm/s. 3. 50 to 69% stenosis=ICA PSV of 125 to 230 cm/s: ration 2.0 ? 4.0: ICA EDV 40-100 cm/s. 4. Greater than 70% stenosis to near occlusion= ICA PSV > 230 cm/s: ratio > 4.0: ICA EDV > 100 cm/s. 5. Near occlusion= ICA PSV velocities may be low or undetectable: variable ratio and ICA EDV. 6. Total occlusion=unable to detect flow.
--- NOTE | 2020-10-28 19:39 | PN ---
PROGRESS NOTE The patient had a MRI of the brain that showed new punctate right parietal CVAs x2. Blood pressure has been 140s to 190s over 80s to 100s, O2 98 on room air, pulse 70s to 90s, respiratory rate 18-20, temperature 98.1. Cardiovascular S1, S2. Lungs clear. Extremities show 4/5 strength in the left arm and leg. Otherwise, no facial drooping. ASSESSMENT: 1. Acute right parietal cerebrovascular accident. Workup is in progress. Carotids pending. MRI is negative. Echo was normal. Await carotid report, and possible SHANTE will have to be done. Unclear etiology of her strokes at this point. Wait for recommendations. Possibly a transesophageal echo will be done. 2. She has elevated troponins, unclear etiology. 3. She does have a large urinary tract infection that may be contributing to things. Please see further orders. She did not have it a on yesterday's urine, but now it is super large. Blood and large leukocyte esterase. Will have to start her on antibiotics for now. MMODL / IJN: [id number] /
--- NOTE | 2020-10-28 19:39 | HP ---
HISTORY AND PHYSICAL This 79-year-old hypertensive came to the emergency room due to complaining of a headache, nausea, vomiting, hypertension. She was here, admitted 2 days ago and discharged home with hypertension controlled. She went home and her blood pressure went very high again, at which time she came back with headaches and high blood pressure. MRI has been ordered. Await neurology recommendations. HOME MEDICATIONS: Celexa 20 daily, Synthroid 75 mcg daily, Plavix 75 daily, diltiazem 240 daily, fenofibrate 160 daily, Lipitor 80 daily, vitamin E daily, Fioricet p.r.n. ALLERGIES: LOSARTAN. REVIEW OF SYSTEMS: Fourteen-point review of systems otherwise is negative. PAST MEDICAL HISTORY: CVA, TIA, hypertension, dyslipidemia, osteoarthritis, hypothyroidism. SURGERIES: Cholecystectomy, tubal ligation, left knee surgery. SOCIAL HISTORY: Former smoker. 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 FAMILY HISTORY: Mother with CVA, TIA, blood disorder, hypertension, myocardial infarction. Father with cancer of the colon. PHYSICAL EXAMINATION: Temperature 97.6, pulse 60 to 50, respiratory rate 16 to 18, blood pressure 150s to 170s over 70s to 80s. Cardiovascular S1, S2. Abdomen is soft. Extremities no edema. Neurologic: Cranial nerves are intact. Psych fair mood and affect. Skin warm, dry, intact. O2 is 94 to 99. ASSESSMENT: 1. Headaches. 2. Hypertension acceleration. Rule out stroke. Neurology recommendations pending. MRI of the brain has been ordered. Prognosis guarded. MMODL / IJN: [id number] /
[2020-10-28] MEDS: MICONAZOLE 2% VAGINAL CREAM 45 GM TUBE/KIT VAGINAL SCH (20:22)
[2020-10-28] MEDS: TICAGRELOR 90 MG TAB PO SCH (20:23)
[2020-10-28] MEDS: VALSARTAN 160 MG TAB PO SCH (22:39)
[2020-10-29] MEDS: HYDROmorphone 0.5 MG/0.5 ML SYRINGE IVP PRN (06:15)
[2020-10-29 06:51] LABS: Hemoglobin A1C 5.4 % (4.0-6.0)
[2020-10-29] MEDS: DILTIAZEM CD 240 MG CAP.ER.24H PO SCH (09:27)
[2020-10-29] MEDS: PROPRANOLOL 10 MG TAB PO SCH ×2 (09:27→20:22)
[2020-10-29] MEDS: FENOFIBRATE 160 MG TAB PO SCH (09:27)
[2020-10-29] MEDS: ATORVASTATIN 40 MG TAB PO SCH (09:27)
[2020-10-29] MEDS: TICAGRELOR 90 MG TAB PO SCH ×2 (09:27→20:23)
[2020-10-29] MEDS: hydrALAZINE HCL 50 MG TAB PO SCH ×2 (09:27→20:22)
[2020-10-29] MEDS: ASPIRIN 81 MG PO SCH (09:27)
[2020-10-29] MEDS: VALSARTAN 160 MG TAB PO SCH ×2 (09:28→20:22)
--- NOTE | 2020-10-29 12:06 | P.PN ---
Subjective This is a 79 year old female with a past medical history significant for prior CVA, hypertension, dyslipidemia, aortic aneurysm and headaches, loop recorder placed in 08/2019. She follows in the office with Dr. Moody. We are consulted for elevated troponins and elevated blood pressure. Patient presents to the emergency department with headache. She states she has been having a throbbing bilateral frontal and temporal region headache and photophobia for about 23 days. She endorses nausea, no vomiting, having dry heaves. Per the patient her b lood pressure continues to be uncontrolled at home. She recently presented to the emergency department on 10/21/2020, cardiology evaluated her for sinus bradycardia. At that time she presented to the hospital with a one-week history of abdominal discomfort associated with nausea and also associated with diarrhea. She states that time her blood pressure was elevated and her medications were recently changed by her PCP. She denies any chest pain, palpitations, shortness of breath, lower extremity edema, fatigue, weakness, lightheadedness, syncope. She does endorse not watching her salt intake at home. And her BP at home is usually in the 120s systolic. On admission patient's blood pressure 170/85, heart rate 61, afebrile, maintaining oxygen saturations on room air. DIAGNOSTICS Echocardiogram revealed an EF of 5560 percent, mild mitral regurgitation, mild tricuspid regurgitation. Most recent stress test [facility] 10/2019- Negative for stress induced ischemia Loop Recorder check in office April 2020- no arrhythmias noted MRI of the brain report revealed 2 tiny acute lacunar infarcts in the right parietal lobe. Mild to moderate diffuse cerebral atrophy and moderate to advanced chronic small vessel ischemic changes redemonstrated. Background stable prominent see us at posterior aspect right posterior fossa favoring arachnoid cyst over old encephalomalacia 10/29/2020: Patient seen and examined at bedside, she continues to have abdominal pain and headache. She states she occasionally feels like she has to dry heave. Her blood pressure is improved. BP 138/69, heart rate 64, afebrile, maintaining oxygen saturations on room air. Labs, not available today. She's currently maintained on aspirin 1 mg daily, atorvastatin 40 mg daily, Cardizem 240 mg daily, hydralazine 100 mg twice a day, propranolol 20 mg twice a day, Brilinta 90 mg twice a day, valsartan 160 mg twice a day. PHYSICAL EXAMINATION CONSTITUTIONAL: No apparent distress. HEENT: Neck Supple. No JVD. CHEST EXAMINATION: Lungs are clear to auscultation. No chest wall tenderness is noted on palpation or with deep breathing. HEART EXAMINATION: Regular rate and rhythm. S1, S2 heard. No murmurs, gallops or rub. ABDOMEN: Soft, nontender. Positive bowel sounds. EXTREMITIES: 2+ peripheral pulses, no lower extremity edema and no calf tenderness. NEUROLOGIC EXAMINATION: Patient is awake, alert and oriented x3. Sensitivity to light ASSESSMENT Headache Acute CVA- MRI report with 2 tiny acute lacunar infarcts in the right parietal lobe Elevated troponin, not indicative of acute coronary syndrome, no EKG evidence of ischemia, patient without chest pain, normal echocardiogram Hypertensive Urgency History of CVA Dyslipidemia History of aortic aneurysm PLAN Neuro following, requesting SHANTE Plan for SHANTE tomorrow with Dr. Royal I have discussed the risks, benefits and alternative therapies for the above- mentioned procedure and for both sedation/analgesia if indicated, as they pertain to this patient. The patient has indicated understanding and acceptance of the risks and procedures discussed. Questions have been answered appropriately and he is agreeable to move forward with the above-stated procedure. NPO after midnight Continue cardizem 240mg daily and Valsartan 160mg BID Continue patient's home medication statin and plavix, imdur, hydralazine Further recommendations based on clinical course. Nurse Practitioner note has been reviewed, I agree with a documented findings an d plan of care. Patient was seen and examined Objective - Vital Signs Vital signs: Vital Signs Temp 98.2 F 10/29/20 03:56 Pulse 64 10/29/20 03:56 Resp 17 10/29/20 03:56 BP 138/69 10/29/20 03:56 Pulse Ox 94 L 10/29/20 03:56 Intake & Output 10/28/20 10/29/20 10/29/20 18:59 06:59 18:59 Intake Total 240 Output Total 800 950 Balance -800 -710 Weight 71.9 kg Intake: Oral 240 Output: Urine 800 950 Other: Voiding Method Toilet Toilet # Voids 1 1 - Labs CBC & Chem 7: 10/27/20 14:41 10/27/20 14:41 Labs: Abnormal Lab Results - Last 24 Hours (Table) 10/28/20 Range/Units 16:52 Urine Appearance Turbid H (Clear) Urine Protein 1+ H (Negative) Urine Blood Large H (Negative) Ur Leukocyte Esterase Large H (Negative) Urine RBC >182 H (0-5) /hpf Urine WBC >182 H (0-5) /hpf Urine WBC Clumps Few H (None) /hpf Urine Mucus Rare H (None) /hpf Microbiology - Last 24 Hours (Table) 10/28/20 20:43 Urine Culture - Preliminary Urine,Clean Catch
--- NOTE | 2020-10-29 18:22 | P.PN ---
Subjective Progress Note Date: 10/29/20 The patient is seen at bedside and she feels she is doing better. She felt her headaches is much better in the afternoon compared to morning. She denies of any new neurological problems. Objective - Vital Signs Vital signs: Vital Signs Temp 97.6 F 10/29/20 16:39 Pulse 55 L 10/29/20 16:39 Resp 16 10/29/20 16:39 BP 142/63 10/29/20 16:39 Pulse Ox 94 L 10/29/20 16:39 Intake & Output 10/28/20 10/29/20 10/29/20 18:59 06:59 18:59 Intake Total 240 Output Total 800 950 Balance -800 -710 Weight 71.9 kg Intake: Oral 240 Output: Urine 800 950 Other: Voiding Method Toilet Toilet # Voids 1 1 - Exam GENERAL: The patient is lying in bed and is mild acute distress. NEUROLOGICAL: Higher mental function: The patient is awake, alert, oriented to self, place and time. Patient is following commands. No aphasia and no neglect. Cranial nerves: The pupils are round, equal and reactive to light and accommodation. Visual burr are full to confrontation throughout. Extraocular movement is intact no nystagmus is noted. Facial sensation is normal to touch throughout. The facial strength is normal throughout. Hearing is mildly decreased bilaterally to hand rub. Tongue is midline and moved [id number] without any difficulty. No dysarthria is noted. Shoulder shrug is normal bilaterally. Motor: Gait is deferred. The strength is 5 over 5 throughout. Normal tone and bulk. Cerebellum: Normal finger to nose heel to escobar bilaterally. Sensation: Sensation is normal to touch throughout. Reflexes (right/left): 3+ over bilateral brachioradialis. Otherwise the rest of uppers are 2-3+. Lowers 2+ throughout. Plantars are mute bilaterally (initially was upgoing on the left but repeated was mute). WORK-UP: * CT of the head is reported as no acute intracranial process. Nobody reported it is mentioned the patient has encephalomalacia over the right cerebellum, right parietal lobe and medial left occipital lobe as well as advance burden of decreased attenuation within the bilateral cerebral white matter likely chronic small vessel change. The patient CT of the head on the 2020 it is reported the patient had right sided posterior fossa finding unchanged consistent with old infarct versus large arachnoid cyst and it's unchanged as since [address] findings are the same as in the 2020 findings. * MRI brain is reported as 2 tiny acute lacunar infarct in the right parietal lobe current study. Background mild to moderate diffuse cerebral atrophy and moderate to advanced chronic small vessel ischemic changes redemonstrated. Background stable prominence CSF posterior aspect right posterior fossa favoring arachnoid cyst over old encephalomalacia. I spoke with the reading radiologist and he felt there is also additional 2-3 mm punctate acute lacunar infarct suspected over the left occipital region. * MRA of the head is reported as no aneurysm of the level of the [place]. No significant change from prior CTA study * Carotid duplex was reported as there is antegrade flow in the vertebral arteries. Images and measurements suggest less than 50% stenosis in both internal carotid arteries. There is bilateral plaque formation. * 2-D echo was reported as left ventricle size is normal. Ejection fraction of 55-60%. Intra-arterial an intraventricular septum is intact. - Labs CBC & Chem 7: 10/27/20 14:41 10/27/20 14:41 Labs: Microbiology - Last 24 Hours (Table) 10/28/20 20:43 Urine Culture - Preliminary Urine,Clean Catch Assessment and Plan Assessment: Acute ischemic stroke (2 lacunar over the right parietal and one on left occipi maximino). Rule out cardioembolic. Patient NIH stroke scale was a 0 on examination and did not get IV TPA since the she did not present with strokelike symptoms (but stroke was found incidentally on MRI). Cephaglia: Seems component of uncontrolled hypertension and migraine headache. History of stroke (on imaging patient has old left medial occipital, right parietal). 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 Low normal Vitamin B12 (319) Hypertensive urgency. Elevated troponin History of minor closed head injury Hyperlipidemia Plan: * I stopped Plavix and I started the patient on Brilinta, 90 mg 1 tablet twice a day. Patient to continue aspirin 81mg daily. Continue lipitor 40mg qhs. * Spoke with cardiology about getting SHANTE to rule out cardioemboli (schedule tomorrow). * Every 4 hours neuro checks * On cardiac monitoring. * Per cardiology nurse practitioner, she stated patient has a loop recorder but will look into it. * Pending lipid panel and hemoglobin A1c. * Because of low normal vitamin B12 I placed the patient on the vitamin B12 1000 g daily. * Continue Propanolol 30mg bid (for blood pressure control and has effect on m igraine prophylaxis). For migraine abortive, on Gabapentin 100mg 1 tab bid PRN. * Recommend better control of her hypertension which can have an effect on her headaches. Will defer management to the primary team. * Will Defer the rest of the medical management to the primary team. * Upon discharge the patient needs to follow-up with a neurologist as an outpatient within 1-2 weeks. The plan is discussed with the patient's nurse. Jose Yanez MD Neuro-Hospitalist. Time with Patient: Less than 30
[2020-10-29 19:32] LABS: Chol/HDL Ratio 3.07; LDL Cholesterol,Calculated 54.4 mg/dL (0.0-131.0); VLDL Calculation 30.6 mg/dL (5.00-40.00)
[2020-10-29] MEDS: MICONAZOLE 2% VAGINAL CREAM 45 GM TUBE/KIT VAGINAL SCH (20:35)
[2020-10-30] MEDS: ASPIRIN 81 MG PO SCH (09:39)
[2020-10-30] MEDS: hydrALAZINE HCL 50 MG TAB PO SCH (09:39)
[2020-10-30] MEDS: TICAGRELOR 90 MG TAB PO SCH (09:39)
[2020-10-30] MEDS: ATORVASTATIN 40 MG TAB PO SCH (09:39)
[2020-10-30] MEDS: FENOFIBRATE 160 MG TAB PO SCH (09:39)
[2020-10-30] MEDS: DILTIAZEM CD 240 MG CAP.ER.24H PO SCH (09:40)
[2020-10-30] MEDS: VALSARTAN 160 MG TAB PO SCH (09:40)
[2020-10-30 10:16] VITALS: RESP 16
[2020-10-30] MEDS ORDERED: IV FLUID CONTINUATION 1,000 ML IV ONE (12:00)
[2020-10-30] MEDS ORDERED: fentaNYL (PF) 50 MCG/ML 2 ML AMP ONE (12:05)
[2020-10-30] MEDS ORDERED: BENZOCAINE SPRAY 1 CAN MUCOUS MEM ONE (12:17)
[2020-10-30] MEDS ORDERED: MIDAZOLAM 2 MG/2 ML VIAL IV ONE (12:17)
[2020-10-30] MEDS ORDERED: fentaNYL (PF) 50 MCG/ML 2 ML AMP IV ONE (12:17)
--- NOTE | 2020-10-30 13:34 | P.TEE ---
Description of Procedure(s): Procedure performed: Transesophageal Echocardiogram with color flow doppler, pulsed wave doppler and continuous wave doppler, moderate conscious sedation Moderate conscious sedation: Moderate conscious sedation was supplied with direct supervision of myself using Versed and Fentanyl. Complications: none Indications: Cardiac source of emboli History: She has a pleasant 79-year-old female who presented with headache, uncontrolled high blood pressure, some difficulty swallowing and some confusion and was found to have a stroke by MRI. Therefore SHANTE was recommended by neurology to rule out cardiac source of emboli. PROCEDURE: After the risks, benefits and alternatives of the above mentioned procedure was explained in detail with the patient, informed consent was obtained. Patient was brought to the lab in a fasting state. Patient was given IV Versed and Fentanyl for sedation. The throat was sprayed with Hurricane to anesthetize the throat. A lubricated Omni probe was then introduced into the esophagus and stomach and multiple views were obtained. 2D echo with color flow doppler, pulsed wave doppler and continuous wave doppler was utilized. Agitated saline bubbles were injected to assess for any intra-atrial shunt. The probe was then removed. Patient tolerated the procedure well. Patient was transfer red to the post procedure area in stable and satisfactory condition. FINDINGS: 1. The aortic valve is cuspid and has mild aortic sclerosis with mild to moderate aortic regurgitation. 2. The mitral valve appears be normal with mild mitral regurgitation. 3. Tricuspid valve appears to be normal. 4. The interatrial septum is intact. No evidence of PFO. 5. Left atrial appendage is free of clot. 6. Left ventricular size and function appears to be normal with ejection fraction 55-60% 7. The ascending aortic root is mildly dilated at 4.0 cm
--- NOTE | 2020-10-30 16:06 | PN ---
PROGRESS NOTE Blood pressure 130s to 50s systolic. She has been cleared for discharge by Cardiology and Neurology. She is on Cardizem CD 240 daily for blood pressure as well as Apresoline 100 mg b.i.d., Brilinta 90 b.i.d., Diovan 160 b.i.d., aspirin 81 mg daily, Xanax 0.25 b.i.d. She had a transesophageal echo which was negative today. Cardiovascular S1-S2. Lungs clear. GI soft. She is sitting up in bed, moving 4 extremities. She is alert and oriented x3, giving appropriate answers. She had a little bit of confusion over the last 2 days, but it is improving. Plan is to possibly send her home today to follow up as an outpatient. Echocardiogram was normal, as mentioned. Blood pressure is more stable today. She is maintained on aspirin, atorvastatin, Cardizem, hydralazine, Propranolol, Brilinta, valsartan. Follow up as an outpatient. She appears to be stable at this time. Continue home medications of statin, Plavix, Imdur, hydralazine, valsartan, Cardizem. Prognosis is guarded. MMODL / IJN: [id number] /
[2020-10-30 16:15] VITALS: BP 104/65; PULSE 72; TEMP 98.4
== END 2020-10-30 16:43 | disposition home or self-care (01) | DRG 65 ==
LOC: EC 13:38 → 3SCARD 20:51 → OBSVTOIN 10-28 16:05 → 3SCARD 10-28 17:47
PROVIDERS: ADMIT Family Medicine; ATTEND Family Medicine
PROC: B246ZZ4 Ultrasonography of Right and Left Heart, Transesophageal (ICD-10-PCS; principal; 2020-10-30 09:25)
DX: I63.81 Other cerebral infarction due to occlusion or stenosis of small artery (principal); N39.0 Urinary tract infection, site not specified; G43.909 Migraine, unspecified, not intractable, without status migrainosus; Z20.822 Contact with and (suspected) exposure to COVID-19; R00.1 Bradycardia, unspecified; I16.0 Hypertensive urgency; E03.9 Hypothyroidism, unspecified; M19.90 Unspecified osteoarthritis, unspecified site; I10 Essential (primary) hypertension; E78.5 Hyperlipidemia, unspecified; R77.8 Other specified abnormalities of plasma proteins; G93.89 Other specified disorders of brain; R29.700 NIHSS score 0; Z79.02 Long term (current) use of antithrombotics/antiplatelets; Z79.82 Long term (current) use of aspirin; Z79.890 Hormone replacement therapy; Z79.899 Other long term (current) drug therapy; Z86.69 Personal history of other diseases of the nervous system and sense organs; Z86.73 Personal history of transient ischemic attack (TIA), and cerebral infarction without residual deficits; Z86.79 Personal history of other diseases of the circulatory system; Z87.891 Personal history of nicotine dependence; Z88.8 Allergy status to other drugs, medicaments and biological substances; Z98.51 Tubal ligation status; Z87.820 Personal history of traumatic brain injury; Z82.49 Family history of ischemic heart disease and other diseases of the circulatory system; Z83.2 Family history of diseases of the blood and blood-forming organs and certain disorders involving the immune mechanism; Z82.3 Family history of stroke
CPT/HCPCS: 36415; 70450; 70544; 70553; 80053; 80061; 81001; 81003; 82607; 83036; 84484; 85025; 85610; 85730; 87077; 87086; 87186; 87635; 93306; 93312; 93320; 93325; 93880; 96365; 96375; 99285

== ENCOUNTER 2020-12-23 09:40 | Emergency (ER) | payer MEDICARE ==
[2020-12-23 09:47] VITALS: TEMP 97.2
[2020-12-23] MEDS ORDERED: LORazepam 2 MG/ML INJ IV STA (09:58)
[2020-12-23] MEDS ORDERED: SODIUM CHLORIDE 0.9% 500 ML 500 ML IV ONE (09:59)
[2020-12-23 10:46] LABS: Basophils % (A) 1 %; Eosinophils # (A) 0.1 k/uL (0-0.7); Eosinophils % (A) 1 %; HCT 41.3 % (34.0-46.0); HGB 13.1 gm/dL (11.4-16.0); Lymphocytes # (A) 1.6 k/uL (1.0-4.8); Lymphocytes % (A) 30 %; MCH 28.6 pg (25.0-35.0); MCHC 31.8 g/dL (31.0-37.0); MCV 89.9 fL (80.0-100.0); Mean Platelet Volume 7.9; Monocytes # (A) 0.3 k/uL (0-1.0); Monocytes % (A) 5 %; Neutrophils # (A) 3.2 k/uL (1.3-7.7); Neutrophils % (A) 60 %; Platelet Count 169 k/uL (150-450); RDW 14.2 % (11.5-15.5); WBC 5.4 k/uL (3.8-10.6)
[2020-12-23 11:04] LABS: Albumin 4.4 g/dL (3.5-5.0); Calcium 9.7 mg/dL (8.4-10.2); Potassium 4.3 mmol/L (3.5-5.1); Total Bilirubin 0.7 mg/dL (0.2-1.3); Total Protein 7.3 g/dL (6.3-8.2)
--- NOTE | 2020-12-23 11:19 | XR ---
EXAMINATION TYPE: XR chest 2V DATE OF EXAM: 12/23/2020 COMPARISON: Chest x-ray October 20, 2020. Chest CT September 06, 2019 HISTORY: Difficulty breathing. Weakness and chills. TECHNIQUE: Frontal and lateral views of the chest are obtained. FINDINGS: There is mild emphysematous change without suspicious focal air space opacity, pleural eff usion, or pneumothorax seen. The cardiac silhouette size is stable and within normal limits atherosc lerotic and ectatic thoracic aorta redemonstrated. Overlying loop recorder redemonstrated. Surgical c hanges at level of diaphragmatic hiatus again seen. The osseous structures remain demineralized. IMPRESSION: No acute cardiopulmonary process. No significant change from prior.
--- NOTE | 2020-12-23 11:26 | ED ---
General Adult HPI - General Chief complaint: Weakness Stated complaint: weakness Time Seen by Provider: 12/23/20 09:45 Source: patient, RN notes reviewed, old records reviewed Mode of arrival: wheelchair Limitations: no limitations - History of Present Illness Initial comments: This is a 80-year-old female presents emergency Department complaining that she is shaking and feels cold. Patient also complains that she thinks she might have urinary tract infection. Patient states she has a history of stroke and anemia in the past. Patient denies any strokelike symptoms. Patient denies any black or bloody stools or blood in the urine. Patient denies any fever or chills. Patient denies chest pain difficult breathing shortness breath per patient denies any abdominal pain patient denies any nausea vomiting diarrhea. Patient states she has a history of anxiety. - Related Data Home Medications Medication Instructions Recorded Confirmed Levothyroxine Sodium [Synthroid] 75 mcg PO DAILY 09/04/15 10/27/20 Citalopram Hydrobromide [CeleXA] 20 mg PO DAILY 09/02/17 10/27/20 Diltiazem HCl [Diltiazem HCl 24Hr 240 mg PO DAILY 09/02/17 10/27/20 ER (LA)] Fenofibrate 160 mg PO DAILY 09/02/17 10/27/20 Atorvastatin Calcium [Lipitor] 40 mg PO DAILY 10/20/20 10/27/20 Vitamin E 400 unit PO DAILY 10/20/20 10/27/20 Previous Rx's Medication Instructions Recorded ALPRAZolam [Xanax] 0.25 mg PO DAILY PRN tab 10/24/20 Potassium Chloride ER [K-Dur 20] 20 meq PO DAILY 90 Days #90 tablet 10/24/20 hydrALAZINE HCL [Apresoline] 100 mg PO BID 90 Days #180 tab 10/24/20 Aspirin 81 mg PO DAILY tab 10/30/20 Gabapentin [Neurontin] 100 mg PO BID PRN cap 10/30/20 Ticagrelor [Brilinta] 90 mg PO BID 30 Days #60 tab 10/30/20 Valsartan [Diovan] 160 mg PO BID 30 Days #60 tab 10/30/20 Allergies Allergy/AdvReac Type Severity Reaction Status Date / Time losartan AdvReac shaking Verified 12/23/20 09:46 hands/headache Review of Systems ROS Statement: Those systems with pertinent positive or pertinent negative responses have been documented in the HPI. ROS Other: All systems not noted in ROS Statement are negative. Past Medical History Past Medical History: CVA/TIA, Hyperlipidemia, Hypertension, Osteoarthritis (OA), Thyroid Disorder Additional Past Medical History / Comment(s): EGD History of Any Multi-Drug Resistant Organisms: None Reported Past Surgical History: Cholecystectomy, Tubal Ligation Additional Past Surgical History / Comment(s): LEFT KNEE SURGERY Past Anesthesia/Blood Transfusion Reactions: Blood Transfusion Reaction, Motion Sickness Additional Past Anesthesia/Blood Transfusion Reaction / Comment(s): "'LOSS OF CONSCIOUSNESS WITH A BLODD TRANSFUSION REACTION -CAN TAKE PLASMA SHOTS" PER PATIENT Past Psychological History: Anxiety Smoking Status: Former smoker Past Alcohol Use History: Rare Past Drug Use History: None Reported - Past Family History Mother Family Medical History: Blood Disorder, CVA/TIA, Hypertension, Myocardial Infarction (ID) Additional Family Medical History / Comment(s): MASSIVE ID Father Family Medical History: Cancer Additional Family Medical History / Comment(s): COLON CA General Exam - General Exam Comments Initial Comments: GENERAL: Patient is well-developed and well-nourished. Patient is nontoxic and well- hydrated and is in mild distress. Patient has a normal temperature ENT: Neck is soft and supple. No significant lymphadenopathy is noted. Oropharynx is clear. Moist mucous membranes. Neck has full range of motion without eliciting any pain. EYES: The sclera were anicteric and conjunctiva were pink and moist. Extraocular movements were intact and pupils were equal round and reactive to light. Eyelids were unremarkable. PULMONARY: Unlabored respirations. Good breath sounds bilaterally. No audible rales rhonchi or wheezing was noted. CARDIOVASCULAR: There is a regular rate and rhythm without any murmurs gallops or rubs. ABDOMEN: Soft and nontender with normal bowel sounds. No palpable organomegaly was noted. There is no palpable pulsatile mass. SKIN: Skin is clear with no lesions or rashes and otherwise unremarkable. NEUROLOGIC: Patient is alert and oriented x3. Cranial nerves II through XII are grossly intact. Motor and sensory are also intact. Normal speech, volume and content. Symmetrical smile. MUSCULOSKELETAL: Normal extremities with adequate strength and full range of motion. LYMPHATICS: No significant lymphadenopathy is noted PSYCHIATRIC: Patient is very anxious Limitations: no limitations Course Vital Signs 12/23/20 09:41 Temperature 97.2 F L Pulse Rate 99 Respiratory 28 H Rate Blood Pressure 124/67 O2 Sat by Pulse 98 Oximetry Medical Decision Making - Medical Decision Making EKG shows normal sinus rhythm with a lot of artifact it 104 bpm QRS is 66 QT interval 356 QTC is 468. Artifact secondary to patient shaking. No obvious ST segment elevation can be seen Chest x-ray shows no acute abnormality. Patient received 1 mg of Ativan. Patient slept for an hour and a half to 2 hours. I went back in and reevaluated the patient she had no complaints and felt back to her baseline. - Lab Data Result diagrams: 12/23/20 10:26 12/23/20 10:26 Lab Results 12/23/20 12/23/20 12/23/20 Range/Units 10:26 10:26 10:26 WBC 5.4 (3.8-10.6) k/uL RBC 4.60 (3.80-5.40) m/uL Hgb 13.1 (11.4-16.0) gm/dL Hct 41.3 (34.0-46.0) % MCV 89.9 (80.0-100.0) fL MCH 28.6 (25.0-35.0) pg MCHC 31.8 (31.0-37.0) g/dL RDW 14.2 (11.5-15.5) % Plt Count 169 (150-450) k/uL MPV 7.9 Neutrophils % 60 % Lymphocytes % 30 % Monocytes % 5 % Eosinophils % 1 % Basophils % 1 % Neutrophils # 3.2 (1.3-7.7) k/uL Lymphocytes # 1.6 (1.0-4.8) k/uL Monocytes # 0.3 (0-1.0) k/uL Eosinophils # 0.1 (0-0.7) k/uL Basophils # 0.0 (0-0.2) k/uL Sodium 133 L (137-145) mmol/L Potassium 4.3 (3.5-5.1) mmol/L Chloride 102 (98-107) mmol/L Carbon Dioxide 18 L (22-30) mmol/L Anion Gap 13 mmol/L BUN 21 H (7-17) mg/dL Creatinine 0.89 (0.52-1.04) mg/dL Est GFR (CKD-EPI)AfAm 72 (>60 ml/min/1.73 sqM) Est GFR (CKD-EPI)NonAf 62 (>60 ml/min/1.73 sqM) Glucose 111 H (74-99) mg/dL Calcium 9.7 (8.4-10.2) mg/dL Total Bilirubin 0.7 (0.2-1.3) mg/dL AST 28 (14-36) U/L ALT 20 (4-34) U/L Alkaline Phosphatase 79 (38-126) U/L Total Protein 7.3 (6.3-8.2) g/dL Albumin 4.4 (3.5-5.0) g/dL Urine Color Yellow Urine Appearance Clear (Clear) Urine pH 8.5 H (5.0-8.0) Ur Specific [place] 1.016 (1.001-1.035) Urine Protein Negative (Negative) Urine Glucose (UA) Negative (Negative) Urine Ketones Negative (Negative) Urine Blood Negative (Negative) Urine Nitrite Negative (Negative) Urine Bilirubin Negative (Negative) Urine Urobilinogen <2.0 (<2.0) mg/dL Ur Leukocyte Esterase Negative (Negative) Disposition Clinical Impression: Anxiety Disposition: HOME SELF-CARE Condition: Good Instructions (If sedation given, give patient instructions): Anxiety (ED) Is patient prescribed a controlled substance at d/c from ED?: No Referrals: Ottoniel Garcia MD [Primary Care Provider] - 1-2 days Time of Disposition: 12:45
[2020-12-23 12:01] LABS: Appearance,Urine Clear (Clear); Bilirubin,Urine Negative (Negative); Blood,Urine Negative (Negative); Color,Urine Yellow; Glucose,Urine (UA) Negative (Negative); Ketones,Urine Negative (Negative); Leukocyte Esterase,Urine Negative (Negative); Nitrite,Urine Negative (Negative); PH, Urine 8.5 (5.0-8.0); Protein,Urine Negative (Negative); Specific Gravity,Urine 1.016 (1.001-1.035); Urobilinogen,Urine <2.0 mg/dL (<2.0)
[2020-12-23 13:11] VITALS: BP 119/71; PULSE 82; RESP 18
== END 2020-12-23 12:53 | disposition home or self-care (01) ==
LOC: EC 09:40
DX: F41.9 Anxiety disorder, unspecified (principal); I10 Essential (primary) hypertension; E78.5 Hyperlipidemia, unspecified; M19.90 Unspecified osteoarthritis, unspecified site; E07.9 Disorder of thyroid, unspecified; Z79.82 Long term (current) use of aspirin; Z86.73 Personal history of transient ischemic attack (TIA), and cerebral infarction without residual deficits; Z90.49 Acquired absence of other specified parts of digestive tract; Z98.51 Tubal ligation status; Z87.891 Personal history of nicotine dependence
CPT/HCPCS: 99284; 96374; 36415; 93005; 80053; 85025; 81003; 87040; 71046; J2060

== ENCOUNTER 2021-03-26 12:28 | Emergency (ER) | payer MEDICARE ==
[2021-03-26] MEDS ORDERED: LORazepam 2 MG/ML INJ IV STA (12:40)
[2021-03-26] MEDS ORDERED: SODIUM CHLORIDE 0.9% 500 ML 500 ML IV ONE (12:40)
--- NOTE | 2021-03-26 13:36 | ED ---
General Adult HPI - General Chief complaint: Abdominal Pain Stated complaint: UTI Time Seen by Provider: 03/26/21 12:29 Source: patient, RN notes reviewed, old records reviewed Mode of arrival: ambulatory Limitations: no limitations - History of Present Illness Initial comments: 72-year-old female presenting with dysuria and urinary frequency. Patient states she had a normal urination at a proximally 6 AM in terms of volume but this was associated with discomfort. She's had multiple bladder infections and has required catheterization in the past. She was told by her urologist that she should not have a catheter placed. She denies abdominal pain. Denies vomiting. Denies fever. - Related Data Home Medications Medication Instructions Recorded Confirmed Levothyroxine Sodium [Synthroid] 75 mcg PO DAILY 09/04/15 03/07/21 Citalopram Hydrobromide [CeleXA] 20 mg PO DAILY 09/02/17 03/07/21 Diltiazem HCl [Diltiazem HCl 24Hr 240 mg PO DAILY 09/02/17 03/07/21 ER ([place])] Fenofibrate 160 mg PO DAILY 09/02/17 03/07/21 Atorvastatin Calcium [Lipitor] 40 mg PO DAILY 10/20/20 03/07/21 Vitamin E 400 unit PO DAILY 10/20/20 03/07/21 Previous Rx's Medication Instructions Recorded ALPRAZolam [Xanax] 0.25 mg PO DAILY PRN tab 10/24/20 Potassium Chloride ER [K-Dur 20] 20 meq PO DAILY 90 Days #90 tablet 10/24/20 hydrALAZINE HCL [Apresoline] 100 mg PO BID 90 Days #180 tab 10/24/20 Aspirin 81 mg PO DAILY tab 10/30/20 Gabapentin [Neurontin] 100 mg PO BID PRN cap 10/30/20 Ticagrelor [Brilinta] 90 mg PO BID 30 Days #60 tab 10/30/20 Valsartan [Diovan] 160 mg PO BID 30 Days #60 tab 10/30/20 Levofloxacin [Levaquin] 500 mg PO DAILY 1 Days #1 tab 03/26/21 Allergies Allergy/AdvReac Type Severity Reaction Status Date / Time losartan AdvReac shaking Verified 03/26/21 12:36 hands/headache Review of Systems ROS Statement: Those systems with pertinent positive or pertinent negative responses have been documented in the HPI. ROS Other: All systems not noted in ROS Statement are negative. Past Medical History Past Medical History: CVA/TIA, Hyperlipidemia, Hypertension, Osteoarthritis (OA), Thyroid Disorder Additional Past Medical History / Comment(s): EGD. ANEMIA. History of Any Multi-Drug Resistant Organisms: None Reported Past Surgical History: Cholecystectomy, Tubal Ligation Additional Past Surgical History / Comment(s): LEFT KNEE SURGERY Past Anesthesia/Blood Transfusion Reactions: Blood Transfusion Reaction, Motion Sickness Additional Past Anesthesia/Blood Transfusion Reaction / Comment(s): "'LOSS OF CONSCIOUSNESS WITH A BLODD TRANSFUSION REACTION -CAN TAKE PLASMA SHOTS" PER PATIENT Past Psychological History: Anxiety Smoking Status: Former smoker Past Alcohol Use History: None Reported Past Drug Use History: None Reported - Past Family History Father Family Medical History: Cancer Mother Family Medical History: Cancer Additional Family Medical History / Comment(s): LEUKEMIA General Exam Limitations: no limitations General appearance: alert, anxious Head exam: Present: atraumatic, normocephalic Eye exam: Present: normal appearance, PERRL ENT exam: Present: normal exam Neck exam: Present: normal inspection. Absent: tenderness, meningismus Respiratory exam: Present: normal lung sounds bilaterally. Absent: respiratory distress, wheezes Cardiovascular Exam: Present: regular rate, normal rhythm GI/Abdominal exam: Present: soft. Absent: distended, tenderness, guarding, rebound External exam: Present: normal external exam Neurological exam: Present: alert, CN II-XII intact Psychiatric exam: Present: anxious Skin exam: Present: warm, dry, intact. Absent: cyanosis, diaphoretic Course Vital Signs 03/26/21 12:33 Temperature 97.8 F Pulse Rate 82 Respiratory 24 Rate Blood Pressure 145/87 O2 Sat by Pulse 97 Oximetry Medical Decision Making - Medical Decision Making 72-year-old female with dysuria and urinary frequency and urgency history of UTI. Patient's is afebrile. She is somewhat anxious but otherwise well- appearing. Abdomen soft nontender nondistended. She has a normal CBC normal CMP, she has evidence of urinary tract infection with greater than 182 white cells. She's given a dose of Rocephin in the emergency department. She will be started on oral antibiotics. Return parameters discussed. - Lab Data Result diagrams: 03/26/21 13:00 03/26/21 13:00 Lab Results 03/26/21 03/26/21 03/26/21 Range/Units 13:00 13:00 13:00 WBC 7.9 (3.8-10.6) k/uL RBC 4.53 (3.80-5.40) m/uL Hgb 12.7 (11.4-16.0) gm/dL Hct 39.1 (34.0-46.0) % MCV 86.3 (80.0-100.0) fL MCH 28.0 (25.0-35.0) pg MCHC 32.5 (31.0-37.0) g/dL RDW 16.1 H (11.5-15.5) % Plt Count 191 (150-450) k/uL MPV 9.3 Neutrophils % 67 % Lymphocytes % 23 % Monocytes % 5 % Eosinophils % 1 % Basophils % 0 % Neutrophils # 5.3 (1.3-7.7) k/uL Lymphocytes # 1.8 (1.0-4.8) k/uL Monocytes # 0.4 (0-1.0) k/uL Eosinophils # 0.1 (0-0.7) k/uL Basophils # 0.0 (0-0.2) k/uL Anisocytosis Slight Sodium 137 (137-145) mmol/L Potassium 4.5 (3.5-5.1) mmol/L Chloride 104 (98-107) mmol/L Carbon Dioxide 25 (22-30) mmol/L Anion Gap 8 mmol/L BUN 29 H (7-17) mg/dL Creatinine 0.82 (0.52-1.04) mg/dL Est GFR (CKD-EPI)AfAm 79 (>60 ml/min/1.73 sqM) Est GFR (CKD-EPI)NonAf 69 (>60 ml/min/1.73 sqM) Glucose 102 H (74-99) mg/dL Calcium 9.6 (8.4-10.2) mg/dL Total Bilirubin 0.7 (0.2-1.3) mg/dL AST 49 H (14-36) U/L ALT 41 H (4-34) U/L Alkaline Phosphatase 56 (38-126) U/L Total Protein 7.2 (6.3-8.2) g/dL Albumin 4.3 (3.5-5.0) g/dL Urine Color Yellow Urine Appearance Cloudy H (Clear) Urine pH 7.5 (5.0-8.0) Ur Specific [place] 1.027 (1.001-1.035) Urine Protein 1+ H (Negative) Urine Glucose (UA) Negative (Negative) Urine Ketones Negative (Negative) Urine Blood Small H (Negative) Urine Nitrite Negative (Negative) Urine Bilirubin Negative (Negative) Urine Urobilinogen <2.0 (<2.0) mg/dL Ur Leukocyte Esterase Large H (Negative) Urine RBC 101 H (0-5) /hpf Urine WBC >182 H (0-5) /hpf Ur Squamous Epith Cells <1 (0-4) /hpf Hyaline Casts 4 H (0-2) /lpf Urine Mucus Rare H (None) /hpf Disposition Clinical Impression: UTI (urinary tract infection) Disposition: HOME SELF-CARE Condition: Fair Instructions (If sedation given, give patient instructions): Urinary Tract Infection in Women (ED) Prescriptions: Levofloxacin [Levaquin] 500 mg PO DAILY 1 Days #1 tab Is patient prescribed a controlled substance at d/c from ED?: No Referrals: Ottoniel Garcia MD [Primary Care Provider] - 1-2 days Time of Disposition: 14:36
[2021-03-26 13:50] LABS: Albumin 4.3 g/dL (3.5-5.0); Calcium 9.6 mg/dL (8.4-10.2); Potassium 4.5 mmol/L (3.5-5.1); Total Bilirubin 0.7 mg/dL (0.2-1.3); Total Protein 7.2 g/dL (6.3-8.2)
[2021-03-26 13:57] LABS: Appearance,Urine Cloudy (Clear); Bilirubin,Urine Negative (Negative); Blood,Urine Small (Negative); Color,Urine Yellow; Glucose,Urine (UA) Negative (Negative); Hyaline Casts,Urine 4 /lpf (0-2); Ketones,Urine Negative (Negative); Leukocyte Esterase,Urine Large (Negative); Mucus,Urine Rare /hpf; Nitrite,Urine Negative (Negative); PH, Urine 7.5 (5.0-8.0); Protein,Urine 1+ (Negative); RBC,Urine 101 /hpf (0-5); Specific Gravity,Urine 1.027 (1.001-1.035); Squamous Epithelial Cell,Urine <1 /hpf (0-4); Urobilinogen,Urine <2.0 mg/dL (<2.0); WBC,Urine >182 /hpf (0-5)
[2021-03-26 14:01] LABS: Anisocytosis Slight; Basophils % (A) 0 %; Eosinophils # (A) 0.1 k/uL (0-0.7); Eosinophils % (A) 1 %; HCT 39.1 % (34.0-46.0); HGB 12.7 gm/dL (11.4-16.0); Lymphocytes # (A) 1.8 k/uL (1.0-4.8); Lymphocytes % (A) 23 %; MCHC 32.5 g/dL (31.0-37.0); MCV 86.3 fL (80.0-100.0); Mean Platelet Volume 9.3; Monocytes # (A) 0.4 k/uL (0-1.0); Monocytes % (A) 5 %; Neutrophils # (A) 5.3 k/uL (1.3-7.7); Neutrophils % (A) 67 %; Platelet Count 191 k/uL (150-450); RBC 4.53 m/uL (3.80-5.40); RDW 16.1 % (11.5-15.5); WBC 7.9 k/uL (3.8-10.6)
[2021-03-26] MEDS ORDERED: cefTRIAXone IN SWFI 1,000 MG/10 ML SYRINGE IVP STA (14:05)
[2021-03-26 14:43] VITALS: BP 133/75; PULSE 72; RESP 18; TEMP 98
== END 2021-03-26 14:58 | disposition home or self-care (01) ==
LOC: EC 12:28 → SUPCPDRO 12:28 → EC 14:58
DX: N39.0 Urinary tract infection, site not specified (principal); I10 Essential (primary) hypertension; E78.5 Hyperlipidemia, unspecified; M19.90 Unspecified osteoarthritis, unspecified site; F41.9 Anxiety disorder, unspecified; Z87.891 Personal history of nicotine dependence; Z79.82 Long term (current) use of aspirin; Z79.899 Other long term (current) drug therapy
CPT/HCPCS: 51798; 36415; 80053; 85025; 81001; 87086; 99284; 96374; 96375; 96361; J2060; J0696

== ENCOUNTER 2021-10-25 12:30 | Observation (INO) | payer MEDICARE ==
[2021-10-25] MEDS ORDERED: SODIUM CHLORIDE 0.9% 1,000 ML IV STA (12:55)
[2021-10-25] MEDS ORDERED: METOCLOPRAMIDE 5 MG/ML 2 ML VIAL IVP STA (12:56)
[2021-10-25] MEDS ORDERED: MECLIZINE 12.5 MG TAB PO STA (12:56)
--- NOTE | 2021-10-25 13:06 | ED ---
General Adult HPI - General Chief complaint: Dizziness Stated complaint: dizziness Time Seen by Provider: 10/25/21 12:40 Source: patient, EMS, RN notes reviewed Mode of arrival: EMS Limitations: no limitations - History of Present Illness Initial comments: Patient is a pleasant 80-year-old female presenting to the emergency department with concern with dizziness. Onset was this morning when she woke. Patient feels a spinning type sensation. Symptoms do worsen with opening eyes and upright position. A escobar does have history of similar symptoms previously. Patient does have history of strokes previously as well. Patient states dizziness has sometimes been associated with strokes and other times has not. Patient does have chronic right upper extremity weakness that is unchanged. No new weakness today. No confusion. - Related Data Home Medications Medication Instructions Recorded Confirmed Levothyroxine Sodium [Synthroid] 75 mcg PO DAILY 09/04/15 03/07/21 Citalopram Hydrobromide [CeleXA] 20 mg PO DAILY 09/02/17 03/07/21 Fenofibrate 160 mg PO DAILY 09/02/17 03/07/21 dilTIAZem HCL [dilTIAZem HCL 24Hr 240 mg PO DAILY 09/02/17 03/07/21 ER (LA)] Atorvastatin Calcium [Lipitor] 40 mg PO DAILY 10/20/20 03/07/21 Vitamin E 400 unit PO DAILY 10/20/20 03/07/21 Previous Rx's Medication Instructions Recorded ALPRAZolam [Xanax] 0.25 mg PO DAILY PRN tab 10/24/20 Potassium Chloride ER [K-Dur 20] 20 meq PO DAILY 90 Days #90 tablet 10/24/20 hydrALAZINE HCL [Apresoline] 100 mg PO BID 90 Days #180 tab 10/24/20 Aspirin 81 mg PO DAILY tab 10/30/20 Gabapentin [Neurontin] 100 mg PO BID PRN cap 10/30/20 Ticagrelor [Brilinta] 90 mg PO BID 30 Days #60 tab 10/30/20 Valsartan [Diovan] 160 mg PO BID 30 Days #60 tab 10/30/20 levoFLOXacin [Levaquin] 500 mg PO DAILY 1 Days #1 tab 03/26/21 levoFLOXacin [Levaquin] 500 mg PO DAILY 5 Days #5 tab 03/26/21 Allergies Allergy/AdvReac Type Severity Reaction Status Date / Time losartan AdvReac shaking Verified 03/26/21 12:36 hands/headache Review of Systems ROS Statement: Those systems with pertinent positive or pertinent negative responses have been documented in the HPI. ROS Other: All systems not noted in ROS Statement are negative. Constitutional: Denies: fever Eyes: Denies: eye pain ENT: Denies: ear pain Respiratory: Denies: cough Cardiovascular: Denies: chest pain Endocrine: Denies: fatigue Gastrointestinal: Denies: abdominal pain Genitourinary: Denies: dysuria Musculoskeletal: Denies: back pain Skin: Denies: rash Neurological: Reports: as per HPI, vertigo. Denies: headache, weakness Past Medical History Past Medical History: CVA/TIA, Hyperlipidemia, Hypertension, Osteoarthritis (OA), Thyroid Disorder Additional Past Medical History / Comment(s): EGD. ANEMIA. History of Any Multi-Drug Resistant Organisms: None Reported Past Surgical History: Cholecystectomy, Tubal Ligation Additional Past Surgical History / Comment(s): LEFT KNEE SURGERY Past Anesthesia/Blood Transfusion Reactions: Blood Transfusion Reaction, Motion Sickness Additional Past Anesthesia/Blood Transfusion Reaction / Comment(s): "'LOSS OF CONSCIOUSNESS WITH A BLODD TRANSFUSION REACTION -CAN TAKE PLASMA SHOTS" PER PATIENT Past Psychological History: Anxiety Smoking Status: Former smoker Past Alcohol Use History: None Reported Past Drug Use History: None Reported - Past Family History Father Family Medical History: Cancer Mother Family Medical History: Cancer Additional Family Medical History / Comment(s): LEUKEMIA General Exam Limitations: no limitations General appearance: alert, in no apparent distress Head exam: Present: normocephalic Eye exam: Present: normal appearance, PERRL, EOMI, nystagmus (Horizontal) ENT exam: Present: normal oropharynx Neck exam: Present: normal inspection Respiratory exam: Present: normal lung sounds bilaterally Cardiovascular Exam: Present: regular rate, normal rhythm GI/Abdominal exam: Present: soft. Absent: tenderness Extremities exam: Present: normal inspection Neurological exam: Present: alert, oriented X3, CN II-XII intact Expanded Neurological exam: Present: protecting the airway Speech: Present: fluid speech Cranial nerves: EOM's Intact: Normal, Facial Sensation: Normal Sensory exam: Upper Extremity Light Touch: Normal, Lower Extremity Light Touch: Normal Motor strength exam: RUE: 4 (Patient states normal), LUE: 5, RLE: 5, LLE: 5 Eye Response: (4) open spontaneously Motor Response: (6) obeys commands Verbal Response: (5) oriented Psychiatric exam: Present: normal affect, normal mood Skin exam: Present: normal color Course Vital Signs 10/25/21 12:38 Temperature 98.0 F Pulse Rate 68 Respiratory 18 Rate Blood Pressure 146/65 O2 Sat by Pulse 98 Oximetry EKG Findings - EKG Comments: EKG Findings:: Sinus rhythm at 73. OH 187. QRS 85. QT 368. QTC 394. Normal axis. Normal QRS. No acute ST change Medical Decision Making - Medical Decision Making Patient reevaluated and still symptomatically. Patient updated on results. Dr. Washburn has been paged for admission of this patient. - Lab Data Result diagrams: 10/25/21 13:03 10/25/21 13:03 Lab Results 10/25/21 10/25/21 10/25/21 Range/Units 13:03 13:03 13:03 WBC 7.6 (3.8-10.6) k/uL RBC 4.37 (3.80-5.40) m/uL Hgb 12.0 (11.4-16.0) gm/dL Hct 36.7 (34.0-46.0) % MCV 84.0 (80.0-100.0) fL MCH 27.4 (25.0-35.0) pg MCHC 32.6 (31.0-37.0) g/dL RDW 14.2 (11.5-15.5) % Plt Count 118 L (150-450) k/uL MPV 9.2 Neutrophils % 70 % Lymphocytes % 21 % Monocytes % 7 % Eosinophils % 0 % Basophils % 0 % Neutrophils # 5.3 (1.3-7.7) k/uL Lymphocytes # 1.6 (1.0-4.8) k/uL Monocytes # 0.5 (0-1.0) k/uL Eosinophils # 0.0 (0-0.7) k/uL Basophils # 0.0 (0-0.2) k/uL PT 11.4 (9.0-12.0) sec INR 1.1 (<1.2) APTT 30.3 H (22.0-30.0) sec Sodium 130 L (137-145) mmol/L Potassium 5.0 (3.5-5.1) mmol/L Chloride 97 L (98-107) mmol/L Carbon Dioxide 22 (22-30) mmol/L Anion Gap 11 mmol/L BUN 21 H (7-17) mg/dL Creatinine 0.81 (0.52-1.04) mg/dL Est GFR (CKD-EPI)AfAm 81 (>60 ml/min/1.73 sqM) Est GFR (CKD-EPI)NonAf 70 (>60 ml/min/1.73 sqM) Glucose 106 H (74-99) mg/dL Calcium 9.1 (8.4-10.2) mg/dL Total Bilirubin 0.6 (0.2-1.3) mg/dL AST 31 (14-36) U/L ALT 25 (4-34) U/L Alkaline Phosphatase 63 (38-126) U/L Total Protein 6.8 (6.3-8.2) g/dL Albumin 4.3 (3.5-5.0) g/dL - Radiology Data Radiology results: report reviewed (CT angios head and neck does not reveal acute abnormality. Old cerebellar and occipital infarcts.) Disposition Clinical Impression: Vertigo Disposition: ADMITTED IP TO THIS HOSP Is patient prescribed a controlled substance at d/c from ED?: No Referrals: Ottoniel Garcia MD [Primary Care Provider] - 1-2 days Time of Disposition: 15:08
[2021-10-25 13:23] LABS: Basophils % (A) 0 %; Eosinophils % (A) 0 %; HCT 36.7 % (34.0-46.0); Lymphocytes # (A) 1.6 k/uL (1.0-4.8); Lymphocytes % (A) 21 %; MCH 27.4 pg (25.0-35.0); MCHC 32.6 g/dL (31.0-37.0); Mean Platelet Volume 9.2; Monocytes # (A) 0.5 k/uL (0-1.0); Monocytes % (A) 7 %; Neutrophils # (A) 5.3 k/uL (1.3-7.7); Neutrophils % (A) 70 %; Platelet Count 118 k/uL (150-450); RBC 4.37 m/uL (3.80-5.40); RDW 14.2 % (11.5-15.5); WBC 7.6 k/uL (3.8-10.6)
[2021-10-25 13:39] LABS: INR 1.1 (<1.2); Partial Thromboplastin Time 30.3 sec (22.0-30.0); Prothrombin Time 11.4 sec (9.0-12.0)
[2021-10-25 13:49] LABS: Albumin 4.3 g/dL (3.5-5.0); Calcium 9.1 mg/dL (8.4-10.2); Total Bilirubin 0.6 mg/dL (0.2-1.3); Total Protein 6.8 g/dL (6.3-8.2)
--- NOTE | 2021-10-25 15:03 | CT ---
EXAMINATION TYPE: CT angio head neck DATE OF EXAM: 10/25/2021 COMPARISON: 10/27/2020 HISTORY: Vertigo with CVA history CT DLP: 1476.7 mGycm Automated exposure control for dose reduction was used. CONTRAST: Performed without and with IV Contrast, patient injected with 65 ml mL of Isovue 370. Images obtained from the uric arch to the vertex of the brain with the IV contrast. There is patchy hypodensity in the periventricular white matter. This is present in the centrum semio henri and internal capsule bilaterally. There is hypodensity in both occipital lobes consistent with o ld infarcts and encephalomalacia. There is large area of hypodensity right cerebellar hemisphere cons istent with old infarct. There is normal branching pattern of the great vessels on the aortic arch. Thoracic aorta is atheroma tous. There is arterial flow in the subclavian arteries bilaterally. There is arterial flow in the co mmon internal and external carotid arteries bilaterally. There is medial deviation of the internal ca rotid arteries which are retropharyngeal. There is wide patency of the carotid artery bifurcations. T here is arterial flow in both vertebral arteries. There is no evidence of carotid or vertebral artery aneurysm or dissection. There is arterial flow in the vertebral basilar artery system. There is arterial flow in the anterior middle and posterior cerebral arteries bilaterally. No evidenc e of intracranial aneurysm or neovascularity. No mass effect. No evidence of hemodynamic stenosis. Th ere is normal enhancement of the venous sinuses. There is hypodensity in the posterior fossa on the right side consistent with old right cerebellar he misphere infarct. There is hypodensity left and right occipital lobe consistent with old occipital in farcts. IMPRESSION: Negative CT angiogram of the neck. Negative CT angiogram of the brain. Old occipital and cerebellar i nfarcts. Chronic small vessel ischemia. Brain unchanged compared to old CT scan of 10/27/2020.
[2021-10-25] MEDS ORDERED: NALOXONE 0.4 MG/ML 1 ML VIAL IV PRN (15:11)
[2021-10-25] MEDS ORDERED: MECLIZINE 25 MG TAB PO PRN (15:12)
[2021-10-25] MEDS ORDERED: METOCLOPRAMIDE 5 MG/ML 2 ML VIAL IVP PRN (15:12)
[2021-10-25] MEDS ORDERED: ACETAMINOPHEN TAB 500 MG TAB PO STA (15:14)
[2021-10-25] MEDS: SODIUM CHLORIDE 0.9% 1,000 ML IV SCH (16:17)
[2021-10-25] MEDS ORDERED: ALPRAZolam 0.25 MG TAB PO PRN (21:58)
[2021-10-25] MEDS ORDERED: FENOFIBRATE 160 MG TAB PO SCH (22:00)
[2021-10-25] MEDS ORDERED: DILTIAZEM CD 240 MG CAP.ER.24H PO SCH (22:00)
[2021-10-25] MEDS ORDERED: NON FORMULARY DRUG (Fish Oil/Dha/Epa [Fish Oil 1,200 Mg Fish Oil] 1 EACH Capsule) PO SCH (22:00)
[2021-10-25] MEDS ORDERED: CHOLECALCIFEROL 25 MCG (1000 IU) TABLET PO SCH (22:00)
[2021-10-25] MEDS ORDERED: ATORVASTATIN 40 MG TAB PO SCH (22:00)
[2021-10-25] MEDS ORDERED: MAGNESIUM OXIDE 400 MG TAB PO SCH (22:15)
[2021-10-25] MEDS ORDERED: POTASSIUM CHLORIDE ER 20 MEQ TAB.ER PO SCH (22:15)
[2021-10-25] MEDS ORDERED: OXYBUTYNIN XL 5 MG TAB.ER.24 PO SCH (22:15)
[2021-10-25] MEDS: APIXABAN 5 MG TAB PO SCH (22:35)
[2021-10-25] MEDS: MEMANTINE 10 MG TAB PO SCH (22:35)
[2021-10-25] MEDS: hydrALAZINE HCL 25 MG TAB PO SCH (22:35)
[2021-10-25] MEDS: FOLIC ACID 1 MG TAB PO SCH (22:35)
[2021-10-25] MEDS: VALSARTAN 160 MG TAB PO SCH (22:35)
[2021-10-25] MEDS: CITALOPRAM HYDROBROMIDE 20 MG TAB PO SCH (22:35)
[2021-10-26] MEDS: SODIUM CHLORIDE 0.9% 1,000 ML IV SCH (05:49)
[2021-10-26] MEDS ORDERED: LEVOTHYROXINE 75 MCG TAB PO SCH (06:30)
[2021-10-26] MEDS ORDERED: PANTOPRAZOLE 40 MG TABLET PO SCH (07:30)
[2021-10-26 08:04] VITALS: RESP 18
[2021-10-26] MEDS: MEMANTINE 10 MG TAB PO SCH (08:46)
[2021-10-26] MEDS: APIXABAN 5 MG TAB PO SCH (08:47)
[2021-10-26] MEDS: CITALOPRAM HYDROBROMIDE 20 MG TAB PO SCH (08:47)
[2021-10-26] MEDS: FOLIC ACID 1 MG TAB PO SCH (08:47)
[2021-10-26] MEDS: hydrALAZINE HCL 25 MG TAB PO SCH (08:47)
[2021-10-26] MEDS: VALSARTAN 160 MG TAB PO SCH (08:47)
[2021-10-26] MEDS ORDERED: COENZYME Q10 100 MG PO SCH (09:00)
[2021-10-26] MEDS ORDERED: VITAMIN E (DL,TOCOPHERYL ACET) 400 UNIT (180 MG) CAP PO SCH (09:00)
[2021-10-26] MEDS ORDERED: CYANOCOBALAMIN 500 MCG TAB PO SCH (09:00)
[2021-10-26] MEDS ORDERED: ACETAMINOPHEN TAB 325 MG TAB PO STA (09:43)
--- NOTE | 2021-10-26 14:56 | HP ---
HISTORY AND PHYSICAL SUBJECTIVE: We reviewed her case in the emergency room on 10/25/2021. She came in with severe headache with a history of hypertension and prior stroke. Neurology is on consult. Her biggest complaint is her headaches. The report of the CTA shows an old right cerebellar hemispheric infarct and an old occipital and cerebellar infarcts, chronic vessel disease, unchanged from an old CAT scan of 2020. Her main problem is she has been having headaches, waiting for Neurology consult. Home medicines have been given normally. She takes Tylenol for headaches at home. She does feel some spinning sensation when she turns her head and opens her eyes. She has a history of vertigo, but her main problem besides this is her more headaches at this time. No new confusion. HOME MEDICINES: 1. Synthroid 75 mcg daily. 2. Celexa 20 mg daily. 3. Diltiazem 240 daily. 4. Atorvastatin 40 daily. 5. Fenofibrate 160 daily. 6. Vitamin E 400 daily. 7. Xanax 0.25 p.r.n. 8. K-Dur 20 mEq daily. 9. Apresoline 100 b.i.d. 10.Aspirin 81 daily. 11.Neurontin 100 b.i.d. 12.Brilinta 90 b.i.d. 13.Diovan 160 b.i.d. 14.Levaquin, she uses 500 mg just daily recently. Otherwise, 14-point review of systems is mainly worse for severe headaches in bilateral temples. I believe she has vertigo. It is more headaches than vertigo. PAST MEDICAL HISTORY: CVA, TIA, dyslipidemia, hypertension, osteoarthritis, hypothyroidism. PAST SURGICAL HISTORY: Cholecystectomy, tubal ligation, and knee surgery. OBJECTIVE: VITAL SIGNS: Temperature 98, pulse 68, respiratory rate 18 to 20, blood pressure 140s/60s, O2 of 98. CARDIOVASCULAR: S1 and S2. Some scattered rhonchi and wheeze. HEMATOLOGY: Negative Homans. PSYCHIATRIC: Fair mood and affect. OPHTHALMOLOGIC: Pupils are equal, round, and reactive. NEUROLOGIC: She can sit up in bed on her own. She closes her eyes due to headaches in bitemporal area. LABORATORY DATA: Her labs were reviewed. Sodium 130, potassium 5.0, BUN 21, creatinine 0.81. CTA was reviewed. ASSESSMENT: Headaches, history of prior cerebrovascular accidents x2, some vertigo symptoms, mainly for headaches, neurologic clearance before discharged home is her main concern at this point. Her blood pressure is being maintained 117 to 138 over 40s to 50s, saturating 96 on room air. Start her home medicines, vertigo medicines, MMODL / IJN: [id number] /
[2021-10-26 15:29] VITALS: BP 111/58; PULSE 62; TEMP 98.2
--- NOTE | 2021-10-26 16:29 | P.CNNES ---
History of Present Illness Consult date: 10/26/21 Requesting physician: Austin Razo Reason for Consult: Intractable vertigo History of Present Illness: Patient is a 80-year-old female known to neurology service for the past, came to the hospital by ambulance on 10/25/2021 at 12:30 PM. According to the EMS flow sheet, patient was complaining of dizziness and headaches since waking up at around 7:30 in the morning. Patient states the dizziness has worsened since onset. Patient states she went back to sleep and when she woke up, she still felt sick. Patient states she has a prior history of CVA. Patient denies any recent falls or trauma. Patient states her dizziness seems worse when she stands up. Patient denies any chest pain, difficulty breathing, shortness of breath, blurred vision, tinnitus, jaw pain, neck pain, back pain, extremity pain, abdominal pain, nausea vomiting, numbness tingling, cough fever or pain anywhere. Patient mentioned that she has not had enough fluid intake and hasn't been eating much. When examined, patient was alert and oriented 4. Her pupils were equal, round and reacting. Stroke assessment was negative. EKG shows si nus rhythm. Patient's blood pressure was 154/60, pulse is 68, respiration 18, saturation 97%. Blood glucose was 136. Patient's blood pressure shows normal CBC, PT/PTT, sodium 1:30 potassium 5.0, BUN 21 creatinine 0.81. Hepatic panel is normal. CTA of head and neck was negative. Old occipital and cerebellar infarcts. Chronic small vessel ischemia. Overall unchanged as compared to previous exam. Patient states that she took 3 tablets of prednisone the first time, the night prior to the symptoms. She took it for soreness in the left Achilles region. When she woke up at 7:30 AM, with little dizziness, felt cloudy head. As soon as she got up and went to her closet to grab the gown, she felt dizzy. Her helped her to the bathroom. She came back, sat in the couch, was talking to him for about 3-4 minutes, and suddenly she laid down back on the couch, and was not sure if she passed out for just slept but was very sudden. She was out for 8-10 minutes. Patient has never been dizzy before. She claims that she has "4 strokes through the last 4 years". Patient with this current spell, denies any stroke symptoms. Denies any diplopia, no loss of vision, no chest pain, no abdominal pain nausea vomiting or diarrhea. Patient takes Eliquis 5 mg twice a day memantine 10 mg twice a day, hydralazine, levothyroxine, B12, valsartan, Lipitor. She is compliant with medications. On review of records, patient was seen by Dr. Jose Yanez on 10/29/2020 and patient had an acute ischemic stroke (2 lacunar over the right parietal and one on the left occipital). It was felt cardioembolic. Patient's NIH stroke scale was 0. Patient at that time was placed on aspirin and Brilinta (previous to that on Plavix). Patient had another MRI of the brain on 09/05/2019, which showed small left occipital lobe 5 mm area of acute ischemia. Patient's last hemoglobin A1c 5.4 on 10/27/2020, lipid panel with cholesterol 126 LDL 54, HDL 41 and triglycerides 153. B12 240 folate 11.0. Review of Systems Constitutional: Denies chills, Denies fever Eyes: denies blurred vision, denies pain Ears, nose, mouth and throat: Denies headache, Denies sore throat Respiratory: Denies cough Gastrointestinal: Denies abdominal pain, Denies diarrhea, Denies nausea, Denies vomiting Genitourinary: Denies dysuria, Denies hematuria Musculoskeletal: Denies myalgias Musculoskeletal: left: ankle pain Integumentary: Denies pruritus, Denies rash Neurological: Reports as per HPI Psychiatric: Reports anxiety, Denies depression Endocrine: Denies fatigue, Denies weight change Hematologic/Lymphatic: Reports easy bruising Past Medical History Past Medical History: CVA/TIA, Hyperlipidemia, Hypertension, Osteoarthritis (OA), Thyroid Disorder Additional Past Medical History / Comment(s): EGD. ANEMIA. per pt 4 CVAs. History of Any Multi-Drug Resistant Organisms: None Reported Past Surgical History: Cholecystectomy, Tubal Ligation Additional Past Surgical History / Comment(s): LEFT KNEE SURGERY Past Anesthesia/Blood Transfusion Reactions: Blood Transfusion Reaction, Motion Sickness Additional Past Anesthesia/Blood Transfusion Reaction / Comment(s): "'LOSS OF CONSCIOUSNESS WITH A BLODD TRANSFUSION REACTION -CAN TAKE PLASMA SHOTS" PER PATIENT Past Psychological History: Anxiety Smoking Status: Former smoker Past Alcohol Use History: None Reported Additional Past Alcohol Use History / Comment(s): STARTED SMOKING AT AGE 15 QUIT AT AGE 54 SMOKED 1PPD Past Drug Use History: None Reported - Past Family History Father Family Medical History: Cancer Mother Family Medical History: Cancer Additional Family Medical History / Comment(s): LEUKEMIA Medications and Allergies Home Medications Medication Instructions Recorded Confirmed Type Citalopram Hydrobromide [CeleXA] 20 mg PO DAILY 09/02/17 10/25/21 History Fenofibrate 160 mg PO HS 09/02/17 10/25/21 History dilTIAZem HCL [dilTIAZem HCL 24Hr 240 mg PO HS 09/02/17 10/25/21 History ER ([place])] Atorvastatin Calcium [Lipitor] 40 mg PO HS 10/20/20 10/25/21 History Valsartan [Diovan] 160 mg PO BID 30 Days #60 tab 10/30/20 10/25/21 Rx levoFLOXacin [Levaquin] 500 mg PO DAILY 5 Days #5 tab 03/26/21 10/25/21 Rx ALPRAZolam [Xanax] 0.25 mg PO TID PRN 10/25/21 10/25/21 History Apixaban [Eliquis] 5 mg PO BID 10/25/21 10/25/21 History Cholecalciferol [Vitamin D3 (25 25 mcg PO HS 10/25/21 10/25/21 History Mcg = 1000 Iu)] Cyanocobalamin [Vitamin B-12] 500 mcg PO DAILY 10/25/21 10/25/21 History Folic Acid 1 mg PO DAILY 10/25/21 10/25/21 History Levothyroxine Sodium [Synthroid] 150 mcg PO DAILY 10/25/21 10/25/21 History Magnesium Oxide 400 mg PO HS 10/25/21 10/25/21 History Memantine HCl 10 mg PO BID 10/25/21 10/25/21 History Oxybutynin Chloride [Ditropan XL] 5 mg PO HS 10/25/21 10/25/21 History Pantoprazole Sodium [Protonix] 40 mg PO DAILY 10/25/21 10/25/21 History Potassium Chloride ER [K-Dur 20] 20 meq PO HS 10/25/21 10/25/21 History hydrALAZINE HCL [Apresoline] 25 mg PO BID 10/25/21 10/25/21 History Meclizine [Antivert] 25 mg PO QID PRN 30 Days #120 tab 10/26/21 Rx Vitamin E (Dl,Tocopheryl Acet) 400 unit PO DAILY cap 10/26/21 Rx [Vitamin E (400 Iu = 180 mg)] Allergies Allergy/AdvReac Type Severity Reaction Status Date / Time losartan AdvReac shaking Verified 10/25/21 20:35 hands/headache Physical Examination - Vital Signs Vital Signs: Vital Signs Temp Pulse Resp BP BP Pulse Ox 10/26/21 15:00 98.2 F 62 18 111/58 96 10/26/21 13:19 66 18 10/26/21 08:00 66 18 10/26/21 07:00 97.8 F 66 18 138/44 96 10/26/21 02:25 97.7 F 65 15 121/52 93 L 10/25/21 20:22 97.6 F 70 16 117/51 96 10/25/21 20:00 73 18 10/25/21 17:20 97.7 F 73 18 120/61 99 Intake and Output 10/26/21 10/26/21 10/26/21 06:59 14:59 22:59 Intake Total 358 Balance 358 Intake: Oral 358 Other: Voiding Method Toilet # Voids 2 Patient is an elderly female, in no acute distress. Patient is alert awake oriented to time place and person. Speech and language functions are normal. Patient can name and repeat very well. No aphasia or dys arthria. Attention, concentration and fund of knowledge is adequate. On cranial nerve examination, pupils are equal, round and reacting to light, visual burr are full on confrontation, with no neglect on double simultaneous stimulation Extraocular muscles are intact with no nystagmus. Face is symmetric, tongue protrudes to the midline. Palatal elevation and sensation normal, hearing and shoulder shrug normal, facial sensation normal. On muscle strength testing, there is no pronator drift and the strength is normal in arms and legs distally and proximally. Deep tendon reflexes are symmetric biceps 2+, brachioradialis 2+, knees 2+, ankles 1 and plantars downgoing bilaterally. Sensory to touch is equal with no neglect on double simultaneous stimulation. Cerebellar function showed mild ataxia for eobhdv-og-yutz testing bilaterally. No ataxia for zogg-mh-diff testing on either side. Tone and bulk of muscles normal. Gait deferred.. On general examination, there is no carotid bruit or murmur, S1-S2 audible. Chest is clear on consultation. Abdomen is soft nontender. No organomegaly, bowel sounds present. Peripheral pulses are present. No edema. Results - Laboratory Findings CBC and BMP: 10/25/21 13:03 10/25/21 13:03 Abnormal Lab Findings: Abnormal Labs 10/25/21 10/25/21 10/25/21 13:03 13: 13:03 Plt Count 118 L APTT 30.3 H Sodium 130 L Chloride 97 L BUN 21 H Glucose 106 H Assessment and Plan Assessment: * Transient episode of vertigo, unclear etiology. Rule out cerebellar TIA. V ersus adverse effect of prednisone. Patient states that she took 3 tablets of prednisone the night prior for her ankle pain, and woke up with dizzy spell. * History of multiple strokes in the past. * History of arachnoid cyst over the right posterior inferior cerebellar region * History of B12 deficiency * Hypertension * Hyperlipidemia Plan: * Patient's symptoms have resolved. * Continue Eliquis 5 mg twice a day. Consider adding aspirin 81 mg daily, as patient has multiple lacunar infarcts in the past, and aspirin helps for small vessel disease more than anticoagulants. However adding aspirin to anticoagulants does carry hemorrhagic risk. Risks and benefits have to be weighed. Would defer to IM/cardiology. * May consider MRI of the brain and an EEG. Patient declines any testing, as she states her symptoms have resolved and she believes firmly that the symptoms occurred from taking steroids the night prior. * CTA of head and neck reported as "negative". * Hemoglobin A1c 5.4 * Lipid panel with cholesterol 126, LDL 54, HDL 41, triglycerides 153 * B12 240. Continue B12 replacement. May consider parenteral replacement. * Please do not hesitate to contact neurology if any other concerns. * Thank you for the consult.
--- NOTE | 2021-10-27 02:48 | DS ---
DISCHARGE SUMMARY DISCHARGE MEDICATIONS: 1. Vitamin E 400 international units daily. 2. Antivert 25 q.i.d. 3. Celexa 20 mg daily. 4. Fenofibrate 160 daily. 5. Diltiazem 240 daily. 6. Levaquin 500 mg for 5 days for UTI. 7. B12 of 500 mcg daily. 8. Vitamin D3 of 25 mcg daily. 9. Mag oxide 400 daily. 10.Levothyroxine 150 daily. 11.Hydralazine 25 b.i.d. 12. 10 mg b.i.d. 13.Pantoprazole 40 mg daily. 14.Oxybutynin 5 mg daily. 15.Lipitor 40 daily. 16.Diovan 160 b.i.d. 17.Folic acid 1 mg daily. 18.Xanax 0.25 t.i.d. 19.K-Dur 20 mEq daily. 20.Eliquis 5 b.i.d. DISCHARGE DIAGNOSES: 1. Cephalgia/migraine/hypertension acceleration. 2. Vertigo. 3. Bradycardia. 4. Colitis. 5. Abnormal CT of the abdomen. She was admitted for headache and vertigo, imbalance. Dr. Caryt, Neurologist saw her, put her on Antivert. Cerebellar TIA was ruled out. Prednisone was stopped, possibly a prednisone side-effect, , multiple strokes in the past, arachnoid cyst over the right posterior inferior cerebellar region. B12 deficiency, hypertension, dyslipidemia, symptoms have resolved. Continue Eliquis and aspirin. Hypertension controlled. May concern an MRI of the brain. EEG as an outpatient. She wanted to go home and not do this. She was stabilized cleared by Neurology with a normal CTA. Follow up as an outpatient. MMODL / IJN: [id number] /
== END 2021-10-26 19:13 | disposition home or self-care (01) ==
LOC: EC 12:30 → 6NMEDSUR 15:12
PROVIDERS: ADMIT Family Medicine; ATTEND Family Medicine
DX: G43.909 Migraine, unspecified, not intractable, without status migrainosus (principal); R42 Dizziness and giddiness; I10 Essential (primary) hypertension; E78.5 Hyperlipidemia, unspecified; M19.90 Unspecified osteoarthritis, unspecified site; E03.9 Hypothyroidism, unspecified; D64.9 Anemia, unspecified; F41.9 Anxiety disorder, unspecified; E53.8 Deficiency of other specified B group vitamins; R00.1 Bradycardia, unspecified; K52.9 Noninfective gastroenteritis and colitis, unspecified; R93.5 Abnormal findings on diagnostic imaging of other abdominal regions, including retroperitoneum; Z79.01 Long term (current) use of anticoagulants; Z79.890 Hormone replacement therapy; Z79.82 Long term (current) use of aspirin; Z79.02 Long term (current) use of antithrombotics/antiplatelets; Z79.899 Other long term (current) drug therapy; Z88.8 Allergy status to other drugs, medicaments and biological substances; Z86.73 Personal history of transient ischemic attack (TIA), and cerebral infarction without residual deficits; Z90.49 Acquired absence of other specified parts of digestive tract; Z98.51 Tubal ligation status; Z87.891 Personal history of nicotine dependence; Z86.69 Personal history of other diseases of the nervous system and sense organs; Z98.890 Other specified postprocedural states; Z80.6 Family history of leukemia; Z80.9 Family history of malignant neoplasm, unspecified
CPT/HCPCS: 96374; 96375; 99285; 36415; 93005; 80053; 85025; 85610; 85730; 70496; 70498; G0378 ×2; J2765; J3360; Q9967

== ENCOUNTER → 2021-12-12 | Outpatient (CLI) | payer MEDICARE ==
--- NOTE | 2021-12-12 16:37 | MR ---
EXAMINATION TYPE: MR brain wo/w con DATE OF EXAM: 12/12/2021 COMPARISON: Prior MRI brain October 28, 2020 and older studies HISTORY: CVA TECHNIQUE: Multiplanar, multisequence images of the brain and brainstem is performed without and with IV contras t, utilizing 5.5 mL intravenous Gadavist . FINDINGS: Diffusion weighted images demonstrate no evidence of a recent infarct or other diffusion ab normality. There is background [id number] diffuse cerebral atrophy with severe focal and confluent areas o f T2 hyperintensity demonstrated throughout the white matter bilaterally greatest in the deep and per iventricular levels. Persistent prominent CSF involving the posterior 1/2-2/3 of the right posterior fossa suspicious for large arachnoid cyst, local mass effect is redemonstrated axial image 8 and yesy nal image 28 for reference. Midline structures redemonstrate normal morphology. The craniocervical junction remains within chastity l limits. Post contrast images demonstrate no abnormal enhancement more enhancing masses. The dural venous sinuses remain patent. The visualized sinuses are clear and the globes are intact. Nasal septu m remains minimally deviated to the left of midline. IMPRESSION: Background [id number] diffuse cerebral atrophy and moderate to advanced chronic small vessel is chemic changes are redemonstrated. Background stable prominent CSF posterior aspect right posterior f adalberto favoring an arachnoid cyst over old encephalomalacia.
== END | disposition home or self-care (01) ==
LOC: RADMRIMAIN 15:35
PROVIDERS: ATTEND Family Medicine
DX: G31.9 Degenerative disease of nervous system, unspecified (principal); I67.82 Cerebral ischemia
CPT/HCPCS: 70553; A9585

== ENCOUNTER → 2022-02-03 | Outpatient (CLI) | payer MEDICARE | END | disposition home or self-care (01) | LOC: LABWHC1 11:40 | PROVIDERS: ATTEND Family Medicine | DX: Z79.899 Other long term (current) drug therapy (principal) | CPT/HCPCS: 36415; 86480 ==

== ENCOUNTER 2022-02-09 15:04 | Emergency (ER) | payer MEDICARE ==
--- NOTE | 2022-02-09 15:52 | XR ---
EXAMINATION TYPE: XR wrist complete LT DATE OF EXAM: 02/09/2022 COMPARISON: NONE HISTORY: 81-year-old female fall and left wrist pain TECHNIQUE: 4 views FINDINGS: Moderate to severe degenerative change triscaphe joint. Mild to moderate degenerative change first CM C joint. There is a mildly displaced fracture through the base of the ulnar styloid process. There is a transverse fracture through the distal radial metaphysis with mild impaction and minimal dorsal an gulation. Generalized soft tissue swelling. IMPRESSION: Limitations due to the degree of osteopenia. There is a Colles' fracture distal radius as well as a m ildly displaced fracture through the base of the ulnar styloid process. 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
--- NOTE | 2022-02-09 20:11 | ED ---
Fall HPI - General Chief Complaint: Fall Stated Complaint: Fall/Lt wrist injury/3 days ago Time Seen by Provider: 02/09/22 19:56 Source: patient Mode of arrival: ambulatory - History of Present Illness Initial Comments: 194 Independent interpretation of the noncontrast computed tomography scan of the brain by me shows no evidence of acute pathology, age-related atrophy. One view chest x-ray reveals previous sternal sutures. Postsurgical changes. No evidence of definitive acute pathology. No significant change from the previous study. 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 Radiology report is delayed. MD Complaint: fall - Related Data Home Medications Medication Instructions Recorded Confirmed Citalopram Hydrobromide [CeleXA] 20 mg PO DAILY 09/02/17 10/25/21 Fenofibrate 160 mg PO HS 09/02/17 10/25/21 dilTIAZem HCL [dilTIAZem HCL 24Hr 240 mg PO HS 09/02/17 10/25/21 ER (LA)] Atorvastatin Calcium [Lipitor] 40 mg PO HS 10/20/20 10/25/21 ALPRAZolam [Xanax] 0.25 mg PO TID PRN 10/25/21 10/25/21 Apixaban [Eliquis] 5 mg PO BID 10/25/21 10/25/21 Cholecalciferol [Vitamin D3 (25 25 mcg PO HS 10/25/21 10/25/21 Mcg = 1000 Iu)] Cyanocobalamin [Vitamin B-12] 500 mcg PO DAILY 10/25/21 10/25/21 Folic Acid 1 mg PO DAILY 10/25/21 10/25/21 Levothyroxine Sodium [Synthroid] 150 mcg PO DAILY 10/25/21 10/25/21 Magnesium Oxide 400 mg PO HS 10/25/21 10/25/21 Memantine HCl 10 mg PO BID 10/25/21 10/25/21 Oxybutynin Chloride [Ditropan XL] 5 mg PO HS 10/25/21 10/25/21 Pantoprazole Sodium [Protonix] 40 mg PO DAILY 10/25/21 10/25/21 Potassium Chloride ER [K-Dur 20] 20 meq PO HS 10/25/21 10/25/21 hydrALAZINE HCL [Apresoline] 25 mg PO BID 10/25/21 10/25/21 Previous Rx's Medication Instructions Recorded Valsartan [Diovan] 160 mg PO BID 30 Days #60 tab 10/30/20 levoFLOXacin [Levaquin] 500 mg PO DAILY 5 Days #5 tab 03/26/21 Meclizine [Antivert] 25 mg PO QID PRN 30 Days #120 tab 10/26/21 Vitamin E (Dl,Tocopheryl Acet) 400 unit PO DAILY cap 10/26/21 [Vitamin E (400 Iu = 180 mg)] Allergies Allergy/AdvReac Type Severity Reaction Status Date / Time losartan AdvReac shaking Verified 02/09/22 15:17 hands/headache Review of Systems ROS Statement: Those systems with pertinent positive or pertinent negative responses have been documented in the HPI. ROS Other: All systems not noted in ROS Statement are negative. Past Medical History Past Medical History: CVA/TIA, Hyperlipidemia, Hypertension, Osteoarthritis (OA), Thyroid Disorder Additional Past Medical History / Comment(s): EGD. ANEMIA. per pt 4 CVAs. History of Any Multi-Drug Resistant Organisms: None Reported Past Surgical History: Cholecystectomy, Tubal Ligation Additional Past Surgical History / Comment(s): LEFT KNEE SURGERY Past Anesthesia/Blood Transfusion Reactions: Blood Transfusion Reaction, Motion Sickness Additional Past Anesthesia/Blood Transfusion Reaction / Comment(s): "'LOSS OF CONSCIOUSNESS WITH A BLODD TRANSFUSION REACTION -CAN TAKE PLASMA SHOTS" PER PATIENT Past Psychological History: Anxiety Smoking Status: Former smoker Past Alcohol Use History: None Reported Past Drug Use History: None Reported - Past Family History Father Family Medical History: Cancer Mother Family Medical History: Cancer Additional Family Medical History / Comment(s): LEUKEMIA General Exam Limitations: no limitations General appearance: alert, in no apparent distress Head exam: Present: atraumatic, normocephalic, normal inspection Eye exam: Present: normal appearance, EOMI ENT exam: Present: normal exam Neck exam: Present: normal inspection, full ROM Respiratory exam: Present: normal lung sounds bilaterally. Absent: respiratory distress, wheezes, rales, rhonchi, stridor Cardiovascular Exam: Present: regular rate, normal rhythm, normal heart sounds. Absent: systolic murmur, diastolic murmur, rubs, gallop, clicks Left Shoulder Exam: Present: normal inspection, full ROM. Absent: tenderness Upper Arm exam: Present: normal inspection. Absent: tenderness, swelling Elbow exam: Present: normal inspection, full ROM. Absent: tenderness, swelling, abrasion Forearm Wrist exam: Present: tenderness, swelling, ecchymosis, crepitus. Absent: full ROM, abrasion, laceration, deformity, dislocation, erythema, pain with axial thumb loading Hand Wrist exam: Present: tenderness, swelling, ecchymosis. Absent: normal inspection, full ROM, abrasion, laceration, deformity, crepitus, dislocation, erythema, amputation, nail avulsion Vascular: Present: normal capillary refill. Absent: vascular compromise, Pallo, pulse deficit radial art, pulse deficit ulnar art Back exam: Present: normal inspection, full ROM Neurological exam: Present: alert, oriented X3, CN II-XII intact, normal gait. Absent: motor sensory deficit Psychiatric exam: Present: normal affect, normal mood Skin exam: Present: warm, dry, intact, normal color. Absent: rash Course Vital Signs 02/09/22 15:12 Temperature 97.8 F Pulse Rate 70 Respiratory 18 Rate Blood Pressure 159/94 O2 Sat by Pulse 97 Oximetry Procedures - Orthopedic Splinting/Casting Injury #1 Side: left Upper Extremity Injury Location: short arm Upper Extremity Immobilizer: volar splint Other Orthopedic Equipment: other Additional Comments: Distal neurovascular status intact both pre-and post-application Medical Decision Making - Medical Decision Making Was pt. sent in by a medical professional or institution? @ -no Did you speak to anyone other than the patient for history? @ -no Did you review nursing and triage notes? @ -agree Were old charts reviewed? @ -no Differential Diagnosis? @ -Sprain, fracture, dislocation, this is not all-inclusive list EKG interpreted by me (3pts min.)? @ -[none] X-rays interpreted by me (1pt min.)? @ -And interpretation by me reveals distal radius and ulnar fracture, closed CT interpreted by me (1pt min.)? @ -[none] U/S interpreted by me (1pt. min.)? @ -[none] What testing was considered but not performed? (CT, X-rays, U/S, labs)? Why? @None What meds were considered but not given? Why? @ -[none] Did you discuss the management of the patient with other professionals? @ -ED attending physician Did you reconcile home meds? @ -[none] Was smoking cessation discussed for >3mins.? @ -[none] Was critical care preformed (if so, how long)? @ -[none] Were there social determinants of health that impacted care today? How? (Homelessness, low income, unemployed, alcoholism, drug addiction, transportation, low edu. Level, literacy, decrease access to med. care, fdc, rehab)? @ -None Was there de-escalation of care discussed even if they declined? (Discuss DNR or withdrawal of care, Hospice)? @ -Not applicable What co-morbidities impacted this encounter? (DM, HTN, Smoking, COPD, CAD, Cancer, CVA, Hep., AIDS, mental health diagnosis, sleep apnea, morbid obesity)? @ -Noncontributory Was patient admitted / discharged? @ -Patient was discharged after splinting. Neurovascular status intact. Patient given orthopedic follow-up. Treatment plan discussed in detail with the patient. Discussed signs and symptoms of compartment syndrome. Discussed splint care. Undiagnosed new problem with uncertain prognosis? @ -[none] Drug Therapy requiring intensive monitoring for toxicity (Heparin, Nitro, Insulin, Cardizem)? @ -[none] Were any procedures done? @ -Splinting applied by me, short arm, sling Diagnosis/symptom? @ -Left radius and ulnar fracture, closed, initial Acute, or Chronic, or Acute on Chronic? @ -Acute Uncomplicated (without systemic symptoms) or Complicated (systemic symptoms)? @ -Uncomplicated Side effects of treatment? @ -[none] Patient was told to return to the ER for any signs or symptoms worsen. Told to return immediately if any other problems arise. All questions answered. Treatment plan discussed. Patient in agreement Every effort has been made to ensure accuracy of this dictation. However, due to the limitations of electronic medical records and dictation devices, errors in charting still occur. Supervising Dr. Carlson Disposition Clinical Impression: Closed fracture of distal end of left radius Disposition: HOME SELF-CARE Condition: Good Instructions (If sedation given, give patient instructions): Wrist Fracture in Adults (ED), How to Use a Sling (ED), Fall Prevention for Older Adults (ED), Splint Care (ED) Additional Instructions: Follow-up with your regular physician as directed. Return to the ER immediately if any symptoms worsen, new symptoms arise, or any other problems develop. Is patient prescribed a controlled substance at d/c from ED?: No Referrals: Becca Spaulding DO [Doctor of Osteopathic Medicine] - 1-2 days Time of Disposition: 20:11
[2022-02-09 20:33] VITALS: BP 158/77; PULSE 74; RESP 16; TEMP 98.2
== END 2022-02-09 20:32 | disposition home or self-care (01) ==
LOC: EC 15:04
DX: S52.502A Unspecified fracture of the lower end of left radius, initial encounter for closed fracture (principal); I10 Essential (primary) hypertension; G45.9 Transient cerebral ischemic attack, unspecified; E78.5 Hyperlipidemia, unspecified; M19.90 Unspecified osteoarthritis, unspecified site; E07.9 Disorder of thyroid, unspecified; F41.9 Anxiety disorder, unspecified; Z87.891 Personal history of nicotine dependence; Z79.890 Hormone replacement therapy; Z79.899 Other long term (current) drug therapy; Z88.8 Allergy status to other drugs, medicaments and biological substances; W19.XXXA Unspecified fall, initial encounter
CPT/HCPCS: 99283